=== PATIENT | male | born 1960 | race Caucasian/White ===

== ENCOUNTER 2023-08-20 16:35 | Inpatient (IN) ==
--- NOTE | 2023-08-20 16:52 | Emergency Department Note ---
Impression & Plan Acute confusion ED Provider Note HISTORY OF PRESENT ILLNESS: Patient is a 63-year-old male presenting with confusion. Patient presents in custody of the state troopers. Patient's reportedly called the police because he had pulled a gun on her. Patient denies he states that since his discharge from the [facility] 4 days ago, he has been having difficulties getting around at home and has been crawling on his hands and knees secondary to bilateral leg weakness. He denies any chest pain or shortness of breath. He denies any suicidal or homicidal ideation. He denies any current changes in vision, numbness or tingling or weakness in his extremities. Denies any abdominal pain. Denies any fevers. ROS: as above PHYSICAL EXAM: Constitutional: Patient appears in no acute distress. HENT: Head: Normocephalic and atraumatic. Eyes: EOMI, PERRL Mouth/Throat: Mucous membranes moist. Neck: Trachea midline. Neck supple. Cardiovascular: RRR, No murmurs, rubs or gallops. Intact distal pulses. Pulmonary/Chest: No respiratory distress. Breath sounds clear and equal bilaterally. No wheezes or rales. Abdominal: Abdomen soft, no tenderness, rebound or guarding. Musculoskeletal: No edema, tenderness or deformity noted. Skin: Warm and dry. No rash, erythema, pallor or cyanosis Psychiatric: Appropriate mood and affect for situation. Neurological: Alert and keenly responsive. CN II-XII grossly intact, moving all extremities equally and fully. MDM: - Vitals signs showed hypertension - History obtained via patient and EMS. History as above. - Chronic conditions affecting care: None - Differential diagnoses include, but are not limited to: pneumonia; electrolyte abnormality; CVA; worsening intracranial hemorrhage; UTI - Order placed for continuous cardiac monitoring. At this time, monitor showed rate of 72 bpm with normal sinus rhythm, per my interpretation. - External medical records reviewed. Discharge summary from [facility] dated 08/16/2023 was reviewed. Patient was admitted to their facility after being transferred from [facility] emergency department after presenting days after a fall off of a ladder and dizziness. He was found to have a subarachnoid, subdural and cortical contusions. His repeat CT imaging at their facility was stable. He was given seizure prophylaxis and plan for follow-up in TBI clinic in 2 weeks. He was evaluated by PT and OT and was recommended to be discharged home. He was discharged on 08/16/2023. - Laboratory workup interpreted by myself showed normal WBC; slight hypokalemia (K 3.4); normal lactate; normal troponin; normal CK; normal TSH - UA negative for infection - COVID negative - UDS positive for THC - CXR negative for pneumonia, per my interpretation - CT head wo contrast showed interval enlargement of a few foci of disease and development of new foci of intraparenchymal hemorrhage per radiology. - Discussed case with [facility] Neurosurgeon disposition clerk, Dr. Renteria at 18:26. He reviewed the patient's CT imaging at [facility] from a few days ago and today's CT imaging at [facility] that was pushed through to him. He states that there is no evidence of fresh blood. He reports that the hemorrhages appear stable. He does note that there seems to be some worsening edema around the hemorrhages which may account for the patient's confusion. However, he states there would be no need for surgery at this time. He states that the best treatment for these scenarios is time. He also suggested reloading the patient with a gram of Keppra and obtaining a spot EEG to assess for potential subclinical seizures. - Discussion was had with protective services case worker about patient's case and need for admission - Hospitalist consulted for admission - Patient complaining of pain - given 5 mg PO oxycodone. - Patient admitted to [facility] service for further evaluation and management. ASSESSMENT AND PLAN: Diagnosis: acute confusion Plan: admit Past Med/Surg History Social History Smoking Status: Unknown if ever smoked Preferred Language: Luxembourgish Feels Safe at Home: Hesitant to Answer Allergies Allergies Allergy/AdvReac Type Severity Reaction Status Date / Time No Known Allergies Allergy Unverified 01/17/13 13:33 Home Meds Home Medications Medication Instructions Recorded Confirmed Wound Cream See Rx Instructions .Route .COMPLEX 08/20/23 08/20/23 acetaminophen 325 mg PO UD PRN Pain 08/20/23 08/20/23 docusate sodium 100 mg capsule 100 mg PO BID 08/20/23 08/20/23 Results & Data (ED) Vital Signs Vital Signs - 24 hr 08/20/23 16:47 08/20/23 17:00 08/20/23 17:01 Temperature 36.8 C Temperature Source Axillary Pulse Rate 65 70 Pulse Rate [Apical] Pulse Rhythm Regular Pulse Rhythm [Apical] Pulse Strength [Apical] Respiratory Rate 18 20 Respiratory Effort / Characteristics Non-Labored Spontaneous Respiratory Depth Normal Respiratory Pattern Blood Pressure 157/100 H Blood Pressure [Left Arm] Blood Pressure Mean 119 Blood Pressure Mean [Left Arm] Pulse Oximetry 100 100 100 Oxygen Delivery Method Room Air Room Air Room Air Sepsis New/Unexplained Change in Mental Status Yes Sepsis Action Taken by Nursing No Action Required 08/20/23 17:06 08/20/23 17:21 08/20/23 19:37 Temperature Temperature Source Pulse Rate 73 Pulse Rate [Apical] 74 70 Pulse Rhythm Pulse Rhythm [Apical] Regular Pulse Strength [Apical] Normal Respiratory Rate 19 19 Respiratory Effort / Characteristics Non-Labored Spontaneous Non-Labored Spontaneous Respiratory Depth Normal Normal Respiratory Pattern Regular Blood Pressure Blood Pressure [Left Arm] 157/102 H 151/101 H Blood Pressure Mean Blood Pressure Mean [Left Arm] 120 117 Pulse Oximetry 97 96 Oxygen Delivery Method Room Air Room Air Sepsis New/Unexplained Change in Mental Status Sepsis Action Taken by Nursing Laboratory Data 08/20/23 16:52 08/20/23 16:52 Lab Results 08/20/23 08/20/23 08/20/23 Range/Units 16:52 17:14 Unknown WBC 7.59 (4.8-10.8) K/ul RBC 4.84 (4.70-6.10) M/uL Hgb 14.3 (14.0-18.0) g/dl Hct 40.5 L (42.0-52.0) % MCV 83.7 (80.0-100.0) fL MCH 29.5 (25.0-34.0) pg MCHC 35.3 (32.0-36.0) g/dL RDW Std Deviation 39.2 (36.4-46.3) fL RDW Coeff of Lovely 12.8 (11.5-14.5) % Plt Count 351 (130-400) K/uL MPV 8.6 L (9.4-12.4) fL Immature Gran % (Auto) 0.9 % Neut % (Auto) 63.2 % Lymph % (Auto) 23.1 % [place] % (Auto) 10.9 % Eos % (Auto) 1.4 % Baso % (Auto) 0.5 % Neut # (Auto) 4.79 (1.40-6.50) K/uL Lymph # (Auto) 1.75 (1.20-3.40) K/uL [place] # (Auto) 0.83 H (0.11-0.59) K/uL Eos # (Auto) 0.11 (0.00-0.50) K/uL Baso # (Auto) 0.04 (0.00-0.20) K/uL Immature Gran # (Auto) 0.07 (0.01-0.20) K/uL PT 11.0 (9.0-12.0) Seconds INR 1.0 (0.9-1.1) Sodium 134 L (136-145) mmol/L Potassium 3.4 L (3.5-5.1) mmol/L Chloride 98 (98-107) mmol/L Carbon Dioxide 29 (21-32) mmol/L Anion Gap 7 (3-11) BUN 17 (6-23) mg/dl Creatinine 0.71 (0.6-1.4) mg/dl Est Cr Clr Drug Dosing 107.2 ml/min Est GFR ( Amer) 115.7 ml/min Est GFR (Non-Af Amer) 99.9 ml/min BUN/Creatinine Ratio 23.9 H (10-20) Glucose 97 (70-99(Fasting)) mg/dl Lactate 1.2 (0.4-2.0) mmol/L Calcium 8.9 (8.6-10.3) mg/dl Magnesium 2.0 (1.7-2.4) mg/dl Total Bilirubin 0.5 (0.2-1.0) mg/dl AST 12 L (13-39) U/L ALT 16 (7-52) U/L Alkaline Phosphatase 71 (34-104) U/L Total Creatine Kinase 41 (30-223) U/L Troponin I High Sens 5.7 (0-20) pg/ml Total Protein 6.5 (6.0-8.3) gm/dl Albumin 4.2 (3.4-5.0) gm/dl Globulin 2.3 L (2.5-4.0) gm/dl Albumin/Globulin Ratio 1.8 (0.9-2) TSH 2.671 (0.300-4.500) uIu/ml Urine Color Dark Yellow Urine Appearance Clear (Clear) Urine pH 6.0 (4.5-7.5) Ur Specific [place] 1.027 (1.000-1.030) Urine Protein Negative (Negative) Urine Glucose (UA) Negative (Negative) Urine Ketones Trace H (Negative) Urine Blood Negative (Negative) Urine Nitrite Negative (Negative) Urine Bilirubin Negative (Negative) Urine Urobilinogen Positive H (Negative) Ur Leukocyte Esterase Negative (Negative) Urine Opiates Screen Neg (Neg) Ur Methadone, Qual Neg (Neg) Urine Barbiturates Neg (Neg) Ur Phencyclidine (PCP) Neg (Neg) U Amphetamin/Meth Scrn Neg (Neg) MDMA (Ecstasy) Screen Neg (Neg) U Benzodiazepines Scrn Neg (Neg) Ur Cocaine Metabolite Neg (Neg) U Marijuana (THC) Screen Pos H (Neg) SARS-CoV-2 (PCR) NEGATIVE (Negative) Administered Medications Discontinued Medications Oxycodone HCl (Oxycodone Hcl Ir 5 Mg Tab (Immediate Release)) 5 mg PO NOW STA Stop: 08/20/23 19:38 Last Admin: 08/20/23 19:45 Dose: 5 mg Documented By: [facility] Imaging Data Radiologist's Impression: Head CT 08/20/23 16:41 CT head/brain wo con CLINICAL HISTORY: confusion Technique: Contiguous axial CT images of the head were acquired from the base of the skull to the vertex without intravenous contrast administration. Images were viewed in brain, subdural and bone windows. Automated dose lowering techniques and/or adjustment according to patient size were utilized for this exam. Comparison: Comparison is made to CT head 08/13/2023 Findings: Previously noted foci of cortical contusions demonstrate expected evolutionary change. There are new foci of acute contusion such as in the right frontal lobe, and there is interval enlargement of the left frontotemporal focus of hemorrhage, previously measuring 21 mm, now 26 mm. Trace subarachnoid hemorrhage, less conspicuous on the prior exam. Mucous retention cysts are seen in the left maxillary sinus. The orbits appear normal. Redemonstration of scalp swelling, similar to prior. Impression: 1. Interval enlargement of a few foci of disease and development of new foci of intraparenchymal hemorrhage. 2. Previously noted subarachnoid and subdural hematomas are less conspicuous on today's exam which may reflect evolutionary change. 3. Scalp swelling. No calvarial fracture. ACT 112: Negative or not required by law. Electronically signed by: Boni Yost M.D. 08/20/2023 5:25 PM Chest X-Ray 08/20/23 16:50 XR chest 1V portable CLINICAL HISTORY: weakness TECHNIQUE: Single frontal radiograph of the chest was obtained. Comparison: Comparison is made to chest radiograph 09/10/2011 FINDINGS: No lines and tubes are seen. The cardiomediastinal silhouette is normal. The lungs are clear. No evidence of pleural effusion or pneumothorax. IMPRESSION: No acute chest disease. ACT 112: Negative or not required by law. Electronically signed by: Boni Yost M.D. 08/20/2023 5:15 PM Discharge Plan Visit Data Chief Complaint: Confusion Stated Complaint: CONFUSION ED Provider: Sandy Buck Discharge Problem: Acute confusion Forms Stand Alone Forms: [facility] Prescriptions Prescriptions: No Action docusate sodium 100 mg Capsule 100 mg PO BID acetaminophen 325 mg PO UD PRN (Reason: Pain) Rx Instructions: per it's 3 tablets daily Wound Cream See Rx Instructions .ROUTE .COMPLEX Rx Instructions: Unknown dose Bacitracin? per Referrals Referrals: PCP,NO [Primary Care Provider] -
[2023-08-20 17:11] LABS: Basophils # (auto) 0.04 K/uL (0.00-0.20); Basophils % (auto) 0.5 %; Eosinophils # (auto) 0.11 K/uL (0.00-0.50); Eosinophils % (auto) 1.4 %; Hematocrit (blood only) 40.5 % (42.0-52.0); Hemoglobin 14.3 g/dl (14.0-18.0); Immature Granulocytes # (auto) 0.07 K/uL (0.01-0.20); Immature Granulocytes % (auto) 0.9 %; Lymphocytes # (auto) 1.75 K/uL (1.20-3.40); Lymphocytes % (auto) 23.1 %; Mean Corpuscular Hemoglobin 29.5 pg (25.0-34.0); Mean Corpuscular Hgb Conc 35.3 g/dL (32.0-36.0); Mean Corpuscular Volume 83.7 fL (80.0-100.0); Mean Platelet Volume 8.6 fL (9.4-12.4); Monocytes # (auto) 0.83 K/uL (0.11-0.59); Monocytes % (auto) 10.9 %; Neutrophils # (auto) 4.79 K/uL (1.40-6.50); Neutrophils % (auto) 63.2 %; Platelet Count 351 K/uL (130-400); RDW Coefficient of Variation 12.8 % (11.5-14.5); RDW Standard Deviation 39.2 fL (36.4-46.3); Red Blood Count 4.84 M/uL (4.70-6.10); White Blood Count 7.59 K/ul (4.8-10.8)
--- NOTE | 2023-08-20 17:16 | XRay Report ---
XR chest 1V portable CLINICAL HISTORY: weakness TECHNIQUE: Single frontal radiograph of the chest was obtained. Comparison: Comparison is made to chest radiograph 09/10/2011 FINDINGS: No lines and tubes are seen. The cardiomediastinal silhouette is normal. The lungs are clear. No evid ence of pleural effusion or pneumothorax. IMPRESSION: No acute chest disease. ACT 112: Negative or not required by law. Electronically signed by: Boni Yost M.D. 08/20/2023 5:15 PM
--- NOTE | 2023-08-20 17:27 | CT Scan Report ---
CT head/brain wo con CLINICAL HISTORY: confusion Technique: Contiguous axial CT images of the head were acquired from the base of the skull to the ketty severino without intravenous contrast administration. Images were viewed in brain, subdural and bone [facility] Automated dose lowering techniques and/or adjustment according to patient size were utilized for this exam. Comparison: Comparison is made to CT head 08/13/2023 Findings: Previously noted foci of cortical contusions demonstrate expected evolutionary change. There are new foci of acute contusion such as in the right frontal lobe, and there is interval enlargement of the l eft frontotemporal focus of hemorrhage, previously measuring 21 mm, now 26 mm. Trace subarachnoid he morrhage, less conspicuous on the prior exam. Mucous retention cysts are seen in the left maxillary sinus. The orbits appear normal. Redemonstratio n of scalp swelling, similar to prior. Impression: 1. Interval enlargement of a few foci of disease and development of new foci of intraparenchymal hem orrhage. 2. Previously noted subarachnoid and subdural hematomas are less conspicuous on today's exam which m ay reflect evolutionary change. 3. Scalp swelling. No calvarial fracture. ACT 112: Negative or not required by law. Electronically signed by: Boni Yost M.D. 08/20/2023 5:25 PM
[2023-08-20 17:31] LABS: Albumin Globulin Ratio 1.8 (0.9-2); Albumin Level 4.2 gm/dl (3.4-5.0); BUN Creatinine Ratio 23.9 (10-20); Bilirubin,Total 0.5 mg/dl (0.2-1.0); Calcium 8.9 mg/dl (8.6-10.3); Creatinine Clr Calc Pharmacy 107.2 ml/min; Est GFR (African American) 115.7 ml/min; Est GFR (Non-African American) 99.9 ml/min; Globulin 2.3 gm/dl (2.5-4.0); Potassium 3.4 mmol/L (3.5-5.1); Total Protein 6.5 gm/dl (6.0-8.3)
[2023-08-20 17:33] LABS: Appearance Urine Clear (Clear); Bilirubin Urine Negative (Negative); Blood Urine Negative (Negative); Color Urine Dark Yellow; Glucose Urine UA Negative (Negative); Ketones Urine Trace (Negative); Leukocyte Esterase Urine Negative (Negative); Nitrite Urine Negative (Negative); Protein Urine Negative (Negative); Specific Gravity Urine 1.027 (1.000-1.030); Urobilinogen Urine Positive (Negative)
[2023-08-20 17:36] LABS: Troponin I High Sensitivity 5.7 pg/ml (0-20)
[2023-08-20 17:46] LABS: Thyroid Stimulating Hormone 2.671 uIu/ml (0.300-4.500)
[2023-08-20 18:06] LABS: Amphetamines+Metham, Urine Neg (Neg); Barbiturates, Urine Neg (Neg); Benzodiazepine, Urine Neg (Neg); Cocaine, Urine Neg (Neg); MDMA (Ecstacy), Urine Neg (Neg); Marijuana, Urine Pos (Neg); Methadone, Urine Neg (Neg); Opiate, Urine Neg (Neg); Phencyclidine, Urine Neg (Neg)
[2023-08-20] MEDS: oxyCODONE HCL IR 5 MG TAB (IMMEDIATE RELEASE) PO STA (19:45)
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
[2023-08-20] MEDS ORDERED: POLYETHYLENE (MIRALAX) 17 GM PACK PO PRN (22:02)
[2023-08-20] MEDS ORDERED: LORazepam 1.5 MG in SYRINGE 0.75 ML IV PRN (22:02)
[2023-08-20] MEDS ORDERED: NITROGLYCERIN SL 0.4 MG/TAB TAB SL PRN (22:02)
[2023-08-20] MEDS: DOCUSATE SODIUM 100 MG CAP PO SCH (22:41)
[2023-08-20] MEDS: POTASSIUM CHLORIDE CRTAB 20 MEQ TABCR PO STA (22:41)
[2023-08-20] MEDS: ACETAMINOPHEN 325 MG TAB PO PRN (23:25)
--- OUTSIDE RECORDS SUMMARY | 2023-08-21 01:14 | External Medical Summary | Summary of Care ---
Author Name Unknown Organization [facility] Address [address] [place] [address] Phone [phone] Care Team Providers Care Heel Slugger Name Role Phone Unavailable Primary Care Provider Unavailabl e Reason for Referral * Precert (Within 10 days (routine)) - Pending Review Specialty Diagnoses / Procedures Referred By Contac t Referred To Contact Radiology Diagnoses SDH (subdural hematoma) (HCC) SAH (subarachnoid hemorrhage) (HCC) Intracranial bleed (HCC) Procedures CT HEAD/BRAIN WO CONTRAST Garrick Woods MD [address] [place] [address] Referral ID Status Reason Start Date Expiration Date V isits Requested Visits Authorized [id number] Pending Review 08/29/2023 999 999 Reason for Visit * Reason Comments Trauma Fall * Auth/Cert Specialty Diagnoses / Procedures Referred By Contac t Referred To Contact Diagnoses Trauma Gerardo Arango MD [address] [place] [address] [facility] [address] [place] [address] Referral ID Status Reason Start Date Expiration Date Visits Re quested Visits Authorized [id number] Encounter Details Date Type Department Care Team (Latest Contact Info) Description 08/13/2023 12:59 PM EDT - 08/16/2023 2:51 PM EDT Hospital Encounter [facility], [facility] 6th Floor [address] [place] [address] Yuniel Mohan MD [address] [place] [address] Gerardo Arango MD [address] [place] [address] Jose Jackson DO [address] [place] [address] EKG Report Discharge Disposition: Home with Services Allergies No known active allergiesdocumented as of this encounter (statuses as of 08/17/2023) Medications Medication Sig Dispensed Refills Start Date End Date Status Acetaminophen 325 MG Oral Tablet (Tylenol) Take 3 Tablets by mouth every 6 hours as needed for Mild Pain or Other (headache). 30 Tablet 0 08/16/2023 Active Bacitracin Zinc 500 UNIT/GM External Ointment Apply topically to affected area 2 times a day for 7 days. Apply to abrasions 113.6 g 0 08/16/2023 08/23/2023 Active Docusate Sodium 100 MG Oral Capsule (Colace) Take 1 Capsule by mouth in the morning and 1 Capsule before bedtime. Do all this for 5 days. 10 Capsule 0 08/16/2023 08/21/2023 Active levETIRAcetam 500 MG Oral Tablet (Keppra) Take 1 Tablet by mouth in the morning and 1 Tablet before bedtime. Do all this for 4 days. 8 Tablet 0 08/16/2023 08/20/2023 Active oxyCODONE HCl 5 MG Oral Tablet (Oxy IR) Take 1 Tablet by mouth every 6 hours as needed for moderate pain. 12 Tablet 0 08/16/2023 Active documented as of this encounter (statuses as of 08/17/2023) Active Problems Problem Noted Date Diagnosed Date Fall from ladder 08/13/2023 Intracranial bleed 08/13/2023 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 documented as of this encounter (statuses as of 08/17/2023) Immunizations Name Administration Dates Next Due TDAP (age 11 and older)(Adacel) 08/13/2023 documented as of this encounter Social History Tobacco Use Types Packs/Day Years Used Date Smoking Tobacco: Former Cigarettes 1.5 3 0 06/04/1976 - 06/04/1979 Smokeless Tobacco: Never Tobacco Cessation:Counseling Given: Not Answered Alcohol Use Standard Drinks/Week Comments Not Currently 5 (1 standard drink = 0.6 oz pur e alcohol) Sex and Gender Information Value Date Recorded Sex Assigned at Not on file Gender Identity Not on file Sexual Orientation Not on file Job Start Date Occupation Industry Not on file Not on file Not on file documented as of this encounter Last Filed Vital Signs Vital Sign Reading Time Taken Comments Blood Pressure 141/85 08/16/2023 2:25 PM EDT Pulse 55 08/16/2023 2:25 PM EDT Temperature 36.5 C (97.7 F) 08/16/2023 2:25 PM ED T Respiratory Rate 16 08/16/2023 2:25 PM EDT Oxygen Saturation 96% 08/16/2023 2:25 PM EDT Inhaled Oxygen Concentration - - Weight 78 kg (171 lb 15.3 oz) 08/15/2023 8:00 AM EDT Height 185.4 cm (6' 1") 08/13/2023 2:15 PM EDT Body Mass Index 22.69 08/13/2023 2:15 PM EDT documented in this encounter Functional Status Functional Status Response Date of Assess ment Are you deaf or do you have serious difficulty h earing? No 08/13/2023 Are you blind or do you have serious difficulty seeing, even when wearing glasses? No 08/13/2023 Do you have serious difficul ty walking or climbing stairs? (5 years old or older) No 08/13/2023 Do you have difficulty dress ing or bathing? (5 years old or older) No 08/13/2023 Because of a physical, menta l, or emotional condition, do you have difficulty doing errands alone such as visiting a doctor s office or shopping? (15 years old or older) No 08/13/19 Cognitive Status Response Date of Assessm ent Because of a physical, menta l, or emotional condition, do you have serious difficulty concentrating, remembering, or making decisions? (5 years old or older) No 08/13/2023 documented as of this encounter Discharge Summaries * Bria Dooley PA-C - 08/16/2023 10:55 AM EDT [address] [address] Admission Date: 08/13/2023 Discharge Date: 08/16/2023 DISCHARGE DIAGNOSES: Active Hospital Problems Diagnosis *Principal Diagnosis - Fall from ladder Intracranial bleed (HCC) Resolved Hospital Problems No resolved problems to display. Other Significant Diagnoses: none CONDITION ON DISCHARGE: stable Cognition: normal DISPOSITION ON DISCHARGE: home with home health FOLLOW-UP: Future Appointments This patient does not currently have any appointments scheduled. MEDICATIONS ON DISCHARGE: MEDICATION UPDATES AT DISCHARGE START taking these medications INSTRUCTIONS Acetaminophen 325 MG Tablet Commonly known as: Tylenol Take 3 Tablets by mouth every 6 hours as needed for Pain, Mild or Other (headache). bacitracin zinc 500 UNIT/GM ointment Apply topically to affected area 2 times a day for 7 days. Apply to abrasions Docusate Sodium 100 MG Capsule Commonly known as: Colace Take 1 Capsule by mouth in the morning and 1 Capsule before bedtime. Do all this for 5 days. levETIRAcetam 500 MG Tablet Commonly known as: Keppra Take 1 Tablet by mouth in the morning and 1 Tablet before bedtime. Do all this for 4 days. oxyCODONE 5 MG immediate release tablet Commonly known as: Oxy IR Take 1 Tablet by mouth every 6 hours as needed for Pain, Moderate. ALLERGIES: Patient has no known allergies. INSTRUCTIONS: Activity: No strenuous activity for 4 weeks Diet: normal diet Code Status: Full Code Indwelling devices: none ADMISSION HISTORY & PHYSICAL EXAM (focused): HISTORY AND PHYSICAL EXAMINATION - Trauma Surgery [address] [address] Name: Mikey Neal Location: Date: 08/13/2023 Time: 1:04 PM Date and Time Patient was Seen: 08/13/2023 at 13:10:09 FINAL ADMISSION STATUS: Alert Level 2, time - 1233 Dr. Arango led the Trauma Team in the care of this patient. The following represents documentation of the resuscitation performed by the entire trauma team under the leadership of the physician. There was pre-hospital notification of the case and patient condition. Chief Complaint: Fell off ladder History of Present Illness: 63 year old male with no significant past medical history who presents 2 days after falling off a ladder about 7-10 feet. He was climbing down when he had one foot off the rungs of the ladder resulting in him falling. He landed on his right side trying to break his fall and then striking his head. Witnessed by his who per EMS reported was brief LOC. [place] okay but started to develop worseningdizziness which prompted them to take him to the ED at [facility] today. Did vomit once yesterday while trying to eat. Denies fevers, chills, pain, abd pain, chest pain, extremity pain, numbness, tingling, HOLT. Scanned at [facility] which found SDH, SAH, and cortical contusions. Brought here for further management. Hasn't seen a PCP in decades. Denies significant PMHx, surgical hx. Denies smoking, recreational drugs (did weed many many years back), and ETOH use. MECHANISM OF INJURY: Fall Height of Fall: 7-10ft MODE OF TRANSPORTATION: helicopter LOSS OF CONSCIOUSNESS: yes TETANUS VACCINE: There are no preventive care reminders to display for this patient. Administered in Trauma Comal: no PAST MEDICAL HISTORY: Past Medical History No past medical history on file. PAST SURGICAL HISTORY: Past Surgical History Past Surgical History: Procedure Laterality Date EGD-ENDOSCOPIC ULTRASOUND 10/10/2011 UPPER GI ENDOSCOPY ENDOSCOPIC ULTRASOUND performed by DALY BLANCO at [facility], NO INFLAMMATION CURRENT HOSPITAL MEDICATIONS: Note that discontinued and completed medications (per the MAR) continue to display for 24 hours. Ordered medications to be given in the future also display. Current Facility-Administered Medications Medication Dose Route Frequency Provider Acetaminophen (Tylenol) tab 975 mg 975 mg Oral Q6H Huseyin Shetty PA-C bacitracin zinc ointment Topical BID(AM/PM) Tiffany Sims PA-C Docusate Sodium (Colace) cap 100 mg 100 mg Oral BID(AM/PM) Huseyin Shetty PA-C levETIRAcetam (Keppra) 500 mg in 100 mL ivpb *LOCKED DOSE* 500 mg IV Piggyback BID(AM/PM) Huseyin Shetty PA-C NSS infusion Intravenous Continuous Huseyin Shetty PA-C ondansetron ODT (Zofran) tab 4 mg 4 mg On Tongue Q6H PRN Huseyin Shetty PA-C Or ondansetron (Zofran) inj 4 mg 4 mg IV Push Q6H PRN Huseyin Shetty PA-C oxyCODONE (Oxy IR) tab 10 mg 10 mg Oral Q4H PRN Huseyin Shetty PA-C oxyCODONE (Oxy IR) tab 5 mg 5 mg Oral Q4H PRN Huseyin Shetty PA-C senna (Senokot) 2 Tablet 2 Tablet Oral BID(AM/PM) Huseyin Shetty PA-C No current outpatient medications on file. ALLERGIES: Allergies Patient has no known allergies. SOCIAL HISTORY: Social History Social History Tobacco Use Smoking status: Former Current packs/day: 0.00 Average packs/day: 1.5 packs/day for 3.0 years (4.5 ttl pk-yrs) Types: Cigarettes Start date: 06/04/1976 Quit date: 06/04/1979 Years since quittin.2 Smokeless tobacco: Not on file Substance Use Topics Alcohol use: Yes Alcohol/week: 5.0 standard drinks of alcohol Types: 6 12 oz of beer per week Drug use: No FAMILY HISTORY: No family history on file. REVIEW OF SYSTEMS: Constitutional: (-) fever chills sweats or weight loss Cardiovascular: (-) negative: no chest pain, dyspnea, syncope, or palpitations Pulmonary: (-) negative: no cough, wheezing, or shortness of breath Abdominal/GI: (-) negative: no pain, heartburn, dysphagia, bleeding, change in bowel habits, nauseaor vomiting Male : unremarkable Skin: (-) negative: no rash or new or changing moles Neurology: (+) nausea Psychiatry: (-) negative: no depression or anxiety See HPI for pertinent positives and negatives, all other systems are negative. COLLARED: yes BACKBOARD: no INTUBATED: no SIZE OF TUBE: N/A DISTANCE AT TEETH/GUMS: N/A PHYSICAL EXAM: Most Recent Vital Signs: BP: 134 mmHg/86 mmHg (08/13/23 1335) Pulse: 65 (08/13/23 1335) Temp: 36.22 C (08/13/23 1310) Temp Summary: Temp Min: 36.2 C (97.2 F) Max: 36.2 C (97.2 F) SpO2: 100 % (08/13/23 1335) O2 flow rate: Supplemental O2 Delivery: Room Air, None (08/13/23 1310) Rhythm: NSR Head: normocephalic, 1.3cm superficial/partial thickness laceration left posterior scalp Eyes: pupils 2 mm, bilaterally reactive to light, extraocular muscles intact ENT: tympanic membranes bilaterally clear, oropharynx clear, dried blood left external ear Neck: supple, non-tender, trachea midline Respiratory: clear to auscultation bilaterally Cardiovascular: regular rate and rhythm, palpable peripheral pulses present, no murmurs auscultated Abdomen: soft, non-tender, non-distended, normal bowel sounds Back: no tenderness across thoracic / lumbar spine Pelvis: non-tender, stable to anterior-posterior/lateral compression Rectal: deferred, no external blood Genitourinary: normal male genitalia Musculoskeletal: no palpable long bone deformities, motor / sensation grossly intact Skin: scattered ecchymosis of all extremities in various stages of healing, left elbow superifical 3cm laceration w scab Neurologic: GCS Adult: eyes open 4 = spontaneous, best verbal response 5 = verbally appropriate forage, best motor response 6 = obeys commands appropriate for age, alert and oriented x3 HOSPITAL COURSE (focused): Mikey Neal was admitted on 08/13/23 after a fall from a ladder two days previously. He was initially seen at [facility] were CT scan showed SHD, SAH, and IPH and he was transferred to [facility] where Neurosurgery was consulted and a repeat CT scan was done and was stable. He was given seizure prophylaxis per protocol and a planned follow up in TBI clinic will be scheduled in 2 weeks. He was evaluated by physical and occupational therapies and was able to return home with family on 08/16/23. Operations & Procedures: none this admission Complications: none significant SIGNIFICANT RESULTS: Vital Signs (last recorded): Most Recent Systolic BP: 127 mmHg (08/16/23 1118) Most Recent Diastolic BP: 79 mmHg (08/16/23 1118) Pulse: 56 (08/16/23 1118) Resp: 16 (08/16/23 1118) Most Recent Temperature: 36.67 C (08/16/23 1118) Weight: 78 kg (171 lb 15.3 oz) (08/15/23 0800) SpO2: 95 % (08/16/23 1118) Labs: CHEMISTRY: BUN, Creatinine, GFR Estimated, Sodium, Potassium, Chloride, Carbon Dioxide, Glucose, Calcium (see below for most recent value): Lab Results Component Value Date/Time BUN 14 08/16/2023 06:58 AM CREAT 0.5 (L) 08/16/2023 06:58 AM NA 131 (L) 08/16/2023 06:58 AM POTASSIUM 3.9 08/16/2023 06:58 AM CL 98 08/16/2023 06:58 AM CO2 20 (L) 08/16/2023 06:58 AM CA 8.7 08/16/2023 06:58 AM BLOOD COUNT: WBC, Hgb, Platelets (see below for most recent value): Lab Results Component Value Date/Time WBC 8.84 08/16/2023 06:58 AM HGB 14.5 08/16/2023 06:58 AM PLT 276 08/16/2023 06:58 AM Imaging (focused): CT HEAD/BRAIN WO CONTRAST Final Result EXAM CT HEAD/BRAIN WO CONTRAST - 08/14/2023 12:21 pm HISTORY new confusion. Assess for worsening bleed TECHNIQUE Axial scans were obtained through the brain using standard protocol. Coronal and sagittal reconstructions were performed. COMPARISON 08/13/2023 FINDINGS Again seen are multiple hemorrhagic contusions, predominantly in the inferior frontal and anterior temporal lobes more. There is some surrounding vasogenic edema. Small subdural hematomas along the frontal and temporal convexities, small amount of intraventricular and subarachnoid blood are again seen. There is no appreciable change. No midline shift, hydrocephalus, or effacement of cisterns. No scalp hematoma again seen. No fluid seen in the sinuses and mastoid air cells. IMPRESSION IMPRESSION Stable posttraumatic hemorrhages in the brain. CT HEAD/BRAIN WO CONTRAST Final Result EXAM CT HEAD/BRAIN WO CONTRAST HISTORY repeat TBI COMPARISON Outside study dated 08/13/2023 performed at proximally 10:[address] scan of the head was performed without intravenous contrast. FINDINGS Redemonstrated hemorrhagic contusions involving the right greater than left inferior frontal lobes, left frontal operculum, right lateral frontal lobe and anterior temporal lobes. Scattered subarachnoid hemorrhage is also present. Trace subdural hematomas are also seen along the inferior frontal convexities. Overall findings are similar to the previous study. No midline shift. Generalized volume loss is present with prominence of the ventricles and sulci. Mild paranasal sinus mucosal thickening is present. A mucous retention cyst is seen within the left maxillary sinus. IMPRESSION IMPRESSION Redemonstrated hemorrhagic contusions, subarachnoid hemorrhage, and trace subdural hematomas, similar to the previous study. XR CHEST 1 VIEW Final Result EXAM: EXAM: XR CHEST 1 VIEW DATE TIME: 08/13/2023 - 08/13/2023 1:41 pm HISTORY: 63 y/o M trauma COMPARISON: None FINDINGS: No focal consolidation, pleural effusion, or pneumothorax. Cardiac silhouette is normal in size. No acute osseous abnormality. IMPRESSION IMPRESSION: No acute cardiopulmonary disease. RADIOLOGY EXAM - CT (IMAGES ONLY, NO REPORT) Final Result This is an imaging study not interpreted or resulted by a [employer] or [employer] contracted radiologist. RADIOLOGY EXAM - CT (IMAGES ONLY, NO REPORT) Final Result This is an imaging study not interpreted or resulted by a [employer] or [employer] contracted radiologist. CT HEAD/BRAIN WO CONTRAST (Results Pending) CONSULTS ORDERED: NEUROSURGERY CONSULT IP ADULT OCCUPATIONAL THERAPY CONSULT IP ADULT PHYSICAL THERAPY CONSULT IP ADULT SPEECH THERAPY CONSULT IP (ACUTE CARE REHAB) PSYCHOLOGY CONSULT IP BALANCE CENTER CONSULT IP REFERRING PHYSICIAN: Ref: [id number]] NO STREET ADDRESS AVAILABLE None (office) None (fax) PRIMARY CARE PROVIDER: PCP: No primary care provider on file. No primary physician on file. None (office) None (fax) Note: To contact a physician responsible for this patients hospital care, please call [facility] [phone]. documented in this encounter Discharge Instructions * Discharge Instr - AVS* Bria Dooley PA-C - 08/16/2023 11:20 AM EDT Discharge Date: 08/16/23 For questions related to your brain injuries you may contact [facility] Neurosurgery directly at during normal business hours. For after-hours emergencies call [phone] and have your doctor paged. The information below provides you with the instructions and the list of medications you need to betaking following discharge from the hospital. If you have any questions, please ask before leaving.Please carry this letter with you when you see your doctor in the clinic. If you have questions, you can reach us at the numbers above. Brief summary of your inpatient care: You were seen by neurosurgery for your traumatic brain injuries (multiple areas of head bleeds) Youwere watched closely with neurological checks. You were given medication (Keppra) to prevent seizures. You need to continue taking this medication as prescribed for total of 1 week after injury. You had a repeat CAT scan to ensure that the head bleed remained stable. You will need to follow-up withneurosurgery clinic in 2 weeks. DO NOT take any blood thinners including Aspirin or Plavix medication until told you can restart by neurosurgery during follow-up. You also should not take any of the following over the counter medications that can lead to increased bleeding. (Aspirin, Motrin aka Ibuprofen, Aleve aka Naproxen, and Fish Oil) Call your healthcare provider right away if you develop any of the following as new symptoms and/orif your current symptoms have worsened or are no longer responding to the recommended treatment: Unrelenting Nausea/Vomiting Constant drowsiness or trouble waking up Confusion or memory loss Blurred vision Trouble walking, talking, or concentrating Increased weakness or problems with coordination Constant headache that cant be relieved or gets worse Changes in behavior or personality Your doctors during this hospitalization included: Operations & Procedures: None Complications: none significant Diet: Normal diet Activity: No strenuous activity for 4 weeks Driving: Do not drive until you are cleared by Neurosurgery and no longer require narcotic pain medication Date you may return to work or school: Based on further instruction reviewed by surgeon after follow up visit. See your primary care physician (No primary care provider on file.) in 1-2 week(s). Recommendation to establish care documented in this encounter Progress Notes * Keyon Pedroza MD - 08/16/2023 5:20 AM EDT PROGRESS NOTE - Trauma Surgery [facility]-[address] [address] Name: Mikey Neal Location: [facility] [id number] Date: 08/16/2023 Time: 12:20 PM HOSPITAL DAY#: 3 ROUNDING SURGEON: Dr. Arango ADMISSION DATE: 08/13/2023 OPERATIONS / PROCEDURES: N/A INJURY COMPLEX: Principal Problem: Fall from ladder (POA: Unknown) Active Problems: Intracranial bleed (HCC) (POA: Unknown) POA = Present On Admission INTERIM HISTORY (LAST 24 HOURS): Patient transferred out of ICU yesterday. NAEON. Patient resting comfortably. States that he couldn't sleep last night. Denies any headache, dizziness, vision changes, chest pain, SOB, or weakness. 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 States that he did better today. Asking to go home. PHYSICAL EXAMINATION: Most Recent Vital Signs: BP: 127 mmHg/79 mmHg (08/16/231117) Pulse: 56 (08/16/231117) Temp: 36.67 C (08/16/231117) Temp Summary: Temp Min: 36.3 C (97.3 F) Max: 36.7 C (98.1 F) SpO2: 95 % (08/16/231117) O2 flow rate: Supplemental O2 Delivery: Room Air, None (08/16/231117) SpO2: 95 % (08/16/231117) Rhythm: NSR Vital Signs Last 24 Hours: Systolic BP: Most Recent Systolic BP Av.4 mmHg Min: 127 mmHg Max: 161 mmHg Temperature: Most Recent Temperature Av.5 C Min: 36.28 C Max: 36.72 C Pulse: Pulse Av.1 Min: 44 Max: 80 Respirations: Resp Av.8 Min: 11 Max: 20 SpO2: SpO2 Av % Min: 92 % Max: 100 % Pain Assessment (0-10): 0 Intake/Output Summary (Last 24 hours) at 08/16/2023 1220 Last data filed at 08/16/2023 1118 Gross per 24 hour Intake 600 ml Output 1550 ml Net -950 ml Head: laceration to left posterior scalp with scabbing Eyes: pupils 2 mm, bilaterally reactive to light, extraocular muscles intact ENT: tympanic membranes bilaterally clear, oropharynx clear Neck: full range of motion Respiratory: clear to auscultation bilaterally Cardiovascular: regular rate and rhythm, palpable peripheral pulses present Abdomen: soft, non-distended, non-tender Musculoskeletal: motor / sensation grossly intact Skin: scattered ecchymosison all extremities Neurologic: GCS Adult: eyes open 4 = spontaneous, best verbal response 5 = verbally appropriate forage, best motor response 6 = obeys commands appropriate for age, alert and oriented x3 DEVICES Elizondo: no Tracheostomy: no NGT/OGT: no PEG: no Chest Tube(s): No Central Venous Catheter: No PICC Line(s): No TEDs/SCDs: yes IVC Filter: no Cervical Collar: no Thoracolumbar Fixation: no DIET: regular ACTIVITY LEVEL: as tolerated ALLERGIES Patient has no known allergies. LABORATORIES Labs reviewed as indicated below: Recent Results (from the past 12 hour(s)) CBC Collection Time: 08/16/23 6:58 AM Result Value Ref Range WBC 8.84 4.00 - 10.80 K/uL RBC 4.66 4.50 - 5.25 M/uL HGB 14.5 14.0 - 16.8 g/dL HCT 40.0 40.0 - 48.4 % MCV 85.8 82.0 - 99.5 fL MCH 31.1 27.0 - 34.0 pg MCHC 36.3 32.0 - 36.0 g/dL RDW 12.8 11.5 - 15.5 % PLT 276 140 - 400 K/uL MPV 9.0 6.6 - 11.1 fL nRBCs 0 <=0 /100 WBCs BASIC METABOLIC PANEL Collection Time: 08/16/23 6:58 AM Result Value Ref Range BUN 14 6 - 20 mg/dL Creatinine 0.5 (L) 0.6 - 1.2 mg/dL Estimated Glomerular Filtration Rate >90 >=60 mL/min Sodium 131 (L) 135 - 146 mmol/L Potassium 3.9 3.5 - 5.1 mmol/L Chloride 98 98 - 107 mmol/L CO2 20 (L) 22 - 32 mmol/L Anion Gap 13 7 - 15 mmol/L Glucose 101 70 - 120 mg/dL Calcium 8.7 8.4 - 10.2 mg/dL CALCIUM, IONIZED Collection Time: 08/16/23 6:58 AM Result Value Ref Range Calcium, Ionized 1.18 1.13 - 1.32 mmol/L MAGNESIUM Collection Time: 08/16/23 6:58 AM Result Value Ref Range Magnesium 2.2 1.5 - 2.6 mg/dL PHOSPHORUS Collection Time: 08/16/23 6:58 AM Result Value Ref Range Phosphorus 3.3 2.5 - 4.8 mg/dL CULTURES / SENSITIVITIES No results found for the last [address] HEAD/BRAIN WO CONTRAST Result Date: 08/14/2023 IMPRESSION Stable posttraumatic hemorrhages in the brain. CT HEAD/BRAIN WO CONTRAST Result Date: 08/13/2023 IMPRESSION Redemonstrated hemorrhagic contusions, subarachnoid hemorrhage, and trace subdural hematomas, similar to the previous study. XR CHEST 1 VIEW Result Date: 08/13/2023 IMPRESSION: No acute cardiopulmonary disease. ASSESSMENT/PLAN Patient is a 63 yo male s/p fall from ladder sustaining the injury complex below. Principal Problem: Fall from ladder (POA: Unknown) Active Problems: Intracranial bleed (HCC) (POA: Unknown) POA = Present On Admission Subdural Hematoma Subarachnoid Hemorrhage Intraparenchymal Hemorrhage + Vasogenic edema seen on imaging Stable repeat imaging Neurosurgery consulted. Recommendations as of 08/14 routine neurochecks Keppra 500mg BID x7 days Eunatremia Call neurosurgery with change in patient's neuro exam / status DVT ppx with TEDs/SCDs/SQH Will follow up in 2 weeks with TBI clinic with [facility] Keppra 500 mg BID for 7 days (Ends on 08/19 Sinus Bradycardia Obtain EKG and Echo obtained 08/13. Within normal limits General Diet: Regular diet after speech consult 08/13 Bowel Regimen: Docusate Sodium (Colace) 100 mg BID and Senna 2 tabs BID Physical & Occupational therapy consulted DISPO: medically cleared for discharge today Patient discussed with and seen by Dr. Arango. Keyon Pedroza MD General Surgery PGY-1 08/16/2023 12:30 PM Associated attestation - Gerardo Arango MD - 08/16/2023 1:13 PM EDT I saw and evaluated the patient today. I have reviewed the trainee note and agree. - Still having some balance issues but reports they are improving - Was able to ambulate with a walker but had to stop a few times when he felt dizzy - Discharge home today * Jose Jackson DO - 08/15/2023 9:05 AM EDT CCM - PROGRESS NOTE [address] [address] Name: Mikey Neal Location: [facility] [place] G503/A Date: 08/15/2023 Time: 9:05 AM Date of admission: 08/13/2023 Hospital length of stay: 2 days PATIENT DESCRIPTION: 63 year old male with no significant past medical history who presents 2 days after falling off a ladder about 7-10 feet. He was climbing down when he had one foot off the rungs of the ladder resulting in him falling. He landed on his right side trying to break his fall and then striking his head. Witnessed by his who per EMS reported was brief LOC. [place] okay but started to develop worseningdizziness which prompted them to take him to the ED at [facility] today. Did vomit once yesterday while trying to eat. Denies fevers, chills, pain, abd pain, chest pain, extremity pain, numbness, tingling, HOLT. Scanned at [facility] which found SDH, SAH, and cortical contusions. Brought here for further management. Hasn't seen a PCP in decades. Denies significant PMHx, surgical hx. Denies smoking, recreational drugs (did weed many many years back), and ETOH use. PROBLEMS AND INJURY COMPLEX: Mechanical fall from height (7-10 ft) Subdural Hematoma Subarachnoid hemorrhage Intraparenchymal hemorrhage Superficial Scalp Laceration Mild Hyponatremia SUMMARY OF EVENTS: 08/12: Admitted to [facility] [place]. Repeat CT head stable 08/13: Speech consult. Diet started. SQH started. Echo obtained INTERIM HISTORY OVER LAST 24 HRS: Doing well. Alert and oriented. Describes some dizziness occasionally and still have occasional headaches. OBJECTIVE: Vital Signs (Most Recent): Pulse: 49 (08/15/23699) BP: 132/104 (08/15/23699) Resp: 18 (08/15/23699) Temp: 36.8 C (98.2 F) (08/15/23799) SpO2: 99 % (08/15/23699) Physical Examination: Head: normocephalic, 1.3cm superficial/partial thickness laceration left posterior scalp Eyes: pupils 2 mm, extraocular muscles intact ENT: tympanic membranes bilaterally clear, oropharynx clear Neck: supple, non-tender, trachea midline Respiratory: symmetric chest rise and normal work of breathing Cardiovascular: regular rate and rhythm Abdomen: soft, non-tender, non-distended Musculoskeletal: motor / sensation grossly intact Skin: scattered ecchymosis of all extremities in various stages of healing, left elbow superifical 3cm laceration w scab Neurologic: GCS Adult: eyes open 4 = spontaneous, best verbal response 5 = verbally appropriate forage, best motor response 6 = obeys commands appropriate for age, alert and oriented x3 Laboratory Values: CBC Lab results within last 7 days (see chart for full results) Units 08/15/23 0639 08/14/23 0638 08/13/23 1320 WBC K/uL 7.55 8.73 12.05* HGB g/dL 14.1 14.3 14.4 HCT % 40.0 41.0 40.9 PLT K/uL 283 277 310 BMP Lab results within last 7 days (see chart for full results) Units 08/15/23 0639 08/14/23 0639 08/13/23 1320 Sodium mmol/L 132* 135 132* Potassium mmol/L 3.4* 3.7 3.9 Chloride mmol/L 97* 102 98 CO2 mmol/L 23 23 23 BUN mg/dL 13 16 17 Creatinine mg/dL 0.5* 0.6 0.5* Glucose mg/dL 99 106 126* Ca, Mg, Phos Lab results within last 7 days (see chart for full results) Units 08/15/23 0639 08/14/23 0639 08/13/23 1320 Calcium mg/dL 8.8 8.6 8.9 Magnesium mg/dL 2.1 2.1 -- Phosphorus mg/dL 2.8 2.8 -- Hepatic Function Panel Lab results within last 7 days (see chart for full results) Units 08/13/23 1320 AST U/L 22 Lipase No results in the last 7 days - inpatent use only Troponins No lab exists selected component "HSTNT" Coags Lab results within last 7 days (see chart for full results) Units 08/13/23 1320 INR 1.0 Lactic acid Lab results within last 7 days (see chart for full results) Units 08/13/23 1320 Lactate mmol/L 1.3 Arterial Blood Gas No results in the last 7 days - inpatent use only Radiographic Studies: CT HEAD/BRAIN WO CONTRAST Result Date: 08/14/2023 IMPRESSION Stable posttraumatic hemorrhages in the brain. Cultures: Recent Cultures (2 Weeks) 08/13/2023 5:18 PM QUANT URINE CULTURE GROWTH No significant growth Assessment & Plan Principal Problem: Fall from ladder (POA: Unknown) Active Problems: Intracranial bleed (HCC) (POA: Unknown) POA = Present On Admission SYSTEMS BASED PLAN NEUROLOGIC: Subdural Hematoma Subarachnoid Hemorrhage Intraparenchymal Hemorrhage + Vasogenic edema seen on imaging Neurosurgery consulted. Recommendations as of 08/14 routine neurochecks Keppra 500mg BID x7 days Hold anticoagulation/antiplatelets Eunatremia Judicious use of IV fluids Call neurosurgery with change in patient's neuro exam / status DVT ppx with TEDs/SCDs/SQH Will follow up in 2 weeks with TBI clinic with [facility] Thank you for the opportunity to participate in the care of this patient. We will sign off at this time. Please contact us with any further questions. Keppra 500 mg BID for 7 days (Ends on 08/19) Analgesia and Sedation Delirium/Confusion Assessment: Pain: Tylenol 975 mg q6h, Oxycodone 5/10 mg q4h PRN, HEAD / EARS / EYES / NOSE / THROAT: Superficial Scalp Laceration Local wound care PULMONARY / RESPIRATORY: No acute issues Wean to room air Pulmonary Toilet IS, Flutter therapy, RPDP CARDIOVASCULAR: Sinus Bradycardia Obtain EKG and Echo obtained 08/13. Within normal limits GASTROINTESTINAL / HEPATOBILIARY: Global Diet: Regular diet after speech consult 08/13 Last Bowel Movement: 08/13/23 (per patient report) (08/13/231999) Bowel Regimen: Docusate Sodium (Colace) 100 mg BID and Senna 2 tabs BID . Stress Ulcer Prophylaxis: not indicated / RENAL / METABOLIC / FLUIDS: Hyponatremia - improving Trend BMP Global Monitor electrolytes closely and replete as indicated Strict monitoring of fluid intake and output IVF: None INFECTIOUS DISEASES: No acute issues None ENDOCRINE: No acute issues Blood Glucose Monitoring (BGM) Goal: 140 to 180 mg/dL HEMATOLOGIC: Global DVT/VTE Prophylaxis: Subcutaneous Heparin 5,000 units every 8 hours with sequential compression devices (SCDs) MUSCULOSKELETAL / DERMATOLOGIC / P.T / O.T. / MOBILITY: Global Physical & Occupational therapy consulted Encourage early ambulation, out-of-bed as tolerated Frequent turns/position changes and local skin care LINES / DRAINS / TUBES: Peripheral Line Right;Upper Antecubital 18 Gauge (Active) Number of days: 2 Peripheral Line Left;Upper Antecubital 18 Gauge (Active) Number of days: 2 Plan for LDAs: PIV: continue Code Status: Full Code Disposition: transfer to floor Patient was seen and discussed on rounds with Dr. Jackson Briefly, the patient is 63 yo male who fell 10 feet off of a ladder. Sustained SDH, SAH. Overnight, Interval imaging stable Neuro: Keppra per protocol, neuro checks to space out CV: no acute issues Pulm: no acute issues GI/FEN: anode adjuster eval and diet Renal: no acute issues Heme: no acute issues MSK: no acute issues Endo: no acute issues ID: no acute issues PPX: [facility] Dispo: transfer to med surg I have personally provided 35 minutes of critical care time exclusive of time spent on separately billable procedures. Time includes review of laboratory data, radiology results and monitoring for potential decompensation. Interventions were performed as documented above. Upon my evaluation, this patient had a high probability of imminent or life- threatening deterioration due to intracranial hemorrhage, which required my direct attention, intervention, and personal management. Jose Jackson DO Trauma Surgery and Surgical Critical Care * Jose Jackson DO - 08/14/2023 5:45 AM EDT CCM - PROGRESS NOTE [facility] [place] [address] Name: Mikey Neal Location: [facility] [place] G503/A Date: 08/14/2023 Time: 5:45 AM Date of admission: 08/13/2023 Hospital length of stay: 1 days PATIENT DESCRIPTION: 63 year old male with no significant past medical history who presents 2 days after falling off a ladder about 7-10 feet. He was climbing down when he had one foot off the rungs of the ladder resulting in him falling. He landed on his right side trying to break his fall and then striking his head. Witnessed by his who per EMS reported was brief LOC. [place] okay but started to develop worseningdizziness which prompted them to take him to the ED at [facility] today. Did vomit once yesterday while trying to eat. Denies fevers, chills, pain, abd pain, chest pain, extremity pain, numbness, tingling, HOLT. Scanned at [facility] which found SDH, SAH, and cortical contusions. Brought here for further management. Hasn't seen a PCP in decades. Denies significant PMHx, surgical hx. Denies smoking, recreational drugs (did weed many many years back), and ETOH use. PROBLEMS AND INJURY COMPLEX: Mechanical fall from height (7-10 ft) Subdural Hematoma Subarachnoid hemorrhage Intraparenchymal hemorrhage Superficial Scalp Laceration Mild Hyponatremia SUMMARY OF EVENTS: 08/12: Admitted to [facility] [place]. Repeat CT head stable 08/13: Speech consult. Diet started. SQH started. Echo obtained INTERIM HISTORY OVER LAST 24 HRS: Doing well. Alert and oriented. Pain is well controlled. No nausea or vomiting. OBJECTIVE: Vital Signs (Most Recent): Pulse: 49 (08/14/23 0500) BP: 123/76 (08/14/23 0500) Resp: 17 (08/14/23 0500) Temp: 36.8 C (98.2 F) (08/14/23 0400) SpO2: 100 % (08/14/23 0500) Physical Examination: Head: normocephalic, 1.3cm superficial/partial thickness laceration left posterior scalp Eyes: pupils 2 mm, extraocular muscles intact ENT: tympanic membranes bilaterally clear, oropharynx clear Neck: supple, non-tender, trachea midline Respiratory: symmetric chest rise and normal work of breathing Cardiovascular: regular rate and rhythm Abdomen: soft, non-tender, non-distended Musculoskeletal: motor / sensation grossly intact Skin: scattered ecchymosis of all extremities in various stages of healing, left elbow superifical 3cm laceration w scab Neurologic: GCS Adult: eyes open 4 = spontaneous, best verbal response 5 = verbally appropriate forage, best motor response 6 = obeys commands appropriate for age, alert and oriented x3 Laboratory Values: CBC Lab results within last 7 days (see chart for full results) Units 08/13/23 1320 WBC K/uL 12.05* HGB g/dL 14.4 HCT % 40.9 PLT K/uL 310 BMP Lab results within last 7 days (see chart for full results) Units 08/13/23 1320 Sodium mmol/L 132* Potassium mmol/L 3.9 Chloride mmol/L 98 CO2 mmol/L 23 BUN mg/dL 17 Creatinine mg/dL 0.5* Glucose mg/dL 126* Ca, Mg, Phos Lab results within last 7 days (see chart for full results) Units 08/13/23 1320 Calcium mg/dL 8.9 Hepatic Function Panel Lab results within last 7 days (see chart for full results) Units 08/13/23 1320 AST U/L 22 Lipase No results in the last 7 days - inpatent use only Troponins No lab exists selected component "HSTNT" Coags Lab results within last 7 days (see chart for full results) Units 08/13/23 1320 INR 1.0 Lactic acid Lab results within last 7 days (see chart for full results) Units 08/13/23 1320 Lactate mmol/L 1.3 Arterial Blood Gas No results in the last 7 days - inpatent use only Radiographic Studies: CT HEAD/BRAIN WO CONTRAST Result Date: 08/13/2023 IMPRESSION Redemonstrated hemorrhagic contusions, subarachnoid hemorrhage, and trace subdural hematomas, similar to the previous study. XR CHEST 1 VIEW Result Date: 08/13/2023 IMPRESSION: No acute cardiopulmonary disease. Cultures: Recent Cultures (2 Weeks) No lab values to display. Assessment & Plan Principal Problem: Fall from ladder (POA: Unknown) Active Problems: Intracranial bleed (HCC) (POA: Unknown) POA = Present On Admission SYSTEMS BASED PLAN NEUROLOGIC: Subdural Hematoma Subarachnoid Hemorrhage Intraparenchymal Hemorrhage Neurosurgery consulted Q2 neurochecks No further cranial imaging unless clinical neurologic decline SBP<160 Eunatremia/euvolemia/euglycemia Keppra per protocol Hold anticoagulation/antiplatelets Ok for chemical DVT ppx today Ok for diet Keppra 500 mg BID for 7 days Analgesia and Sedation Delirium/Confusion Assessment: Pain: Tylenol 975 mg q6h, Oxycodone 5/10 mg q4h PRN, HEAD / EARS / EYES / NOSE / THROAT: Superficial Scalp Laceration Local wound care PULMONARY / RESPIRATORY: No acute issues Wean to room air Pulmonary Toilet IS, Flutter therapy, RPDP CARDIOVASCULAR: Sinus Bradycardia Obtain EKG and Echo today GASTROINTESTINAL / HEPATOBILIARY: Global Diet: Regular diet after speech consult 08/13 Last Bowel Movement: 08/13/23 (per patient report) (08/13/231999) Bowel Regimen: Docusate Sodium (Colace) 100 mg BID and Senna 2 tabs BID . Stress Ulcer Prophylaxis: not indicated / RENAL / METABOLIC / FLUIDS: Hyponatremia Trend BMP Global Monitor electrolytes closely and replete as indicated Strict monitoring of fluid intake and output IVF: None INFECTIOUS DISEASES: No acute issues None ENDOCRINE: No acute issues Blood Glucose Monitoring (BGM) Goal: 140 to 180 mg/dL HEMATOLOGIC: Global DVT/VTE Prophylaxis: Subcutaneous Heparin 5,000 units every 8 hours with sequential compression devices (SCDs) MUSCULOSKELETAL / DERMATOLOGIC / P.T / O.T. / MOBILITY: Global Physical & Occupational therapy consulted Encourage early ambulation, out-of-bed as tolerated Frequent turns/position changes and local skin care LINES / DRAINS / TUBES: Peripheral Line Right;Upper Antecubital 18 Gauge (Active) Number of days: 1 Peripheral Line Left;Upper Antecubital 18 Gauge (Active) Number of days: 1 Plan for LDAs: PIV: continue Code Status: Full Code Disposition: keep in ICU Patient was seen and discussed on rounds with Dr. Jackson Briefly, the patient is 63 yo male who fell 10 feet off of a ladder. Sustained SDH, SAH. Overnight, Interval imaging stable Neuro: Keppra per protocol, neuro checks CV: follow up TTE Pulm: no acute issues GI/FEN: anode adjuster eval and diet Renal: dc ivf when tolerating diet Heme: no acute issues MSK: no acute issues Endo: no acute issues ID: no acute issues PPX: sqh Dispo: TICU I have personally provided 35 minutes of critical care time exclusive of time spent on separately billable procedures. Time includes review of laboratory data, radiology results and monitoring for potential decompensation. Interventions were performed as documented above. Upon my evaluation, this patient had a high probability of imminent or life- threatening deterioration due to intracranial hemorrhage, which required my direct attention, intervention, and personal management. Jose Jackson DO Trauma Surgery and Surgical Critical Care documented in this encounter H&P Notes * Gato Shaun Concepcion, - 08/14/2023 2:49 PM EDT TRAUMA TERTIARY SURVEY [facility] [place] [address] Name: Mikey Neal Location: [facility] [place] G503/A Date: 08/14/2023 Time: 2:49 PM PHYSICAL EXAM: Head: Posterior scalp laceration, non-bleeding. Mild pain on palpation. Eyes: pupils 2 mm, bilaterally reactive to light, extraocular muscles intact ENT: oropharynx clear Neck: supple, non-tender, trachea midline Respiratory: clear to auscultation bilaterally Cardiovascular: regular rate and rhythm, palpable peripheral pulses present Abdomen: soft, non-tender, non-distended Back: no tenderness across thoracic / lumbar spine Pelvis: non-tender, stable to anterior-posterior/lateral compression Genitourinary: normal male genitalia Musculoskeletal: no palpable long bone deformities, motor / sensation grossly intact Skin: grossly intact Neurologic: GCS Adult: eyes open 4 = spontaneous, best verbal response 5 = verbally appropriate forage, best motor response 6 = obeys commands appropriate for age, alert and oriented x3 UA: negative SUBSTANCE ABUSE: ETOH: negative Substance Screen: positive, Amphetamines, Cannabinoids, Morphine/Codeine CT SCAN: Head - acute findings (SAH, SDH, IPH). Repeat CT scan stable. C-SPINE CLEARANCE: Yes - by exam and imaging RADIOGRAPHS: CXR - no acute injuries MEDICATION RECONCILIATION: done NEW DIAGNOSTIC TESTS ORDERED: none CONSULTS: Neurosurgery, Pharmacy, P.T., O.T., and Speech, Psychology (Trauma) INCIDENTAL FINDINGS: Mucous Retention Cyst I have reviewed the patients controlled substance dispensing history in the Prescription Drug Monitoring Program in compliance with the [facility] regulations before prescribing a controlled substance: no record found in the Prescription Drug Monitoring Program AWARxE database * Trent Chin MD - 08/13/2023 1:03 PM EDT HISTORY AND PHYSICAL EXAMINATION - Trauma Surgery [address] [address] Name: Mikey Neal Location: Date: 08/13/2023 Time: 1:04 PM Date and Time Patient was Seen: 08/13/2023 at 13:10:09 FINAL ADMISSION STATUS: Alert Level 2, time - 1233 Dr. Arango led the Trauma Team in the care of this patient. The following represents documentation of the resuscitation performed by the entire trauma team under the leadership of the physician. There was pre-hospital notification of the case and patient condition. Chief Complaint: Fell off ladder History of Present Illness: 63 year old male with no significant past medical history who presents 2 days after falling off a ladder about 7-10 feet. He was climbing down when he had one foot off the rungs of the ladder resulting in him falling. He landed on his right side trying to break his fall and then striking his head. Witnessed by his who per EMS reported was brief LOC. [place] okay but started to develop worseningdizziness which prompted them to take him to the ED at [facility] today. Did vomit once yesterday while trying to eat. Denies fevers, chills, pain, abd pain, chest pain, extremity pain, numbness, tingling, HOLT. Scanned at [facility] which found SDH, SAH, and cortical contusions. Brought here for further management. Hasn't seen a PCP in decades. Denies significant PMHx, surgical hx. Denies smoking, recreational drugs (did weed many many years back), and ETOH use. MECHANISM OF INJURY: Fall Height of Fall: 7-10ft MODE OF TRANSPORTATION: helicopter LOSS OF CONSCIOUSNESS: yes TETANUS VACCINE: There are no preventive care reminders to display for this patient. Administered in Trauma Comal: no PAST MEDICAL HISTORY: No past medical history on file. PAST SURGICAL HISTORY: Past Surgical History: Procedure Laterality Date EGD-ENDOSCOPIC ULTRASOUND 10/10/2011 UPPER GI ENDOSCOPY ENDOSCOPIC ULTRASOUND performed by DALY BLANCO at [facility], NO INFLAMMATION CURRENT HOSPITAL MEDICATIONS: Note that discontinued and completed medications (per the MAR) continue to display for 24 hours. Ordered medications to be given in the future also display. Current Facility-Administered Medications Medication Dose Route Frequency Provider Acetaminophen (Tylenol) tab 975 mg 975 mg Oral Q6H Huseyin Shetty PA-C bacitracin zinc ointment Topical BID(AM/PM) Tiffany Sims PA-C Docusate Sodium (Colace) cap 100 mg 100 mg Oral BID(AM/PM) Huseyin Shetty PA-C levETIRAcetam (Keppra) 500 mg in 100 mL ivpb *LOCKED DOSE* 500 mg IV Piggyback BID(AM/PM) Huseyin Shetty PA-C NSS infusion Intravenous Continuous Huseyin Shetty PA-C ondansetron ODT (Zofran) tab 4 mg 4 mg On Tongue Q6H PRN Huseyin Shetty PA-C Or ondansetron (Zofran) inj 4 mg 4 mg IV Push Q6H PRN Huseyin Shetty PA-C oxyCODONE (Oxy IR) tab 10 mg 10 mg Oral Q4H PRN Huseyin Shetty PA-C oxyCODONE (Oxy IR) tab 5 mg 5 mg Oral Q4H PRN Huseyin Shetty PA-C senna (Senokot) 2 Tablet 2 Tablet Oral BID(AM/PM) Huseyin Shetty PA-C No current outpatient medications on file. ALLERGIES: Patient has no known allergies. SOCIAL HISTORY: Social History Tobacco Use Smoking status: Former Current packs/day: 0.00 Average packs/day: 1.5 packs/day for 3.0 years (4.5 ttl pk-yrs) Types: Cigarettes Start date: 06/04/1976 Quit date: 06/04/1979 Years since quittin.2 Smokeless tobacco: Not on file Substance Use Topics Alcohol use: Yes Alcohol/week: 5.0 standard drinks of alcohol Types: 6 12 oz of beer per week Drug use: No FAMILY HISTORY: No family history on file. REVIEW OF SYSTEMS: Constitutional: (-) fever chills sweats or weight loss Cardiovascular: (-) negative: no chest pain, dyspnea, syncope, or palpitations Pulmonary: (-) negative: no cough, wheezing, or shortness of breath Abdominal/GI: (-) negative: no pain, heartburn, dysphagia, bleeding, change in bowel habits, nauseaor vomiting Male : unremarkable Skin: (-) negative: no rash or new or changing moles Neurology: (+) nausea Psychiatry: (-) negative: no depression or anxiety See HPI for pertinent positives and negatives, all other systems are negative. COLLARED: yes BACKBOARD: no INTUBATED: no SIZE OF TUBE: N/A DISTANCE AT TEETH/GUMS: N/A PHYSICAL EXAM: Most Recent Vital Signs: BP: 134 mmHg/86 mmHg (08/13/23 1335) Pulse: 65 (08/13/23 1335) Temp: 36.22 C (08/13/23 1310) Temp Summary: Temp Min: 36.2 C (97.2 F) Max: 36.2 C (97.2 F) SpO2: 100 % (08/13/23 1335) O2 flow rate: Supplemental O2 Delivery: Room Air, None (08/13/23 1310) Rhythm: NSR Head: normocephalic, 1.3cm superficial/partial thickness laceration left posterior scalp Eyes: pupils 2 mm, bilaterally reactive to light, extraocular muscles intact ENT: tympanic membranes bilaterally clear, oropharynx clear, dried blood left external ear Neck: supple, non-tender, trachea midline Respiratory: clear to auscultation bilaterally Cardiovascular: regular rate and rhythm, palpable peripheral pulses present, no murmurs auscultated Abdomen: soft, non-tender, non-distended, normal bowel sounds Back: no tenderness across thoracic / lumbar spine Pelvis: non-tender, stable to anterior-posterior/lateral compression Rectal: deferred, no external blood Genitourinary: normal male genitalia Musculoskeletal: no palpable long bone deformities, motor / sensation grossly intact Skin: scattered ecchymosis of all extremities in various stages of healing, left elbow superifical 3cm laceration w scab Neurologic: GCS Adult: eyes open 4 = spontaneous, best verbal response 5 = verbally appropriate forage, best motor response 6 = obeys commands appropriate for age, alert and oriented x3 LABS: Labs reviewed as indicated below: Abnormal Labs Reviewed CBC - Abnormal; Notable for the following components: Result Value WBC 12.05 (*) All other components within normal limits DIFFERENTIAL, AUTOMATED - Abnormal; Notable for the following components: WBC 12.05 (*) Neutrophils % 82.1 (*) Lymphocytes % 11.0 (*) Absolute Neutrophils 9.90 (*) All other components within normal limits IMAGING: No imaging results in the last 3 days CTH 08/13/23 1100am: numerous post traumatic cortical contusions with areas of associated SDH withinthe bilateral cerebral hemispheres with a frontal temporal predominate distribution. Small amount of associated subdural hemorrhage also noted which is most pronounced in the right middle cranial fossa and adjacent to the front lobes. No midline shift. eFAST: negative CONSULTS: 1. NSGY, Time called/notified: 1310, spoke/messaged with suleman love PROCEDURES COMPLETED: none ASSESSMENT: Principal Problem: Fall from ladder (POA: Unknown) Active Problems: Intracranial bleed (HCC) (POA: Unknown) POA = Present On Admission PLAN: SYSTEM BASED PLAN: CRITICAL CARE SYSTEM REVIEW & ASSESSMENT/PLAN: NEURO: SDH, SAH, IPH - keppra 1750mg given at OSH - will cont keppra 500 bid 7 days - repeat CTH at 5pm - pending further NSGY recs Superficial scalp lac - bacitracin to wound BID RESP: No acute respiratory issues CARDIAC / VASCULAR: No acute cardiac issues GI / HEPATOBILIARY: Diet: NPO Except meds RENAL / METABOLIC / FLUIDS: Mild Hyponatremia, asymptomatic - monitor I/Os IVF: NSS @ 75 Daily BMP INFECTIOUS DISEASES: No acute ID issues Leukocytosis, WBC 12.05 on admission - trend CBC - obtain UA ENDOCRINE: No acute endocrinology issues HEMATOLOGIC: No acute heme issues MUSCULOSKELETAL / DERM: No acute issues P.T./O.T. / MOBILITY / WOUND CARE: PT/OT consulted: yes DVT/ STRESS ULCER PROPHYLAXIS: TEDs/SCDs SQH to start tomorrow Dispo: TICU Tertiary: not completed Code Status: full code Patient's decisional capacity: has capacity to make decisions Communication with Patient/Family: discussed patient Goals of Care: improve mental status to baseline and decrease pain and discomfort Patient seen and discussed w Dr Nba Chin MD Associated attestation - Gerardo Arango MD - 08/13/2023 2:50 PM EDT I saw and evaluated the patient today. I have reviewed the trainee note and agree. I have discussed the patient's management with the medical trainee and agree with the note. Please refer to the documented findings and plan of care. The patient's service consisted of an evaluation.I have seen and evaluated the patient. ASSESSMENT: The patient is a 63 yo M who fell two days ago from approximately 10 feet on a ladder and landed onhis right side and struck his head. Per EMS his was present and states that there was a brief loss of consciousness but did not seek medical attention at that time. The patient developed worsening dizziness which prompted him to go to [facility] where he had slater CT scans which showed multi-compartment hemorrhage and he was transferred to [facility] for further management. The patient arrived to the trauma bay with a GCS of 15 and no further complaints and on exam he had a laceration to the left elbow and a scalp laceration, both had formed scabs at this point. Principal Problem: Fall from ladder (POA: Unknown) Active Problems: Intracranial bleed (HCC) (POA: Unknown) POA = Present On Admission PLAN: - Admit to TICU - Neurosurgery consulted - Maxwell per protocol, he received 1750 mg at OSH - Repeat CT 6 hours after initial scan, ~ 5PM - Keep NPO - Hold DVT ppx - PT/OT consult Was critical care rendered? Yes. I have personally provided 50 minutes of critical care time exclusive of time spent on separately billable procedures. Time includes review of laboratory data, radiology results, discussion with consultants, and monitoring for potential decompensation. Interventions were performed as documented above. Upon my evaluation, this patient had a high probability of imminent or life- threatening deterioration due to intracranial hemorrhage, which required my direct attention, intervention, and personal management. Gerardo Arango MD documented in this encounter Procedure Notes * Jak Gan MD - 08/14/2023 3:18 AM EDTAssociated Order(s): EKG REASON FOR STUDY: talya CONCLUSIONS: Marked sinus bradycardia Abnormal ECG No previous ECGs available Ventricular Rate: 43 Atrial Rate: 43 CA Interval: 184 QRS Duration: 106 QT/QTc: 502/424 ms P-R-T Heath: 55 : 20 : 41 degrees documented in this encounter Consult Notes * Chrystal Good, CCC-PEDIATRIC ONCOLOGIST - 08/14/2023 3:54 PM EDT COGNITIVE COMMUNICATION ASSESSMENT - Speech-Language Pathology [address] [address] Name: Mikey Neal Location: [facility] [place] [facility] G503/A Date: 08/14/2023 Time: 3:54 PM Patient Status: Inpatient Insurance: Payor: [employer] ([employer]) / Plan: [employer] BS / Product Type: *No Producttype* / Patient Age: [age] year old Referring Physician: Dr. Arango Admission Date: 08/13/2023 History: Per Epic review 08/14/23, "63 year old male with no significant past medical history who presents 2 days after falling off a ladder about 7-10 feet. He was climbing down when he had one footoff the rungs of the ladder resulting in him falling. He landed on his right side trying to break his fall and then striking his head. Witnessed by his who per EMS reported was brief LOC. [place] okay but started to develop worsening dizziness which prompted them to take him to the ED at [facility] today. Did vomit once yesterday while trying to eat. Denies fevers, chills, pain, abd pain, chestpain, extremity pain, numbness, tingling, HOLT. Scanned at [facility] which found SDH, SAH, and cortical contusions. Brought here for further management. Hasn't seen a PCP in decades. Denies significant PMHx, surgical hx. Denies smoking, recreational drugs (did weed many many years back), and ETOH use." No past medical history on file. Past Surgical History: Procedure Laterality Date EGD, W/ENDOSCOPIC US 10/10/2011 UPPER GI ENDOSCOPY ENDOSCOPIC ULTRASOUND performed by DALY BLANCO at [facility], NO INFLAMMATION IMAGING: CT HEAD/BRAIN 08/13/23: "IMPRESSION Redemonstrated hemorrhagic contusions, subarachnoid hemorrhage, and trace subdural hematomas, similar to the previous study." Educational History: 12th grade Prior Functional Level: Reported by Patient Money Management is done by: Patient Homemaking: independent Shopping: Yes Occupation: Retired, survey rodman Barriers to Learning: Medical Status Hearing Acuity: Deferred, consider audiology exam on inpatient or outpatient basis as needed Best Learning Method: Auditory Patient/Family Goal(s): None stated at this time Pain: No Complaints of Pain RLA Level: VIII Assessment / Diagnosis: Pt presents w/mild cognitive-communication impairment characterized by mild deficits in expressive and receptive language, as well as executive functioning. Pt demonstrated min deficits in confrontation naming w/verbal paraphasias noted. Elicited responsive naming WFL. Stutter-like disfluency noted x1 as well. Mild deficits noted in complex command following. Further receptive deficits as well as mild deficits in organization evident on ordinal reversal tasks, w/decreased self-monitoring observed. Pt demonstrated decreased immediate and delayed recall of novel stimuli, and mild disorientation toplace. Impaired calculation problem-solving for simple finance management tasks. Cognitive-Communication Rehab Potential: Good RECOMMENDATIONS / TREATMENT PLAN: Giwclg-Rgrxwetc-Lpnxausvs-Communication Therapy: Indicated Communication Goals: 1) Pt will name objects and photos w/90% accuracy when provided min verbal cueing. 2) Pt will improve self-monitoring at the word and phrase level as evidenced by attempts to self-correct in 3/5 opportunities when provided mod cueing. 3) Pt will follow complex commands w/in functional tasks in 4/5 opportunities when provided min cueing. 4) Pt will improve recall of relevant novel information (up to 3 units) following 1 min delay when provided min cueing. 5) Pt will orient to all concepts w/100% accuracy when provided min cueing. ANTICIPATED FREQUENCY (ON EVAL): 1-3 times per week PATIENT/FAMILY EDUCATION: Topic(s): Purpose of Cognitive-Communication Assessment Method of Education: Verbal discussion and explanation provided to pt: verbalized understanding andor agreement of this information Additional Recommendations: If pt should d/c from acute setting, recommend continued skilled PEDIATRIC ONCOLOGIST services in appropriate setting. Evaluations Results: Speech-Language Skills AUDITORY COMPREHENSION: Yes/No Questions Within normal limits Body Part Identification Within normal limits Right/Left Discrimination: Within normal limits Commands Simple Within normal limits Complex Impaired Comprehension Words Within normal limits Sentences Within normal limits Paragraphs Did not test Conversation Within normal limits VERBAL EXPRESSION: Naming Responsive Within normal limits Confrontation Impaired Repetition Within normal limits and Did not test Automatic Speech Within normal limits Spontaneous Utterances Words Impaired Sentences Impaired Conversation Did not test Paraphasias/Jargon present Gestures/Augmentative Did not test Perseveration not present READING COMPREHENSION: Oral: Words Within normal limits Sentences Within normal limits Paragraphs Did not test Comprehension Words Within normal limits Sentences Impaired Paragraphs Did not test WRITTEN EXPRESSION: Biographical Information Within normal limits Copying Did not test Spontaneous: Words Within normal limits Sentences Within normal limits Narrative Did not test SPEECH MECHANISM: Oral Motor Within normal limits Speech Intelligibility Within normal limits Dysarthria not present Apraxia Oral not present Verbal not present LEVEL OF ALERTNESS: alert/focused COGNITIVE-COMMUNICATION SKILLS: ATTENTION/CONCENTRATION: Sustained (1:1 environment) Within normal limits Selective with distractions Did not test Alternating between tasks Within normal limits Divided between tasks Did not test MEMORY: Immediate Memory Impaired Short Term Memory: Daily Events/Activities Did not test Novel Information Impaired Delayed memory Impaired Electronics Research Engineer Memory Did not test PROBLEM SOLVING/REASONING: Verbal Problem Solving Did not test Functional Problem Solving: Simple Impaired Complex Did not test Functional Math: Math Calculations Impaired Time Management Within normal limits Money Management Impaired Abstract Reasoning Did not test Deficit Reasoning Did not test Safety Awareness Did not test VISUAL PERCEPTION: Spatial Organization Within normal limits Distribution of Attention Within normal limits Written Organization Within normal limits ORIENTATION: Person Within normal limits Place Impaired Time Within normal limits Situation Within normal limits EXECUTIVE FUNCTIONS: Initiation Within normal limits Organization Impaired Planning/Decision Making Did not test Self Monitoring Impaired Self Correction Impaired BEHAVIORAL OBSERVATIONS NOTED: WNL * Tiffany Mitchell OTR/Adore - 08/14/2023 9:57 AM EDTAssociated Order(s): ADULT OCCUPATIONAL THERAPY CONSULT IP GENERAL EVALUATION - Occupational Therapy [address] [address] Name: Mikey Neal Location: [facility] [place] G503/A Date: 08/14/2023 Time: 956 Mikey Neal is a 63 year old male. Patient Status: Inpatient Insurance: Payor: [employer] [place] ([employer]) Plan: [employer] BS Product Type: *No Product type* Patient Seen: at bedside, nursing cleared patient for therapy Patient Identified By: Name, ID Band and Date Diagnosis: s/p fall from ladder. SDH, SAH, IPH (08/14/23956) Status of treatment: Evaluation completed (08/14/23956) Weight Bearing Status: Weight bearing as tolerated (08/14/23956) Precautions: Alarms;Falls;Safety (08/14/23956) Total Treatment Time: 15 (08/14/23956) Past Medical History: No past medical history on file. Past Surgical History: Past Surgical History: Procedure Laterality Date EGD, W/ENDOSCOPIC US 10/10/2011 UPPER GI ENDOSCOPY ENDOSCOPIC ULTRASOUND performed by DALY BLANCO at [facility], NO INFLAMMATION Social History/Disposition Lives with: Spouse (08/14/23956) Assistance available: Yes (08/14/23956) Dwelling type: Multi-story home (08/14/23956) Entry steps: Other - Describe (7) (08/14/23956) Inside steps: None (08/14/23956) Bedroom location: 1st floor (08/14/23956) Bath location: 1st floor full bath (08/14/23956) Prior Level of Function Reported by: Patient (08/14/23956) Ambulation: Ambulatory without device (08/14/23956) Grooming: Independent (08/14/23956) Bathing: Independent (08/14/23956) Dressing: Independent (08/14/23956) Feeding: Independent (08/14/23956) Toileting: Independent (08/14/23956) Meal Prep: Independent (08/14/23956) Homemaking: Independent (08/14/23956) Shopping: Independent (08/14/23956) Medication Management: Independent (08/14/23956) Money Management: Independent (08/14/23956) Occupation/Leisure Skills: Retired (08/14/23956) Driving: Yes (08/14/23956) Durable Medical Equipment at home: Crutches (08/14/23956) Pain: No complaints of pain Observations Consciousness: Alert (08/14/23956) Orientation: Oriented times 4 (08/14/23956) Cognitive Limitations: (word finding) (08/14/23956) Psychosocial: Patient can communicate basic needs;Patient can converse in a social setting (08/14/23956) Sitting posture: Forward head;Rounded shoulders (08/14/23956) Standing posture: Forward head;Rounded shoulders (08/14/23956) Safety awareness: The Patient verbalizes insight of current deficits.;The Patient demonstrates carryover of insight during functional tasks.;The Patient can communicate basic needs.;Needs cueing supervision. (08/14/23956) Other Findings Endurance: Fair (08/14/23956) Light touch sensation: Intact (08/14/23956) Proprioception: Intact (08/14/23956) Coordination: Intact (08/14/23956) Tone: Normal tone (08/14/23956) Edema: No edema noted (08/14/23956) Current Functional Status: Bilateral Upper Extremity Range of Motion: WFL (08/14/23956) Strength Assessment: (4+/5 throughout) (08/14/23956) Self Care Able to provide self care: Yes (08/14/23956) Feeding: Supervision (Please comment) (08/14/23956) Grooming: Supervision (Please comment) (simulated combing hair) (08/14/23956) Dressing Upper Body: Supervision (Please comment) (gown) (08/14/23956) Lower Body: Supervision (Please comment) (bilateral socks) (08/14/23956) Functional Ambulation Assistive Device: No device (08/14/23956) Distance in feet:: 0 (stand pivot) (08/14/23956) Level of Assistance: Contact Guard (08/14/23956) Bed Mobility Supine-Sit: Supervision (Please comment) (08/14/23956) OT Transfers Sit-Stand: Contact Guard (08/14/23956) Stand-Sit: Contact Guard (08/14/23956) Bed-Chair: Contact Guard (08/14/23956) Balance Sit (Static): Fair (08/14/23956) Sit (Dynamic): (fair-) (08/14/23956) Stand (Static): (poor-) (08/14/23956) Stand (Dynamic): (poor-) (08/14/23956) Alarm Status Patient positioned in: Chair (08/14/23956) With: Pressure pad alarm intact and functioning and call stewart in reach (08/14/23956) Following session patient seated OOB in chair with chair alarm activated and cord plugged into callbell system. Patient and Family Goals: to return home Patient Education Education Topic: Role of OT;Plan of care goals (08/14/23956) Review of Precautions: Fall;Safety (08/14/23956) Education Provided to: Patient (08/14/23956) Response to Education: Receptive and agreeable to education (08/14/23956) Barriers to learning: Medical status (08/14/23956) Preferred learning method: Combination (08/14/23956) Treatment Provided: Evaluation Moderate Complexity 15 minutes - 26069: Patient was cooperative and alert during treatment session. Moderate complexity evaluation performed and 3-5 activity limitations were identified, including ADL deficit, functional mobility deficit, bed mobility deficit, cognitive deficit, decreased strength, decreased endurance, and impaired balance. Minimal or moderate modification of the functional task was necessary to complete the evaluation. Deficits Requiring O.T. Treatment: Deficits requiring O.T. treatment needs: ADL/self-care;Balance;Endurance;Functional cognition;Functional mobility;Upper extremity strength;Safety (08/14/23956) Goals: Increase Strength of: increase 1/2 grade, Demonstrates sitting Balance at: modified independent, Demonstrates standing Balance at: modified independent, Demonstrates self care at: Grooming at Modified Independent , Bathing upper body at Modified Independent , Bathing lower body at Modified In dependent , Upper body dressing at Modified Independent , Lower body dressing at Modified Independent and Toileting at Modified Independent , Demonstrates Activity Tolerance at 40/45 minutes, Demonstrates Bed Mobility with: Supine to Sit: Modified Independent and Sit to Supine: Modified Independent, Demonstrates Transfers with: Sit to Stand: Modified Independent (100% with device/additional time) Stand to Sit: Modified Independent (100% with device/additional time) Bed to Chair/Wheelchair: Modified Independent (100% with device/additional time) Toilet: Modified Independent (100% with device/additional time) , Demonstrates Functional Ambulation: Assistive Device: least restrictive device and Level of Assistance: Modified Independent and Increase safety with transfers, ambulation and self care Goal Time Frame: 10 visits Assessment: Patient is a 63 year old male admitted s/p fall from ladder and presents with minor deficits in all areas of care and mobility due to decreased strength, balance, activity tolerance, cognition, safety and overall medical condition. Oriented but confused at times and having word finding difficulties, changing out words (stating he has 2 houses when indicating he has crutches as well asstating he had one store instead of stair). Verbalized he had increased dizziness when laying stillin bed and it increased once in sitting position. Consistently following all commands without difficulty and was able to sit up and complete UE and LE self care tasks with supervision after setup. Decreased balance during dynamic sitting activities with a right lateral loss of balance when donning socks. Stood and pivoted to bedside chair with contact guard and declined further ambulation due to the dizziness. Would benefit from continued OT treatment to maximize level of functional independence. Please consider post- acute care services which may include home health, retirement, outpatient therapy or inpatient rehabilitation. The level of care will be determined in collaboration with patient, family/caregiver and care team members. . May benefit from use of rolling walker Treatment Plan: Functional Cognition, Energy Conservation, Safety, Bed mobility training, Functional Ambulation, Transfer training, Upper extremity strengthening, Balance activities: , ADL training ,and Endurance Anticipated Frequency (on eval): 3 to 5 times per week (08/14/23956) Equipment Needs Equipment needs: Rolling walker (08/14/23956) AM-PAC Help From Another Person Eating Meals: A little (08/14/23956) Help From Another Person Taking Care of Personal Grooming: A little (08/14/23956) Help From Another Person To Put On/Take Off Upper Body Clothing: A little (08/14/23956) Help From Another Person To Put On/Take Off Lower Body Clothing: A little (08/14/23956) Help From Another Person Toileting: A little (08/14/23956) Help From Another Person Bathing: A little (08/14/23956) OT AM-PAC Score: 18 (08/14/23956) OT AM-PAC t-Scale Score: 38.66 (08/14/23956) HLM (Highest Level of Mobility) Goal: Level 8 walk 250 feet or more (08/14/23 1200) A portion of this AM-PAC assessment not scored based on functional assessment ; rather clinical decision making utilized based on current findings and/or prior level of function. Please refer to future AM-PAC calculations of functional ability as they become available. Tiffany Mitchell MS OTR/L Occupational Therapy [facility] 08/14/2023 2:06 PM * Boy Bruce, PEDIATRIC ONCOLOGIST - 08/14/2023 9:48 AM EDTAssociated Order(s): ADULT SPEECH THERAPY CONSULT IP (ACUTE CARE REHAB) CLINICAL BEDSIDE SWALLOW EVALUATION - Speech-Language Pathology [address] [address] Name: Mikey Neal Location: [facility] [place] G503/A Date: 08/14/2023 Time: 9:48 AM Patient Status: Inpatient Insurance: Payor: [employer] [place] - [place] ([employer]) / Plan: [facility] BS / Product Type: *No Producttype* / GENERAL INFORMATION: Admission Date: 08/13/2023 Referring Physician: Dr. Arango Pertinent Medical History: Per Epic: Mikey Neal is a 63 year old male who presents to the ED for evaluation of Trauma and Fall. The patient was seen at 08/13/23 1300. Patient is a 63-year-old male presenting to the ER as a level 2 Trauma Alert from [facility] after falling off a ladder approximately 7-10 feet, 2 days ago as he was climbing down and his foot came off one of the rungs of theTeachbase. Patient landed on his right side and hit his head on the ground. Patient did have positive loss of consciousness witnessed by his . Patient noted to have dizziness and presented to [facility] today where he was found to have SDH, SAH, and cortical contusions. Patient transferred to [facility] [place] [facility] for Trauma Team and Neurosurgery evaluation. Denies fever, chills, chest pain, abdominal pain, numbness and tingling. Current Diet/Dysphagia History: NPO. Prior to hospitalization was on a regular diet with thin liquids. Cognitive-Communication: Did not test. Alert and oriented x4. Able to provide history Barriers to Learning: None Hearing Acuity: Within functional limits Best Learning Method: Auditory Pain: No complaints of pain ORAL MECHANISM EXAM: Facial Symmetry Within functional limits Labial Function Within functional limits Lingual Function Within functional limits Velar Function Within functional limits Dentition: Natural PROTECTIVE MECHANISMS: Volitional Swallow Within Functional Limits Volitional Throat Clearing Within Functional Limits Volitional Cough Within Functional Limits Vocal Quality Within Functional Limits Tracheostomy Tube: Not Present Ventilator Status: Not Applicable SWALLOWING FUNCTION: The following consistencies were evaluated: ice chips, thins via cup and straw. Puree, Soft solids,regular solids ORAL PREPARATION PHASE: Able to take appropriate bite from solids, strip bolus of puree from utensil. Form adequate seal with lips around rim of cup and straw. ORAL PHASE: Timely and functional mastication and oral manipulation skills. PHARYNGEAL PHASE: Timely and functional no overt s/s of aspiration RECOMMENDATIONS/PLAN: Videofluoroscopy: Not indicated Diet Level: Regular Liquid Level: Thin Presentation of Medication: As tolerated Positioning: Seated with 90 hip flexion Level of Supervision: intermittent Use of Straws: allowed Compensatory Techniques to be Utilized During PO Intake: Small Bites/Sips, Slow Rate of Intake, andseated upright Compensatory Strategies Utilized: Small bites and slow rate Additional findings: n/a ANTICIPATED FREQUENCY (ON EVAL): Not warranted at this time DIAGNOSIS/IMPRESSIONS: Diagnosis/Impressions: Patient with overall functional oropharyngeal swallow. Appropriate mastication and manipulation of consistencies. Appears to achieve adequate airway closure as no overt s/s of aspiration were noted. No complaints of pharyngeal or esophageal stasis during or following the bedside evaluation. At this time patient appears appropriate for a regular diet with thin liquids with recommendations to be seated upright, eat slow, small bites. No further dysphagia therapy recommendedat this time. Rehab Potential: Good TREATMENT PLAN: Swallowing Treatment: Not Indicated Treatment Goals: n/a Additional Recommendations: n/a The above information was discussed with the patient/family. Yes The patient/family was in Agreement Boy Bruce M.S. [facility]-PEDIATRIC ONCOLOGIST * Estela Miller, PT - 08/14/2023 9:46 AM EDTAssociated Order(s): ADULT PHYSICAL THERAPY CONSULT IP GENERAL EVALUATION - Physical Therapy [address] [address] Name: Mikey Neal Location: [facility] [place] G503/A Date: 08/14/2023 Time: 945 Mikey Neal is a/an 63 year old male. Patient Status: Inpatient Insurance: Payor: [employer]) Plan: [employer] Product Type: *No Product type* Patient Seen: at bedside, nursing cleared patient for therapy Patient Identified By: Name, ID Band and Date Diagnosis: s/p fall from ladder (08/14/23945) Status of treatment: Evaluation completed (08/14/23945) Orders: PT evaluation and treatment;OOB (08/14/23945) Weight Bearing Status: Weight bearing as tolerated (08/14/23945) Precautions: Alarms;Falls;Safety (08/14/23945) Total Treatment Time--free text: 9 (08/14/23945) Past Medical History: No past medical history on file. Past Surgical History: Past Surgical History: Procedure Laterality Date EGD, W/ENDOSCOPIC US 10/10/2011 UPPER GI ENDOSCOPY ENDOSCOPIC ULTRASOUND performed by DALY BLANCO at [facility], NO INFLAMMATION Subjective: Patient resting in bed, agrees to PT evaluation Social History/Disposition Lives with: Spouse (08/14/23956) Assistance available: Yes (08/14/23956) Dwelling type: Multi-story home (08/14/23956) Entry steps: Other - Describe (7) (08/14/23956) Inside steps: None (08/14/23956) Bedroom location: 1st floor (08/14/23956) Bath location: 1st floor full bath (08/14/23956) Prior Level of Function Reported by: Patient (08/14/23945) Ambulation: Ambulatory without device (08/14/23945) Devices at home: Crutches (08/14/23945) Observations Consciousness: Alert (08/14/23945) Orientation: Oriented times 4 (08/14/23945) Psychosocial: Patient can communicate basic needs (08/14/23945) Other Findings: Yes (08/14/23945) Findings: Light touch sensation (08/14/23945) Light Touch Sensation Results: Intact;LLE;RLE (08/14/23945) Sitting Posture: Forward head;Rounded shoulders (08/14/23945) Standing Posture: Forward head;Rounded shoulders;Right lateral lean (08/14/23945) Pain: No complaints of pain Range of Motion Range of Motion: WFL (08/14/23945) Strength Assessment Strength Assessment: Deficits noted (08/14/23945) WNL, except: LLE;RLE (08/14/23945) LLE: 4+/5 (08/14/23945) RLE: 4+/5 (08/14/23945) P.T. Bed Mobility Supine-Sit: Supervision (08/14/23945) Transfers Sit-Stand: Contact Guard (08/14/23945) Stand-Sit: Contact Guard (08/14/23945) W/C-Bed/Mat: Contact Guard (stand pivot to chair; no device) (08/14/23945) Balance Sit (Static): Fair (08/14/23945) Sit (Dynamic): Fair (-) (08/14/23945) Stand (Static): Fair (-) (08/14/23945) Stand (Dynamic): Fair (-) (08/14/23945) Patient and or Family Goal(s): to get well and to return home Patient Education Review of Precautions: Safety;Fall (role of PT) (08/14/23945) Safety Awareness: Patient verbalizes insight of current deficits (08/14/23945) Preferred learning method: Combination (08/14/23945) Barriers to learning: Medical Status (08/14/23945) Method of Education: Verbalized to patient (08/14/23945) Topic of Education: Safety with mobility, Goals/plan of care, and Fall prevention Method of Education: Verbal discussion and explanation provided to patient: verbalized understanding and or agreement of this information Treatment Provided: Evaluation Moderate Complexity 9 minutes - 84323: Patient was cooperative and pleasant during treatment session. Moderate complexity evaluation performed and 1-2 personal factors or comorbidities were identified that will impact plan of care, including ICU status. Patient presents with limitations in strength, bed mobility, transfers, gait, elevations, balance, endurance, and safety, which will impact plan of care. These limitations will be addressed by the goals set for this patient. Alarm Status Patient positioned in: Chair (08/14/23945) With: Pressure pad alarm intact and functioning and call stewart in reach (08/14/23945) Following session patient seated OOB in chair with chair alarm activated and cord plugged into callbell system. Treatment Status: Treatment at bedside (08/14/23945) Goals: Demonstrate Bed Mobility with: Sit to supine: modified independent Supine to sit:modified independent Demonstrate transfers with: Sit to stand: modified independent Stand to sit: modified independent Bed to chair: modified independent with least restrictive device Chair to bed: modified independent with least restrictive device Demonstrate ambulation: distance: 250 feet with assistive device: least restrictive device and level of assistance: modified independent Demonstrate Stair climbing (when appropriate): number of stairs: 7 with level of assistance: modified independent Increase Strength: to 5/5 BLE Increase Balance: fair+ sitting / fair+ standing Increase safety: with all functional mobility Time Frame: 10 visits Assessment: Patient is 63 y/o male with dx s/p fall from ladder. Prior to admission, patient lives with spouse and was independent with mobility with no device. Patient currently requires supervisionfor supine to sit. Contact guard for sit<>stand and pivot to chair with no device. Patient reaches for chair and defers ambulation due to dizziness. Ended session with patient resting comfortably in chair. Patient has word-finding issues during session, team made aware. Patient's mobility is limited by decreased LE strength, decreased balance, overall medical status, and decreased activity tolerance. Patient would benefit from continued PT to maximize functional independence. Please consider post-acute care services which may include home health, retirement, outpatient therapy or inpatient rehabilitation. The level of care will be determined in collaboration with patient, family/caregiver and care team members. Deficits requiring P.T. treatment needs: Safety;Mobility;Balance;Weakness;Endurance;Lower extremitystrength (08/14/23945) Equipment Needs: Equipment needs: (tbd) (08/14/23945) Treatment Plan: Bed mobility training, Transfer training, Gait training, Elevation training, Strengthening exercises: BLE, Balance activities, and Educate on safety with functional mobility Anticipated Frequency (on eval): 3 to 5 times per week (08/14/23945) AM PAC Score with Stairs: 17 A portion of this AM-PAC assessment not scored based on functional assessment; rather clinical decision making utilized based on current findings and/or prior level of function. Please refer to future AM-PAC calculations of functional ability as they become available. documented in this encounter Nursing Notes * Zahida Arnold RN - 08/15/2023 4:31 PM EDT Dual Licensed Skin Assessment completed by Zahida Wiseman RN and Yelena Wiseman RN. The patient is/has a N/A Skin Breakdown (includes non blanchable erythema): Yes. Wound Type: Skin tear, location posterior scalp Wound Ostomy Nurse Notified: No - wound ostomy not needed at this time Nursing interventions: antibiotic ointment as scheduled, pillows * Uvaldo Santamaria RN - 08/13/2023 3:11 PM EDT Dual Licensed Skin Assessment completed by Uvaldo Avitia RN and Melody Henry RN. The patient is/has a N/A Skin Breakdown (includes non blanchable erythema): Yes. Wound Type: Other, location Scattered ecchymosis and abrasions on RUE, Laceration L elbow, Laceration posteriorscalp Wound Ostomy Nurse Notified: No - wound ostomy not needed at this time Nursing interventions: turn and repo Q2 * Catia Riggins RN - 08/13/2023 1:21 PM EDT Pt presents to [facility] via EMS as a level 2 trauma transfer from [facility]. Per EMS, pt was working up on a ladder this past Sunday, when he fell 7-10 feet onto the back of his head. Pt's didwitness the fall and said that pt did have a positive LOC. Pt had increasing dizziness over the past two days. When at [facility], it was found that pt has some bleeding in the brain. Pt initially arrived in a cervical collar, but it was just removed by Tiffany Sims PA-C. Pt currently A&Ox4. documented in this encounter ED Notes * Yuniel Mohan MD - 08/13/2023 1:21 PM EDT HISTORY OF PRESENT ILLNESS Mikey Neal is a 63 year old male who presents to the ED for evaluation of Trauma and Fall. The patient was seen at 08/13/23 1300. Patient is a 63-year-old male presenting to the ER as a level 2 Trauma Alert from [facility] after falling off a ladder approximately 7-10 feet, 2 days ago as he was climbing down and his foot came off one of the rungs of the ladder. Patient landed on his right side and hit his head on the ground. Patient did have positive loss of consciousness witnessed by his . Patient noted to have dizziness and presented to [facility] today where he was found to have SDH, SAH, and cortical contusions. Patient transferred to [facility] for Trauma Team and Neurosurgery evaluation. Denies fever, chills, chest pain, abdominal pain, numbness and tingling. Review of Systems Constitutional: Negative for chills and fever. HENT: Negative for nosebleeds and sneezing. Eyes: Negative for visual disturbance. Respiratory: Negative for stridor. Gastrointestinal: Negative for abdominal distention. Genitourinary: Negative for hematuria. Musculoskeletal: Negative for neck stiffness. Skin: Negative for rash. Neurological: Negative for seizures. Psychiatric/Behavioral: Negative for agitation and confusion. The patient's allergies, past history, and medications were reviewed. PHYSICAL EXAM Initial Vitals (see all): BP 156/94 | Pulse 63 | Resp 14 | Temp 97.2 | O2 99 %, Room Air, None | Weight 75.5 kg | Height 185.4 cm | BMI 21.96 kg/m2 Initial Pain Assessment (see all): 4 (moderate pain)/10, Unable to verbalize, location: left head ([facility] Adult Scale 0-10) Physical Exam Vitals and nursing note reviewed. Constitutional: General: He is in acute distress. Appearance: Normal appearance. He is not ill-appearing. HENT: Head: Normocephalic. Comments: Dried blood on scalp and bilateral ears Right Ear: External ear normal. Left Ear: External ear normal. Ears: Comments: No del valle sign Nose: Nose normal. Comments: No septal hematoma Mouth/Throat: Mouth: Mucous membranes are moist. Pharynx: Oropharynx is clear. No oropharyngeal exudate or posterior oropharyngeal erythema. Eyes: General: No scleral icterus. Extraocular Movements: Extraocular movements intact. Conjunctiva/sclera: Conjunctivae normal. Pupils: Pupils are equal, round, and reactive to light. Comments: No raccoon eyes Neck: Comments: C-Collar in place Cardiovascular: Rate and Rhythm: Normal rate and regular rhythm. Pulses: Normal pulses. Heart sounds: Normal heart sounds. Pulmonary: Effort: Pulmonary effort is normal. No respiratory distress. Breath sounds: Normal breath sounds. Abdominal: General: Abdomen is flat. Bowel sounds are normal. There is no distension. Palpations: Abdomen is soft. Tenderness: There is no abdominal tenderness. There is no guarding or rebound. Musculoskeletal: General: Normal range of motion. Cervical back: Normal range of motion and neck supple. Right lower leg: No edema. Left lower leg: No edema. Comments: No midline T or L-spine tenderness to palpation. Pelvis is stable. Skin: General: Skin is warm and dry. Capillary Refill: Capillary refill takes less than 2 seconds. Neurological: General: No focal deficit present. Mental Status: He is alert. Mental status is at baseline. Psychiatric: Mood and Affect: Mood normal. Behavior: Behavior normal. Thought Content: Thought content normal. Judgment: Judgment normal. PROCEDURES AND TREATMENTS ED Orders | ED Results MEDICAL DECISION MAKING Nursing notes and vital signs were reviewed. ED consults were placed. Differential Diagnoses Based on my history, physical exam, and evaluation, the differential includes, but is not limited, to the following diagnoses: Closed head injury, intracranial bleed, C-spine injury, intrathoracic injury, intra-abdominal injury, pelvic injury, neurovascular injury, fracture, dislocation, acute blood loss anemia. This is a 63 year-old M presenting to the ED via as a Level 2 Trauma alert after fall off ladder. Pt was brought to the resuscitation room by EMS. The history was concerning for multi-system trauma. Airway intact and breathing adequate. Initial circulation assessment was unremarkable. Physical examination performed as noted above. Pt was removed from the spineboard with in-line stabilization technique and patient's back examined. Rectal exam performed by Trauma. US performed and did not show any evidence of intraabdominal free fluid. Additional treatments provided by Trauma service (see separate note). Patient had CT scans from outside hospital. Admitted to the trauma service for further work up and management. Amount and/or Complexity of Data Reviewed Labs: ordered. Risk Decision regarding hospitalization. Clinical Impressions Trauma SDH (subdural hematoma) (HCC) SAH (subarachnoid hemorrhage) (HCC) Closed head injury, initial encounter Disposition Admitted. I discussed the management of this patient with the admitting provider and I made a decision to admit the patient. Admission Order Ordered Status . 08/13/23 1324 Admit for Inpatient Services (incl ZPO) ONCE Completed Yuniel Mohan was the attending physician who supervised the care of this patient. Kayy Lugo DO ATTENDING ATTESTATION I have seen and examined this patient on the 08/13/2023 visit. I have discussed the patient's management with the provider listed above and agree with the note, findings, and plan of care. documented in this encounter Miscellaneous Notes * Ancillary Progress Note - Katalina Brice MSW - 08/16/2023 2:30 PM EDT CARE MANAGEMENT - TRAUMA DISCHARGE NOTE [facility] [address] Name: Mikey PATTERSONN: [id number] Location: [facility] H656/[id number] Date: 08/16/2023 Time: 2:30 PM The following coordination of care and discharge plan has been coordinated with the care team, patient, family and/or caregiver according to the patients needs and preferences. Discharge Discharge Second Notice Important Message from Medicare delivered: Not Applicable (08/16/231427) Was Caregiver/Family/Facility contacted regarding discharge: Yes (08/16/231427) Discharge Transportation: Family/Friends drive (08/16/231427) Date of scheduled discharge transportation: 08/16/23 (08/16/231427) Patient declined post-hospital transition of care recommendation: Snf Facility (08/16/231427) Final Discharge Plan (Complete only at time of Discharge): Home - Self Care (08/16/231429) Narrative: Per service, patient is medically ready for discharge. SW spoke to patients spouse to report that patient wants to return home, she is agreeable to transport him home this afternoon. Patient and spouse agreeable to HH, with no preference. However, patient does not have PCP. Patient unlikely to have HH agency accept without active PCP. SW called and suggested OP PT/OT. Spouse reports that [facility] will usually accept him under a PCP after a hospital discharge, she plans to call to secure PCP once discharged and then set up HH. All parties aware and agreeable to plan. * Ancillary Progress Note - Katalina Brice MSW - 08/16/2023 10:48 AM EDT HOME HEALTH/HOSPICE REFERRAL FORM CARE MANAGEMENT [address] [place] [address] Referred By: YAZAN Starr Admission Date: 08/13/2023 Discharge Date: 08/16/23 Discharge Time: midday Start Date: TBD Agency Referred To: PATIENT INFORMATION: Name: Mikey Neal [address]: [address] [place] [id number] : 1960 (home) SSN: [id number] County: [place] Emergency Contacts: Extended Emergency Contact Information Primary Emergency Contact: Estela Neal [address]: [address] [place] [address] [place] [id number] [facility] Relation: Spouse Secondary Emergency Contact: Robyn Neal Mobile Relation: Adult Child MEDICAL INFORMATION: Principal Diagnosis: Fall from ladder Other Diagnosis: See attached History and Physical Surgery and Dates: Past Surgical History: Procedure Laterality Date EGD, W/ENDOSCOPIC US 10/10/2011 UPPER GI ENDOSCOPY ENDOSCOPIC ULTRASOUND performed by DALY BLANCO at [facility], NO INFLAMMATION Diet: Adults: As tolerated Allergies: Patient has no known allergies. Isolation Type: None Activity Restrictions: Activity as tolerated Isolation For: None HOME CARE ORDERS: (Discipline and Frequency): Overall health assessment and vital signs Medication management and teaching Disease management and teaching Home safety evaluation Assess for services PT/OT evaluation as indicated Labwork as indicated Medications Dose, Frequency, & Route: Refer to Physician's Discharge Instructions Equipment and Supplies: N/A Ordering Physician and Contact Information: Gerardo Arango MD Comments: lives with spouse PCP: PCP: None D/C Physician: Gerardo Arango MD Insurance: See attached facesheet. * Ancillary Progress Note - Christen Madrid COTA/Adore - 08/16/2023 10:05 AM EDT PROGRESS NOTE - Occupational Therapy [address] [address] Name: Mikey Neal Location: [facility] H656/A Date: 08/16/2023 Time: 10:58 AM Mikey Neal is a 63 year old male. Patient Status: Inpatient Insurance: Payor: BLUE SHIELD - [place] ([employer]) Plan: SELECT BLUE [place] BS Product Type: *No Product type* Patient Identified By: Name, ID Band and Date Diagnosis: s/p fall from ladder. SDH, SAH, IPH (08/16/231004) Status of treatment: Treatment completed (08/16/231004) Orders: OT evaluation and treatment;OT OOB (08/16/231004) Weight Bearing Status: Weight bearing as tolerated (08/16/231004) Precautions: Alarms;Falls;Safety (08/16/231004) Total Treatment Time: 23 (08/16/231004) Pain: No complaints of pain Observations Consciousness: Alert (08/16/231004) Orientation: Oriented times 4 (08/16/231004) Cognitive Limitations: (word finding) (08/14/23956) Psychosocial: Patient can communicate basic needs;Patient can converse in a social setting (08/16/231004) Sitting posture: Forward head;Rounded shoulders (08/16/231004) Standing posture: Forward head;Rounded shoulders (08/16/231004) Safety awareness: The Patient verbalizes insight of current deficits.;The Patient demonstrates carryover of insight during functional tasks.;The Patient can communicate basic needs.;Needs cueing supervision. (08/16/231004) Other Findings Endurance: Fair (08/14/23956) Light touch sensation: Intact (08/14/23956) Proprioception: Intact (08/14/23956) Coordination: Intact (08/14/23956) Tone: Normal tone (08/14/23956) Edema: No edema noted (08/14/23956) Current Functional Status: Activities of Daily Living: Self Care Able to provide self care: Yes (08/16/231004) Dressing Upper Body: Supervision (Please comment) (for gown) (08/16/231004) Lower Body: Supervision (Please comment) (for pants mild unsteadness in standing) (08/16/231004) Functional Ambulation Assistive Device: Rolling walker (08/16/231004) Distance in feet:: 150 (x2) (08/16/231004) Level of Assistance: Contact Guard (to Min A for an occasional LOB) (08/16/231004) Bed Mobility Supine-Sit: Supervision (Please comment) (08/16/231004) OT Transfers Sit-Stand: Supervision (Please comment) (08/16/231004) Stand-Sit: Supervision (Please comment) (08/16/231004) Toilet: Supervision (Please comment) (08/16/231004) Balance Sit (Static): Fair (08/16/231004) Sit (Dynamic): Fair (08/16/231004) Stand (Static): Fair (-) (08/16/231004) Stand (Dynamic): Fair (- to Poor +) (08/16/231004) Patient Education Education Topic: Role of OT;Plan of care goals (08/16/231004) Review of Precautions: Fall;Safety (08/16/231004) Method of Education: Verbalized to patient (08/16/231004) Education Provided to: Patient (08/16/231004) Response to Education: Receptive and agreeable to education;Needs further education (08/16/231004) Barriers to learning: Medical status (08/16/231004) Preferred learning method: Combination (08/16/231004) Alarm Status Patient positioned in: Bed (08/16/231004) With: Bed alarm intact and functioning and call stewart in reach (08/16/231004) Treatment Provided: Self [facility] Management Trainin minutes Therapeutic Activity: 13 minutes Deficits requiring O.T. treatment needs: ADL/self- care;Balance;Endurance;Functional cognition;Functional mobility;Upper extremity strength;Safety (08/16/231004) Assessment: Patient in bed upon arrival. Patient performed bed mobility supervision. Patient performed sit<>stand from bed, chair and toilet supervision, cues for hand placement. Patient performed functional mobility in room and hallway using rolling walker contact guard to occasional Min A with LOB due to unsteadiness, cues for walker use, safety awareness and posture. Patient educated on how to use walker properly/safely to assist with balance especially with dizziness. Patient completed ADL's at the above levels, mild unsteadiness in stance when pulling up pants. Tolerated session fair, impacted by decreased endurance, fatigue, balance deficits, dizziness and overall weakness. Please consider post-acute care services which may include home health, retirement, outpatient therapy or inpatient rehabilitation. The level of care will be determined in collaboration with patient,family/caregiver and care team members. Plan: Continue with plan of care. Anticipated Frequency (on eval): 3 to 5 times per week (08/14/23956) Equipment Equipment used in Therapy: Rolling walker (08/16/231004) Equipment Needs Equipment needs: Rolling walker (08/14/23956) AM-PAC Help From Another Person Eating Meals: None (08/16/231004) Help From Another Person Taking Care of Personal Grooming: None (08/16/231004) Help From Another Person To Put On/Take Off Upper Body Clothing: A little (08/16/231004) Help From Another Person To Put On/Take Off Lower Body Clothing: A little (08/16/231004) Help From Another Person Toileting: A little (08/16/231004) Help From Another Person Bathing: A little (08/16/231004) OT AM-PAC Score: 20 (08/16/231004) OT AM-PAC t-Scale Score: 42.03 (08/16/231004) HLM (Highest Level of Mobility) Goal: Level 5 standing (1 or more minutes) (08/15/23 1626) A portion of this AM-PAC assessment not scored based on functional assessment , rather clinical decision making utilized based on current findings and/or prior level of function. Please refer to future AM-PAC calculations of functional ability as they become available. * Care Plan - Nick Huizar RN - 08/16/2023 4:26 AM EDT Clinical Goal(s): patient will have pain relief (08/16/23 0400) Possible barriers to meeting goal(s)/advancing plan of care: Increased or uncontrolled pain Stability of the patient: Moderately unstable - medium risk of patient condition declining or worsening Summary regarding today's goal(s): Met: Recommendations: Medicate PRN * Care Plan - Zahida Arnold RN - 08/15/2023 6:19 PM EDT Problem: Actual & Potential for Falls Goal: Patient will remain free of falls. Outcome: Progressing Problem: Pain & Impaired Comfort Goal: Patient's pain & discomfort is manageable. Outcome: Progressing Problem: Safety & Risk for Injury Goal: Patient will remain free from injury. Outcome: Progressing Problem: Risk for Impaired Physical Mobility Goal: Patient will maintain optimal mobility level. Outcome: Progressing Problem: Potential for Impaired Physical Mobility Goal: Patient will maintain optimal mobility level. Outcome: Progressing Clinical Goal(s): Patient will remain free from falls this shift (08/15/23 1626) Possible barriers to meeting goal(s)/advancing plan of care: weakness, pain, recent hx falls Stability of the patient: Moderately stable - low risk of patient condition declining or worsening Summary regarding today's goal(s): Met: patient remained free from falls this shift Recommendations: continue fall precautions, manage pain, assist patient as needed * Ancillary Progress Note - Aleena Timmons RN - 08/15/2023 2:36 PM EDT Discussed in rounds with team. Patient stable for d/c but has not cleared PT and is still dizzy andget nystagmus with mvmt. Balance center referral placed, SW updated on POC. Awaiting updated therapy notes since pt only got OOB yesterday. Aleena Timmons RN, BSN, TCRN, CCRN-K Trauma Extractor Tender [employer] [facility] 08/15/2023 2:37 PM * Ancillary Progress Note - Maci Friend PTA - 08/15/2023 11:07 AM EDT PROGRESS NOTE - Physical Therapy [facility] [address] Name: Mikey Neal Location: [facility] G503/[id number] Date: 08/15/2023 Time: 11:07 AM Mikey Neal is a/an 63 year old male. Patient Status: Inpatient Insurance: Payor: BLUE SHIELD - [place] ([employer]) Plan: [employer] [place] Product Type: *No Product type* Patient Identified By: Name, ID Band and Date Diagnosis: s/p fall from ladder (08/15/231106) Status of treatment: Treatment completed (08/15/231106) Orders: PT evaluation and treatment;OOB (08/15/231106) Weight Bearing Status: Weight bearing as tolerated (08/15/231106) Precautions: Alarms;Falls;Safety (08/15/231106) Total Treatment Time--free text: 17 (08/15/231106) Treatment Provided: Gait Training 17 minutes: gait training with rolling walker Pain: No complaints of pain P.T. Bed Mobility Supine-Sit: Supervision (08/15/231106) Transfers Sit-Stand: Contact Guard (08/15/231106) Stand-Sit: Contact Guard (08/15/231106) Ambulation: Distance ambulated (feet): 90 Assistive Device: Rolling walker Assist: Contact Guard to minimal assist Noted gait deviations: imbalanced, impulsive (08/15/231106) Balance Sit (Static): Fair (08/15/231106) Sit (Dynamic): Fair (08/15/231106) Stand (Static): (fair -) (08/15/231106) Stand (Dynamic): (fair - to poor +) (08/15/231106) Topic of Education: Safety with mobility, Goals/plan of care, Use of assistive device, and Fall prevention Method of Education: Verbal discussion and explanation provided to pt: Alarm Status Patient positioned in: Chair (08/15/231106) With: Pressure pad alarm intact and functioning and call stewart in reach (08/15/231106) Following session patient seated OOB in chair with chair alarm activated and cord plugged into callbell system. Patient Education Review of Precautions: Safety;Fall (08/15/231106) Safety Awareness: Patient verbalizes insight of current deficits (08/15/231106) Assessment: Pt completed bed mobility with supervision. He required contact guard assist for sit tostand/stand to sit. He ambulated 90' using a rolling walker requiring contact guard to minimal assist (due to imbalances). Pt was impulsive throughout session, bu responsive to verbal cues. Stair were not tested due to decreased safety. Pt reported dizziness throughout session. Noted nystagmus whenhe went from supine to sit. Pt encouraged to move slowly, to help with dizziness and safety. Pleaseconsider post-acute care services which may include home health, retirement, outpatient therapy or inpatient rehabilitation. The level of care will be determined in collaboration with patient, family/caregiver and care team members. Deficits requiring P.T. treatment needs: Safety;Mobility;Balance;Weakness;Endurance;Lower extremitystrength (08/15/23 1107) Equipment needs: (tbd) (08/14/23 0946) Plan: Continue with current treatment plan established on evaluation. AM PAC Score with Stairs: 17 A portion of this AM-PAC assessment not scored based on functional assessment; rather clinical decision making utilized based on current findings and/or prior level of function. Please refer to future AM-PAC calculations of functional ability as they become available. * Ancillary Progress Note - Cierra Ferrer MSW - 08/15/2023 10:26 AM EDT CARE MANAGEMENT - TRAUMA TRANSITION NOTE [address] [address] Name: Mikey Neal Location: [facility] [place] G503/A Date: 08/15/2023 Time: 10:26 AM Risk Stratification Risk Stratification Psycho Social / Medical Concerns Identified: Adjustment to illness/injury (08/14/23 1000) OBRA or OPTIONS needed for placement: No (08/14/23 1000) Readmission Risk Score: 9.1 (08/15/23 0801) AM-PAC Score With Stairs : 24 (08/14/231999) Caregiver Information Patient Contacts Name Relation Home Work Mobile Estela Neal Spouse [phone] Robyn Neal Adult Child [phone] Transition of Care Checklist Narrative: Pt is not medically ready for dc. Possible dc tomorrow. SW will continue to follow, address pt's evolving needs, and provide psychosocial support. Anticipated Transportation at Discharge: family Comments: Patient/Family Expectations: home Transition Planning Transition Planning Transition Plan/Considerations: Needs uncertain at this time - Continue monitoring for needs (08/14/23 1000) Transition plan discussed with - Enter name and phone #: pt (08/14/23 1000) Additional Considerations: Care Management will continue to monitor and assist with discharge planning needs * Progress Notes - Non-Billable - Nadira Malik OSA - 08/14/2023 4:33 PM EDT Peer Support Daily Service Peer Documentation Type of Contact: Pfoh-la-Gsjo at Inpatient Recovery Intervention: Engaging S:Mikey was engaging and shared openly what he remembers at the time of his fall. He admitted to only drinking 2-3 beers each day, and doesn't drink until after 12:00 He does however smoke pot each evening to relax. He thinks there may have been something in the pot, as he noticed he had a differently after smoking. a O: Affect: Broad (normal) Level of Awareness: Alert Behavior: sitting in bed, cooperative Mood: Other: pleasant Speech: Normal Rate A: Peer Assessment of Progress A Strengths Based Assessment was not completed for today's visit. P: I will continue to provide peer recovery support while pt is admitted. * Ancillary Progress Note - Zane Malik Chaplain - 08/14/2023 3:19 PM EDT PROGRESS NOTE - Spiritual Care Identification and Contact Information Update [facility] [place] [address] Name: Mikey Neal Location: [facility] [place] G503/A Date: 08/14/2023 Time: 3:19 PM Protestant: No Synagogue Pref [66] Synagogue Affiliations: REASON FOR CONTACT: Alert follow-up Trauma CONTACT LENGTH: 20 minutes PATIENT STATUS: identified Patient Name: Mikey Neal [address]: [address] [place] [id number] Date of : 1960 Source of Information:Hospital Records, Previous Registered Midwife Confirmed By: Name - Mikey Neal Relationship to Patient - self EMERGENCY CONTACT INFORMATION: EMERGENCY CONTACT 1: Name: Estela Neal Relationship: spouse Phone Numbers - Home: Time of Contact: 1145 ADDITIONAL EMERGENCY CONTACT: Name: Robyn Neal Relationship: Adult Child Phone Numbers - Time of Contact: No contact ANNOTATION: Completed a trauma follow-up visit. Listened as patient and his shared some of their story. Patient was eating lunch and asked that systems engineering manager return later. Checked in on patient laterin the shift. Patient shared that he is most anxious about his injuries in that he never has felt quite this bad. Patient works at [employer]. Provided spiritual support, encouragement, and reassurance. Extended blessings to him. Spiritual Care will continue to be available as needed or as requested. REFERRED TO NEUROPSYCHOLOGIST: Duty; Date - 08/14/2023; Time - 1630 * Care Plan - Uvaldo Santamaria RN - 08/14/2023 3:13 PM EDT Clinical Goal(s): Patient will have adequate pain control throughout this shift (08/14/23 0700) Possible barriers to meeting goal(s)/advancing plan of care: TBI Stability of the patient: Moderately stable - low risk of patient condition declining or worsening Summary regarding today's goal(s): Met: Patient did not verbalize having any pain throughout this shift. Recommendations: continue ATC tylenol, administer prns as needed. * Ancillary Progress Note - Aleena Timmons RN - 08/14/2023 1:39 PM EDT Injured Trauma Survivor Screen (ITSS) BEFORE THIS INJURY Have you ever taken medication for, or been given a mental health diagnosis? PTSD:N/A DEP: No- 0 Has there ever been a time in your life you have been bothered by feeling down or hopeless or lost all interest in the things you usually enjoyed for more than 2 weeks? PTSD: N/A DEP: No- 0 WHEN YOU WERE INJURED OR RIGHT AFTERWARD 3. Did you think you were going to ? PTSD: No- 0 DEP: No- 0 4. Do you think this was done to you intentionally? PTSD: No- 0, DEP: N/A SINCE YOUR INJURY 5. Have you felt emotionally detached from your loved ones? PTSD: N/A, DEP No- 0 6. Do you find yourself crying and unsure why? PTSD: N/A, DEP No- 0 7. Have you felt more restless, tense or jumpy than usual? PTSD: No- 0, DEP: N/A 8. Have you found yourself unable to stop worrying? PTSD: No- 0, DEP: N/A 9. Do you find yourself thinking that the world is unsafe and that people are not to be trusted? PTSD No- 0 DEP: N/A TOTAL SCORE: PTSD: 0, DEP 0 Score > or = 2 in PTSD category is positive for PTSD risk (place psychology consult for Dr Coronado indicating + ITSS) Score > or = 2 in DEP category is positive for Depression Risk (check with Dr Coronado to see if aconsult is needed) Aleena Timmons RN, BSN, TCRN, CCRN-K Trauma Extractor Tender [employer] [facility] 08/14/2023 1:40 PM * Ancillary Progress Note - Aleena Timmons RN - 08/14/2023 1:28 PM EDT SBIRT NOTE Was screening able to be completed? Yes If unable to be completed, why? n/a S (screening) CAGE-[employer]ID Substance Abuse Screening Tool (Any "yes" answer indicates a positive screen) C Have you ever felt the need to Cut down on your drinking or drug use? No A Have people Annoyed you by criticizing your drinking or drug use? No G Have you ever felt Guilty about drinking or drug use? No E Have you ever felt you needed a drink or used drugs first thing in the morning to steady your nerves or to get rid of a hangover (Eye-Trolley Coach Driver)? No BI (brief intervention) to be done on all patients: I have reviewed both ETOH/ Urine Tox screen with patient and discussed the results as well. After reviewing the results patient admits they they do or do not feel their drinking &/or druguse interferes with their life/goals for the future. Do Not Patient does or does not want to be referred to treatment at this time. Does not RT (referral for treatment) to be done if BI and/or screening +, or any concerns/issues arose whilespeaking with patient (pamphlet for area services given to all pts no matter what): Referrals to CRS (both inpatient and outpatient) as able Consults placed for trauma psychology to see patient Aleena Timmons RN, BSN, TCRN, CCRN-K Trauma Extractor Tender [employer] [facility] 08/14/2023 1:39 PM * Ancillary Progress Note - Aleena Timmons RN - 08/14/2023 1:13 PM EDT NURSING PROGRESS NOTE - Rehabilitation Review - Trauma Surgery [facility] [place] [address] Name: Mikey Neal Location: [facility] [place] G503/A Date: 08/14/2023 Time: 1:13 PM ADULT REHABILITATION REVIEW Chart reviewed according to [employer] [place] [employer] guidelines. Case discussed in trauma rounds. Mechanism of Injury: s/p fall from ladder. Injuries consistant with mechanism. Neurosurgery consulted. Occupation: retired. Injury prevention: discussed with patient at bedside. Rehabilitation needs assessed. Rehabilitation Medicine: N/A Trauma Psychology: yes -- consult to be placed Alcohol/Chemical Dependency: yes -- SBIRT done Social Work: yes -- Alexander Ferrer MSW following as needed Physical Therapy: yes -- consult placed Speech Pathology: yes -- consult placed Occupational Therapy: yes -- consult placed Registered Midwife Services: yes -- following as needed Patient lives at home with . Will continue to follow for needs. Aleena Timmons RN, BSN, TCRN, CCRN-K Trauma Extractor Tender [employer] [facility] 08/14/2023 1:18 PM * Ancillary Progress Note - Deana Degroot RDN - 08/14/2023 12:05 PM EDT CLINICAL NUTRITION ADULT RISK ASSESSMENT [address] [address] Name: Mikey Neal Location: [facility] [place] G503/A Date: 08/14/2023 Time: 2:35 PM How patient was identified (select 2): date and Name Mikey Neal is a 63 year old male being assessed for clinical nutrition risk related to trauma Primary diagnosis: Patient is a 63 year old male admitted s/p fall from a ladder with SDH, SAH. Other pertinent information: Patient reports good PO intake and appetite prior to admission. He eats a regular with no food allergies. He states a UBW of 180 pounds, though unsure when last weighed this. Weight discrepancy in the chart, was 80.1 kg and then 15 minutes later was 75.5 kg. Will follow. Patient did say he has always been thin. Denies N/V, constipation/diarrhea. Anthropometrics Measurements Admission weight (for dietitians): 80.1 kg (or 75.5 kg) Height: 185.4 cm (6' 1") (08/13/23 141) Weight: 75.5 kg (166 lb 7.2 oz) (08/13/23 141) BMI: 21.96 (08/13/23 141) Usual Body Weight or EDW for Dialysis Patients: 180 pounds/81.8 kg Diet: Regular Previously followed diet: regular Food Allergies/Intolerances: none Pertinent medications/vitamins/minerals/supplements: colace, senokot RISK FACTORS: Adult Energy Intake: No significant decrease Interpretation of Weight Change: No recent weight/weight history available Skin: Intact NUTRITION RISK CATEGORY: Nutrition Risk Category: Low/Moderate (0-1 factors) Clinical Nutrition Recommendations: Diet: Continue current nutrition plan NUTRITION INTERVENTION/PLAN: Continue current care plan Will follow and adjust nutritional plan as medical condition requires. Please contact for change(s)in patient condition requiring earlier intervention. Deana Degroot RDN, IAIN CORADO Clinical Dietitian Phone [phone] [employer] * Ancillary Progress Note - Cierra Ferrer MSW - 08/14/2023 10:13 AM EDT CARE MANAGEMENT - TRAUMA INITIAL SCREENING [address] [address] Name: Mikey Neal Location: [facility] [place] G503/A Date: 08/14/2023 Time: 10:13 AM Discussed with Trauma and with the interdisciplinary care team. This Financial Services Technician performed a chartreview and met with pt at bedside to complete admission screen and assessed needs for transition planning. The career law clerk role and services were explained and emotional support was provided. Chief Complaint: Trauma and Fall Prior Living Arrangements What was your living situation prior to admission/observation?: With Spouse (08/13/231414) Living Quarters: House (08/14/23999) Number of steps to enter living quarters:: 7 (08/14/23999) How many stories is the dwelling?: One Story (08/14/23999) Prior Level of Functioning Describe the patient's ability prior to admission/observation to perform ADLs: Performs independently (08/13/231414) Describe the patient's mobility status prior to admission: Patient ambulates independently (08/13/231414) Patient uses assistive device: No (08/13/231414) Caregiver Information Patient Contacts Name Relation Home Work Mobile Estela Neal Spouse [phone] Robyn Neal Adult Child [phone] Risk Stratification Risk Stratification Psycho Social / Medical Concerns Identified: Adjustment to illness/injury (08/14/23999) OBRA or OPTIONS needed for placement: No (08/14/23999) Readmission Risk Score: 8.14 (08/14/23 0801) AM-PAC Score With Stairs : 7 (08/13/231999) Prior to Admission Services Services Prior to Admission CERTIFIED MEDICAL TRANSCRIPTIONIST Transportation (Services received within the last 30 days): Patient drives self (08/14/23999) Outpatient Financial Services Technician: No care engineering team supervisor to display Comments: Pt lives with his in a single story home with 7 steps to enter the home. Pt is making the basement into an apartment. CERTIFIED MEDICAL TRANSCRIPTIONIST, pt was independent of ADL's and used no DME. He drives and will have a ride home at [place]. His said he would use [facility] due to it being closer and hehas prescription coverage. He has no recent SNF, rehab, MH or D&A stays or HH involvement.Pt sta soco he makes a 6 pack last 2 days. According to pt's , he has slowed down his drinking and was drinking way ore than that. Pt denies any drug use other than smoking marijuana off and on. He states the last he smoked was a week ago and he has no medical card. SW will continue to follow, address pt's evolving needs, and provide psychosocial support. Patient/Family Expectations: home For further screening information, please refer to the Care Management flow document. * Care Plan - Asuncion Euceda RN - 08/14/2023 6:03 AM EDT Clinical Goal(s): turn, repos (08/13/231999) Possible barriers to meeting goal(s)/advancing plan of care: pain, limited range of motion, fatigue, weakness Stability of the patient: Moderately stable - low risk of patient condition declining or worsening Summary regarding today's goal(s): Met: patient was encouraged to turn and reposition to maintain skin integrity Recommendations: continue current treatment plan * Ancillary Progress Note - Yovany Hendrix RRT - 08/13/2023 2:46 PM EDT PATIENT DRIVEN PROTOCOL - Respiratory Care Services [address] [address] Name: Mikey Neal Location: [facility] [place] G503/A Date: 08/13/2023 Time: 2:46 PM Patient Driven Protocol Summary: Initial evaluation performed. This Treatment Plan and medications will be reviewed by the Primary Care Team for any contraindications. Respiratory Care Treatment Plan Pulmonary Volume Expansion Therapy: Incentive Spirometry PRN to enhance mobilization of secretions and prevent or treat alveolar consolidation and atelectasis. . Secretion Management Treatment: Flutter TherapyPRN to enhance mobilization of secretions and prevent or treat alveolar consolidation and atelectasis. . The patient will be re-evaluated: No re-evaluation needed. Indications for treatment met. The Triage Level is: (Assessment Score = 0 - 5) Level 5. Triage Level Definitions: Level 1 Severe Respiratory/Airway Compromise Level 2 Moderate Respiratory/Airway Compromise or high risk for pulmonary complications Level 3 Mild Respiratory/Airway Compromise or moderate risk for pulmonary complications Level 4 Episodic Respiratory/Airway Compromise or low risk for pulmonary complications Level 5 No Respiratory/Airway Compromise Triage 1 Triage 2 Triage 3 Triage 4 Triage 5 greater than 20 16 - 20 11 - 15 6 - 10 0 - 5 Medical Record Assessment Clinical Findings Pulmonary Status: 0 - No Smoking or quit greater than 10 years ago Surgical Status: 0 - No Surgical History Chest X-Ray: 0 - Clear Assessment Score: 0 Patient Assessment Clinical Findings Respiratory Pattern: 0 - RR 12 - 20; Patient only gets breathless with strenuous exercise. Breath Sounds: 0 - Clear to auscultation Cough Effectiveness: 0 - Strong non-productive Sputum Production: 0 - No sputum production Level of Activity: 1 - Ambulatory with assist O2 needed to keep SpO2 greater than or equal to 92%: 0 - Room Air Assessment Score: 1 Total Assessment Score: 1 Breath Sounds: Inspiratory and expiratory clear bilaterally.. Cough and Sputum: An effective cough produced no sputum... CXR: EXAM: EXAM: XR CHEST 1 VIEW DATE TIME: 08/13/2023 - 08/13/2023 1:41 pm HISTORY: 63 y/o M trauma COMPARISON: None FINDINGS: No focal consolidation, pleural effusion, or pneumothorax. Cardiac silhouette is normal in size. No acute osseous abnormality. IMPRESSION IMPRESSION: No acute cardiopulmonary disease.. Vital Signs: Resp: 15 (08/13/23 1400) Pulse: 50 (08/13/23 1400) Temp: 36.7 C (98.1 F) (08/13/23 1415) BP: 150/90 (08/13/23 1400) SpO2: 100 % (08/13/23 1400) PFT: Inspiratory capacity: 4L. Primary Service: Critical Care Black. Admitting Diagnosis: Trauma [T14.90XA] Pulmonary Diagnosis: None . Prescriptions/Home Medications/Durable Medical Equipment: None per patient.. * Medical Necessity - Julieth Grier RN - 08/13/2023 2:16 PM EDT AdmissionCare Guideline: Trauma, Inpatient Based on the indications selected for the patient, the bed status of Inpatient was determined to beMET The following indications were selected as present at the time of evaluation of the patient: - Nonoperative care of significant injury Additional Information: [facility] from [facility] CC: fall from ladder -+LOC Neurosurgery consult:SAH, SDH, IPH AdmissionCare documentation entered by: Julieth Grier [facility] [employer], 27th edition, Copyright 2022 [facility] [employer] All Rights Reserved. [id number] Solely for purpose of utilization review and payment; not a diagnostic tool * Ancillary Progress Note - Kenneth Alexis Chaplain - 08/13/2023 2:16 PM EDT PROGRESS NOTE-Spiritual Care Trauma Alert [address] [address] Name: Mikey Neal Location: Date: 08/13/2023 Time: 2:17 PM Protestant: No Synagogue Pref [66] Synagogue Affiliations: REASON FOR CONTACT: Trauma Alert Response TYPE OF ALERT: Adult Level 2 TIME OF ALERT: 1151 CONTACT LENGTH: 15 min MECHANISM OF INJURY/DESCRIPTION OF INCIDENT: Fall TRAUMA STATUS: identified - on arrival Patient Name: Mikey Neal [address]: [address] [place] [id number] Date of : 1960 Source of Information:EMS and Hospital Records Confirmed By: Name - Mikey Neal Relationship to Patient - Self EMERGENCY CONTACT INFORMATION: EMERGENCY CONTACT 1: Name: Estela Neal Relationship: Spouse Phone Numbers - Home: Cell: XX Work: XX Time of Contact: 1335 ADDITIONAL EMERGENCY CONTACT: Name: Mikey Neal, Relationship: Father Phone Numbers - Home: Cell: XX Work: XX Time of Contact: XX ANNOTATION: Responded to Trauma Alert. Patient arrived in Trauma [place] 1 without any family members. Registered Midwife contacted PT's and informed her that PT was brought into the ED. PT's said she will try to see if she could come to see him, but was not certain if she would make it because she does not drive. provided support for both PT and his . REFERRED TO : Duty , Date - 08/13/23, Time - 143 documented in this encounter Plan of Treatment Scheduled Orders Name Type Priority Associated Diagnoses Orde r Schedule CT HEAD/BRAIN WO CONTRAST Medical Imaging Routine SDH (subdural hematoma) (HCC) SAH (subarachnoid hemorrhage) (HCC) Intracranial bleed (HCC) Expected: 08/29/2023, Expires: 09/14/2024 Health Maintenance Due Date Last Done Comments Lipid Panel 1960 Depression Screening 1972 Hepatitis C Screening 02/26/1978 Cologuard 02/26/2005 Colonoscopy 02/26/2005 Colorectal Cancer Screening 02/26/2005 Fecal Occult Blood Test 02/26/2005 Sigmoidoscopy 02/26/2005 Zoster Vaccines (1 of 2) 02/26/2010 COVID-19 Vaccine (2 - 2022-2 4 season) 2023 10/18/2020 Influenza Vaccine (FLU shot) (#1) 2023 DTaP,Tdap,and Td Vaccines (2 - Td or Tdap) 08/12/2033 08/13/2023 HIV Screening Completed 08/13/2023 GARDASIL-HPV IMMUNIZATION SERIES Aged Out No longer eligible based on patient's age to complete this topic Hepatitis B Aged Out No longer eligi ble based on patient's age to complete this topic MENINGOCOCCAL (MENACTRA/MENVEO) Aged Out No longer eligible based on patient's age to complete this topic Pneumococcal Vaccine: Pediat rics (0 to 5 Years) and At-Risk Patients (6 to 64 Years) Aged Out No longer eligi ble based on patient's age to complete this topic documented as of this encounter Medical Devices Not on filedocumented as of this encounter Procedures Procedure Name Priority Date/Time Associated Diagnosis Comments BASIC METABOLIC PANEL Routine 08/16/2023 6:58 AM EDT PHOSPHORUS Routine 08/16/2023 6:58 AM EDT CALCIUM, IONIZED Routine 08/16/2023 6:58 AM EDT CBC Routine 08/16/2023 6:58 AM EDT MAGNESIUM Routine 08/16/2023 6:58 AM EDT BASIC METABOLIC PANEL Routine 08/15/2023 6:39 AM EDT PHOSPHORUS Routine 08/15/2023 6:39 AM EDT CALCIUM, IONIZED Routine 08/15/2023 6:39 AM EDT CBC Routine 08/15/2023 6:39 AM EDT MAGNESIUM Routine 08/15/2023 6:39 AM EDT ECHO, COMPLETE (2D), TRANS-THORACIC STAT 08/14/2023 1:[address] HEAD/BRAIN WO CONTRAST STAT 08/14/2023 12:21 PM EDT BASIC METABOLIC PANEL Routine 08/14/2023 6:39 AM EDT PHOSPHORUS Routine 08/14/2023 6:39 AM EDT CALCIUM, IONIZED Routine 08/14/2023 6:39 AM EDT MAGNESIUM Routine 08/14/2023 6:39 AM EDT CBC Routine 08/14/2023 6:38 AM EDT CA ECG ROUTINE ECG W/LEAST 12 LDS I&R ONLY STAT 08/14/2023 3:[address] HEAD/BRAIN WO CONTRAST STAT 08/13/2023 5:39 PM EDT TOXICOLOGY, URINESCREEN W/ CONFIRMATION STAT 08/13/2023 5:18 PM EDT THC METABOLITE, URINE CONFIRMATION STAT 08/13/2023 5:18 PM EDT CULTURE, URINE, QUANTITATIVE STAT 08/13/2023 5:18 PM EDT OPIOIDS, URINE CONFIRMATION STAT 08/13/2023 5:18 PM EDT AMPHETAMINES, URINE CONFIRMATION STAT 08/13/2023 5:18 PM EDT URINALYSIS, REFLEX TO MICROSCOPIC STAT 08/13/2023 5:18 PM EDT XR CHEST 1 VIEW Routine 08/13/2023 1:41 PM EDT SARS-COV-2 (COVID-19), NAAT STAT 08/13/2023 1:38 PM EDT RADIOLOGY EXAM - CT (IMAGES ONLY, NO REPORT) Routine 08/13/2023 1:24 PM EDT RADIOLOGY EXAM - CT (IMAGES ONLY, NO REPORT) Routine 08/13/2023 1:24 PM EDT DIFFERENTIAL, AUTOMATED STAT 08/13/2023 1:20 PM EDT HIV ANTIGEN & ANTIBODY SCREEN W/ CONFIRMATION Routine 08/13/2023 1:20 PM EDT BASIC METABOLIC PANEL STAT 08/13/2023 1:20 PM EDT ABO/RH STAT 08/13/2023 1:20 PM EDT TYPE AND SCREEN STAT 08/13/2023 1:20 PM EDT CBC STAT 08/13/2023 1:20 PM EDT PT INR STAT 08/13/2023 1:20 PM EDT AST STAT 08/13/2023 1:20 PM EDT LACTATE STAT 08/13/2023 1:20 PM EDT ETHANOL, MEDICAL STAT 08/13/2023 1:20 PM EDT APTT STAT 08/13/2023 1:20 PM EDT CBC STAT 08/13/2023 1:20 PM EDT documented in this encounter Results * PHOSPHORUS (08/16/2023 6:58 AM EDT) Phosphorus 3.3 2.5 - 4.8 mg/dL 08/16/2023 8:00 AM EDT LAB[facility]ATORY [facility] Blood Venous blood specimen / Unknown Venipuncture / Unknown 08/16/2023 6:58 AM EDT 08/16/2023 7:15 AM EDT Huseyin Shetty PA-C LAB BLOOD ORD ERABLES Performing Organization Address City/[facility]/ZIP Co de Phone Number LABORATORY [facility] [facility] [address] [place] [address] * MAGNESIUM (08/16/2023 6:58 AM EDT) Magnesium 2.2 1.5 - 2.6 mg/dL 08/16/2023 8:00 AM EDT LAB[facility]ATORY [facility] Blood Venous blood specimen / Unknown Venipuncture / Unknown 08/16/2023 6:58 AM EDT 08/16/2023 7:15 AM EDT Huseyin Shetty PA-C LAB BLOOD ORD ERABLES LABORATORY [facility] [place] [facility] [address] [place] [address] * CALCIUM, IONIZED (08/16/2023 6:58 AM EDT) Pathologist [facility] Calcium, Ionized 1.18 1.13 - 1.32 mmol/L 08/16/2023 7:47 AM EDT LAB[facility]ATORY [facility] Comment:This test was develo ped and its performance characteristics dtermined by [employer]. It has not been cleared or approved by the US Food and Drug Administration Blood Venous blood specimen / Unknown Venipuncture / Unknown 08/16/2023 6:58 AM EDT 08/16/2023 7:15 AM EDT Huseyin Shetty PA-C LAB BLOOD ORD ERABLES LABORATORY [facility] [address] [place] [address] * (ABNORMAL) BASIC METABOLIC PANEL (08/16/2023 6:58 AM EDT) Pathologist [facility] BUN 14 6 - 20 mg/dL 08/16/2023 8:00 AM EDT LAB[facility]ATORY [facility] Creatinine 0.5(L) 0.6 - 1.2 mg/dL 08/16/2023 8:00 AM EDT LABORATORY [facility] Estimated Glomerular Filtration Rate >90 >=60 mL/min 08/16/2023 8:00 AM EDT LAB[facility]ATORY [facility] Comment:eGFR is calculated b ased on the CKD-EPI 2020 equation Sodium 131(L) 135 - 146 mmol/L 08/16/2023 8:00 AM EDT LAB[facility]ATORY [facility] Potassium 3.9 3.5 - 5.1 mmol/L 08/16/2023 8:00 AM EDT LAB[facility]ATORY [facility] Chloride 98 98 - 107 mmol/L 08/16/2023 8:00 AM EDT LAB[facility]ATORY [facility] CO2 20(L) 22 - 32 mmol/L 08/16/2023 8:00 AM EDT LAB[facility]ATORY [facility] Anion Gap 13 7 - 15 mmol/L 08/16/2023 8:00 AM EDT LAB[facility]ORY [facility] Glucose 101 70 - 120 mg/dL 08/16/2023 8:00 AM EDT LAB[facility]ATORY [facility] Calcium 8.7 8.4 - 10.2 mg/dL 08/16/2023 8:00 AM EDT LAB[facility]ATORY [facility] Blood Venous blood specimen / Unknown Venipuncture / Unknown 08/16/2023 6:58 AM EDT 08/16/2023 7:15 AM EDT Huseyin Shetty PA-C LAB BLOOD ORD ERABLES LAB[facility]ATORY [facility] [address] [place] [address] * CBC (08/16/2023 6:58 AM EDT) WBC 8.84 4.00 - 10.80 K/uL 08/16/2023 7:28 AM EDT LAB[facility]ATORY [facility] RBC 4.66 4.50 - 5.25 M/uL 08/16/2023 7:28 AM EDT LAB[facility]ATORY [facility] HGB 14.5 14.0 - 16.8 g/dL 08/16/2023 7:28 AM EDT LAB[facility]ATORY [facility] HCT 40.0 40.0 - 48.4 % 08/16/2023 7:28 AM EDT LAB[facility]ATORY [facility] MCV 85.8 82.0 - 99.5 fL 08/16/2023 7:28 AM EDT LAB[facility]ATORY [facility] MCH 31.1 27.0 - 34.0 pg 08/16/2023 7:28 AM EDT LAB[facility]ATORY [facility] MCHC 36.3 32.0 - 36.0 g/dL 08/16/2023 7:28 AM EDT LAB[facility]ATORY [facility] RDW 12.8 11.5 - 15.5 % 08/16/2023 7:28 AM EDT LAB[facility]ATORY [facility] PLT 276 140 - 400 K/uL 08/16/2023 7:28 AM EDT LAB[facility]ORY [facility] MPV 9.0 6.6 - 11.1 fL 08/16/2023 7:28 AM EDT LAB[facility]ATORY [facility] nRBCs 0 <=0 /100 WBCs 08/16/2023 7:28 AM EDT LAB[facility]ATORY [facility] Blood Venous blood specimen / Unknown Venipuncture / Unknown 08/16/2023 6:58 AM EDT 08/16/2023 7:15 AM EDT Huseyin Shetty PA-C LAB BLOOD ORD ERABLES Performing Organization Address [facility]/ZIP Co de Phone Number LABORATORY [place] [address] [place] [address] * PHOSPHORUS (08/15/2023 6:39 AM EDT) Phosphorus 2.8 2.5 - 4.8 mg/dL 08/15/2023 7:43 AM EDT LABORATORY [facility] [place] Blood Venous blood specimen / Unknown Venipuncture / Unknown 08/15/2023 6:39 AM EDT 08/15/2023 7:17 AM EDT Huseyin Shetty PA-C LAB BLOOD ORD ERAWILLIE Performing Organization Address [facility] Co de Phone Number LABORATORY [place] [address] [place] [address] * MAGNESIUM (08/15/2023 6:39 AM EDT) Magnesium 2.1 1.5 - 2.6 mg/dL 08/15/2023 7:43 AM EDT LABORATORY [facility] [place] Blood Venous blood specimen / Unknown Venipuncture / Unknown 08/15/2023 6:39 AM EDT 08/15/2023 7:17 AM EDT Huseyin Shetty PA-C LAB BLOOD ORD ERAWILLIE Performing Organization Address [facility] Co de Phone Number LABORATORY [address] [address] * CALCIUM, IONIZED (08/15/2023 6:39 AM EDT) Calcium, Ionized 1.21 1.13 - 1.32 mmol/L 08/15/2023 7:17 AM EDT LABORATORY [facility] [place] Comment:This test was develo ped and its performance characteristics dtermined by [employer]. It has not been cleared or approved by the US Food and Drug Administration Blood Venous blood specimen / Unknown Venipuncture / Unknown 08/15/2023 6:39 AM EDT 08/15/2023 7:07 AM EDT Huseyin Shetty PA-C LAB BLOOD ORD ERAWILLIE LAB[facility]ATORY [facility] [address] [place] [address] * (ABNORMAL) BASIC METABOLIC PANEL (08/15/2023 6:39 AM EDT) BUN 13 6 - 20 mg/dL 08/15/2023 7:43 AM EDT LAB[facility]ATORY [facility] Creatinine 0.5(L) 0.6 - 1.2 mg/dL 08/15/2023 7:43 AM EDT LAB[facility]ATORY [facility] Estimated Glomerular Filtration Rate >90 >=60 mL/min 08/15/2023 7:43 AM EDT LAB[facility]ATORY [facility] Comment:eGFR is calculated b ased on the CKD-EPI 2020 equation Sodium 132(L) 135 - 146 mmol/L 08/15/2023 7:43 AM EDT LAB[facility]ATORY [facility] Potassium 3.4(L) 3.5 - 5.1 mmol/L 08/15/2023 7:43 AM EDT LAB[facility]ATORY [facility] Chloride 97(L) 98 - 107 mmol/L 08/15/2023 7:43 AM EDT LAB[facility]ATORY [facility] CO2 23 22 - 32 mmol/L 08/15/2023 7:43 AM EDT LAB[facility]ATORY [facility] Anion Gap 12 7 - 15 mmol/L 08/15/2023 7:43 AM EDT LAB[facility]ATORY [facility] Glucose 99 70 - 120 mg/dL 08/15/2023 7:43 AM EDT LAB[facility]ATORY [facility] Calcium 8.8 8.4 - 10.2 mg/dL 08/15/2023 7:43 AM EDT LAB[facility]ATORY [facility] Blood Venous blood specimen / Unknown Venipuncture / Unknown 08/15/2023 6:39 AM EDT 08/15/2023 7:17 AM EDT Huseyin Shetty PA-C LAB BLOOD ORD ERAWILLIE LAB[facility]ATORY [facility] [address] [place] [address] * CBC (08/15/2023 6:39 AM EDT) WBC 7.55 4.00 - 10.80 K/uL 08/15/2023 7:27 AM EDT LAB[facility]ATORY [facility] RBC 4.60 4.50 - 5.25 M/uL 08/15/2023 7:27 AM EDT LAB[facility]ATORY [facility] HGB 14.1 14.0 - 16.8 g/dL 08/15/2023 7:27 AM EDT LAB[facility]ORY [facility] HCT 40.0 40.0 - 48.4 % 08/15/2023 7:27 AM EDT LAB[facility]ATORY [facility] MCV 87.0 82.0 - 99.5 fL 08/15/2023 7:27 AM EDT LAB[facility]ATORY [facility] MCH 30.7 27.0 - 34.0 pg 08/15/2023 7:27 AM EDT LAB[facility]ATORY [facility] MCHC 35.3 32.0 - 36.0 g/dL 08/15/2023 7:27 AM EDT LAB[facility]ATORY [facility] RDW 12.8 11.5 - 15.5 % 08/15/2023 7:27 AM EDT LAB[facility]ATORY [facility] PLT 283 140 - 400 K/uL 08/15/2023 7:27 AM EDT LAB[facility]ATORY [facility] MPV 9.3 6.6 - 11.1 fL 08/15/2023 7:27 AM EDT LAB[facility]ATORY [facility] nRBCs 0 <=0 /100 WBCs 08/15/2023 7:27 AM EDT LAB[facility]ATORY [facility] Blood Venous blood specimen / Unknown Venipuncture / Unknown 08/15/2023 6:39 AM EDT 08/15/2023 7:17 AM EDT Huseyin Shetty PA-C LAB BLOOD ORD ERABLES LABORATORY [facility] [place] [address] [place] [address] * ECHO, COMPLETE (2D), TRANS-THORACIC (08/14/2023 1:32 PM EDT) LEFT VENTRICULAR EJECTION FRACTION 55 % [facility] 08/14/2023 12:5 9 PM EDT Willie Paredes DO ECHOCARDIOLOGY [facility] * CT HEAD/BRAIN WO CONTRAST (08/14/2023 12:21 PM EDT) Anatomical Region Laterality Modality Head Computed Tomogra phy 08/14/2023 1:21 PM EDT Impressions 08/14/2023 1:19 PM EDT IMPRESSION Stable posttraumatic hemorrhages in the brain. Narrative 08/14/2023 1:[address] HEAD/BRAIN WO CONTRAST - 08/14/2023 12:21 pm HISTORY new confusion. Assess for worsening bleed TECHNIQUE Axial scans were obtained through the brain using standard protocol. Coronal and sagittal reconstructions were performed. COMPARISON 08/13/2023 FINDINGS Again seen are multiple hemorrhagic contusions, predominantly in the inferior frontal and anterior temporal lobes more. There is some surrounding vasogenic edema. Small subdural hematomas along the frontal and temporal convexities, small amount of intraventricular and subarachnoid blood are again seen. There is no appreciable change. No midline shift, hydrocephalus, or effacement of cisterns. No scalp hematoma again seen. No fluid seen in the sinuses and mastoid air cells. Procedure Note Yohana Oseguera MD - 08/14/[address] HEAD/BRAIN WO CONTRAST - 08/14/2023 12:21 pm HISTORY new confusion. Assess for worsening bleed TECHNIQUE Axial scans were obtained through the brain using standard protocol.Coronal and sagittal reconstructions were performed. COMPARISON 08/13/2023 FINDINGS Again seen are multiple hemorrhagic contusions, predominantly in theinferior frontal and anterior temporal lobes more. There is somesurrounding vasogenic edema. Small subdural hematomas along the frontaland temporal convexities, small amount of intraventricular andsubarachnoid blood are again seen. There is no appreciable change. No midline shift, hydrocephalus, oreffacement of cisterns. No scalp hematoma again seen. No fluid seen inthe sinuses and mastoid air cells. IMPRESSION IMPRESSION Stable posttraumatic hemorrhages in the brain. Shaun Hoskins DO RAD CT * PHOSPHORUS (08/14/2023 6:39 AM EDT) Phosphorus 2.8 2.5 - 4.8 mg/dL 08/14/2023 7:32 AM EDT LABORATORY [facility] [place] Blood Venous blood specimen / Unknown Venipuncture / Unknown 08/14/2023 6:39 AM EDT 08/14/2023 6:58 AM EDT Huseyin Shetty PA-C LAB BLOOD ORD ERAWILLIE Performing Organization Address City/[facility] Co de Phone Number LABORATORY [facility] [place] [facility] [address] [place] [address] * MAGNESIUM (08/14/2023 6:39 AM EDT) Magnesium 2.1 1.5 - 2.6 mg/dL 08/14/2023 7:32 AM EDT LABORATORY [facility] [place] [facility] Blood Venous blood specimen / Unknown Venipuncture / Unknown 08/14/2023 6:39 AM EDT 08/14/2023 6:58 AM EDT Huseyin Shetty PA-C LAB BLOOD ORD ERAWILLIE Performing Organization Address [facility] de Phone Number LABORATORY [place] [address] [place] [address] * CALCIUM, IONIZED (08/14/2023 6:39 AM EDT) Pathologist [facility] Calcium, Ionized 1.19 1.13 - 1.32 mmol/L 08/14/2023 7:18 AM EDT LABORATORY [facility] [place] Comment:This test was develo ped and its performance characteristics dtermined by [employer]. It has not been cleared or approved by the US Food and Drug Administration Blood Venous blood specimen / Unknown Venipuncture / Unknown 08/14/2023 6:39 AM EDT 08/14/2023 6:58 AM EDT Huseyin Shetty PA-C LAB BLOOD ORD ERAWILLIE Performing Organization Address City/[facility]/ZIP Co de Phone Number LABORATORY [place] [address] [place] [address] * BASIC METABOLIC PANEL (08/14/2023 6:39 AM EDT) BUN 16 6 - 20 mg/dL 08/14/2023 7:32 AM EDT LAB[facility]ATORY [facility] Creatinine 0.6 0.6 - 1.2 mg/dL 08/14/2023 7:32 AM EDT LAB[facility]ATORY [facility] Estimated Glomerular Filtration Rate >90 >=60 mL/min 08/14/2023 7:32 AM EDT LAB[facility]ATORY [facility] Comment:eGFR is calculated b ased on the CKD-EPI 2020 equation Sodium 135 135 - 146 mmol/L 08/14/2023 7:32 AM EDT LAB[facility]ATORY [facility] Potassium 3.7 3.5 - 5.1 mmol/L 08/14/2023 7:32 AM EDT LAB[facility]ATORY [facility] Chloride 102 98 - 107 mmol/L 08/14/2023 7:32 AM EDT LAB[facility] CO2 23 22 - 32 mmol/L 08/14/2023 7:32 AM EDT LAB[facility]ATORY [facility] Anion Gap 10 7 - 15 mmol/L 08/14/2023 7:32 AM EDT LAB[facility]ATORY [facility] Glucose 106 70 - 120 mg/dL 08/14/2023 7:32 AM EDT LAB[facility]ATORY [facility] Calcium 8.6 8.4 - 10.2 mg/dL 08/14/2023 7:32 AM EDT LABORATORY C Blood Venous blood specimen / Unknown Venipuncture / Unknown 08/14/2023 6:39 AM EDT 08/14/2023 6:58 AM EDT Huseyin Shetty PA-C LAB BLOOD ORD ERABLES LABORATORY [facility] [address] [place] [address] * CBC (08/14/2023 6:38 AM EDT) WBC 8.73 4.00 - 10.80 K/uL 08/14/2023 7:14 AM EDT LAB[facility]ATORY [facility] RBC 4.63 4.50 - 5.25 M/uL 08/14/2023 7:14 AM EDT LAB[facility]ATORY [facility] HGB 14.3 14.0 - 16.8 g/dL 08/14/2023 7:14 AM EDT LABORATORY [facility] HCT 41.0 40.0 - 48.4 % 08/14/2023 7:14 AM EDT LABORATORY [facility] [place] MCV 88.6 82.0 - 99.5 fL 08/14/2023 7:14 AM EDT LABORATORY [facility] [place] MCH 30.9 27.0 - 34.0 pg 08/14/2023 7:14 AM EDT LABORATORY [facility] [place] MCHC 34.9 32.0 - 36.0 g/dL 08/14/2023 7:14 AM EDT LABORATORY [facility] [place] RDW 13.2 11.5 - 15.5 % 08/14/2023 7:14 AM EDT LABORATORY [facility] [place] PLT 277 140 - 400 K/uL 08/14/2023 7:14 AM EDT LABORATORY [facility] [place] [facility] MPV 9.1 6.6 - 11.1 fL 08/14/2023 7:14 AM EDT LABORATORY [facility] [facility] nRBCs 0 <=0 /100 WBCs 08/14/2023 7:14 AM EDT LABORATORY [facility] [place] Blood Venous blood specimen / Unknown Venipuncture / Unknown 08/14/2023 6:38 AM EDT 08/14/2023 6:58 AM EDT Huseyin Shetty PA-C LAB BLOOD ORD ERABLES Performing Organization Address City/State/[facility] Co de Phone Number LABORATORY [facility] [address] [place] [address] * EKG (08/14/2023 3:18 AM EDT) 08/14/2023 3:18 AM EDT Narrative Procedure Note Jak Gan MD - 08/14/2023 3:18 AM EDT REASON FOR STUDY: bradi CONCLUSIONS: Marked sinus bradycardia Abnormal ECG No previous ECGs available Ventricular Rate: 43 Atrial Rate: 43 CA Interval: 184 QRS Duration: 106 QT/QTc: 502/424 ms P-R-T Heath: 55 : 20 : 41 degrees Iza Redd PA-C EKG [facility] * CT HEAD/BRAIN WO CONTRAST (08/13/2023 5:39 PM EDT) Anatomical Region Laterality Modality Head Computed Tomogra phy 08/13/2023 6:21 PM EDT Impressions 08/13/2023 6:18 PM EDT IMPRESSION Redemonstrated hemorrhagic contusions, subarachnoid hemorrhage, and trace subdural hematomas, similar to the previous study. Narrative 08/13/2023 6:[address] HEAD/BRAIN WO CONTRAST HISTORY repeat TBI COMPARISON Outside study dated 08/13/2023 performed at proximally 10:[address] scan of the head was performed without intravenous contrast. FINDINGS Redemonstrated hemorrhagic contusions involving the right greater than left inferior frontal lobes, left frontal operculum, right lateral frontal lobe and anterior temporal lobes. Scattered subarachnoid hemorrhage is also present. Trace subdural hematomas are also seen along the inferior frontal convexities. Overall findings are similar to the previous study. No midline shift. Generalized volume loss is present with prominence of the ventricles and sulci. Mild paranasal sinus mucosal thickening is present. A mucous retention cyst is seen within the left maxillary sinus. Procedure Note Yuniel Montana MD - 08/13/[address] HEAD/BRAIN WO CONTRAST HISTORY repeat TBI COMPARISON Outside study dated 08/13/2023 performed at proximally 10:[address] scan of the head was performed without intravenous contrast. FINDINGS Redemonstrated hemorrhagic contusions involving the right greater thanleft inferior frontal lobes, left frontal operculum, right lateral frontallobe and anterior temporal lobes. Scattered subarachnoid hemorrhage isalso present. Trace subdural hematomas are also seen along the inferiorfrontal convexities. Overall findings are similar to the previousstudy. No midline shift. Generalized volume loss is present with prominence ofthe ventricles and sulci. Mild paranasal sinus mucosal thickening is present. A mucous retentioncyst is seen within the left maxillary sinus. IMPRESSION IMPRESSION Redemonstrated hemorrhagic contusions, subarachnoid hemorrhage, and tracesubdural hematomas, similar to the previous study. Huseyin Shetty PA-C RAD CT * (ABNORMAL) OPIOIDS, URINE CONFIRMATION (08/13/2023 5:18 PM EDT) Methodology LC-MS/MS 08/16/2023 10:04 AM EDT LABORATORY [facility] [place] [facility] Codeine Confirmation, U Negative Negative 08/16/2023 10:04 AM EDT LABORATORY [facility] Morphine Confirmation, U 1,323(H) Negative ng/mL 08/16/2023 10:04 AM EDT LABORATORY [facility] [facility] Hydrocodone Confirmation, U Negative Negative 08/16/2023 10:04 AM EDT LABORATORY [facility] [facility] Hydromorphone Confirmation, U Negative Negative 08/16/2023 10:04 AM EDT LABORATORY [facility] [place] Dihydrocodeine Confirmation, U Negative Negative 08/16/2023 10:04 AM EDT LABORATORY [facility] [place] Oxycodone Confirmation, U Negative Negative 08/16/2023 10:04 AM EDT LABORATORY [facility] [place] Oxymorphone Confirmation, U Negative Negative 08/16/2023 10:04 AM EDT LABORATORY [facility] [facility] Urine Non-blood Collection / Unknown 08/13/2023 5:18 PM EDT 08/13/2023 5:27 PM EDT Narrative LABORATORY [facility] [place] - 08/16/2023 10:04 AM EDT Cutoff Concentrations: Drug Level Codeine 40 ng/mL Morphine 40 ng/mL Hydrocodone 40 ng/mL Hydromorphone 40 ng/mL Dihydrocodeine 40 ng/mL Oxycodone 50 ng/mL Oxymorphone 50 ng/mL This test was developed and its performance characteristics determined by [employer]. It has not been cleared or approved by the [place] Food and Drug Administration. Yuniel Mohan MD LAB URINE ORDERAB LES LABORATORY [facility] [facility] [address] [place] [address] * (ABNORMAL) THC METABOLITE, URINE CONFIRMATION (08/13/2023 5:18 PM EDT) Methodology LC-MS/MS 08/16/2023 10:12 AM EDT LABORATORY [facility] [place] THC-COOH Confirmation, U >400(H) Negative ng/mL 08/16/2023 10:12 AM EDT LABORATORY [facility] [facility] Urine Non-blood Collection / Unknown 08/13/2023 5:18 PM EDT 08/13/2023 5:27 PM EDT Narrative LABORATORY [facility] [place] - 08/16/2023 10:12 AM EDT Cutoff Concentration: Drug Level THC-COOH 10 ng/mL This test was developed and its performance characteristics determined by [employer]. It has not been cleared or approved by the US Food and Drug Administration. Yuniel Mohan MD LAB URINE ORDERAB LES LABORATORY [facility] [address] [place] [address] * (ABNORMAL) AMPHETAMINES, URINE CONFIRMATION (08/13/2023 5:18 PM EDT) Pathologist [facility] Methodology LC-MS/MS 08/15/2023 11:24 AM EDT LABORATORY [facility] [place] Amphetamine Confirmation, U >5,000(H) Negative ng/mL 08/15/2023 11:24 AM EDT LABORATORY [facility] Methamphetamine Confirmation, U >5,000(H) Negative ng/mL 08/15/2023 11:24 AM EDT LABORATORY [facility] [facility] Phentermine Confirmation, U Negative Negative 08/15/2023 11:24 AM EDT LABORATORY [facility] Pseudoephedrine Confirmation, U Negative Negative 08/15/2023 11:24 AM EDT LABORATORY [facility] MDMA Confirmation, U Negative Negative 08/15/2023 11:24 AM EDT LABORATORY [facility] Urine Non-blood Collection / Unknown 08/13/2023 5:18 PM EDT 08/13/2023 5:27 PM EDT Narrative LABORATORY [facility] - 08/15/2023 11:24 AM EDT Cutoff Concentrations: Drug Level Amphetamine 50 ng/mL Methamphetamine 50 ng/mL Phentermine 50 ng/mL Pseudoephedrine 50 ng/mL MDMA/Ecstasy 50 ng/mL This test was developed and its performance characteristics determined by [employer]. It has not been cleared or approved by the [place] Food and Drug Administration. Yuniel Mohan MD LAB URINE ORDERAB LES Performing Organization Address City/[facility]/ZIP Co de Phone Number LABORATORY [facility] [address] [place] [address] * (ABNORMAL) TOXICOLOGY, URINESCREEN W/ CONFIRMATION (08/13/2023 5:18 PM EDT) [facility] Amphetamines Screen, U Positive(A) Negative 08/13/2023 5:56 PM EDT LABORATORY [facility] Benzodiazepines Screen, U Negative Negative 08/13/2023 5:56 PM EDT LABORATORY C Cannabinoids Screen, U Positive(A) Negative 08/13/2023 5:56 PM EDT LABORATORY C Cocaine Metabolite Screen, U Negative Negative 08/13/2023 5:56 PM EDT LABORATORY C Fentanyl Screen, U Negative Negative 2023 5:56 PM EDT LABORATORY C Hydrocodone Screen, U Negative Negative 08/13/2023 5:56 PM EDT LABORATORY C Methadone Metabolite Screen, U Negative Negative 08/13/2023 5:56 PM EDT LABORATORY C Morphine/Codeine Screen, U Positive(A) Negative 08/13/2023 5:56 PM EDT LABORATORY C Oxycodone Screen, U Negative Negative 08/13/2023 5:56 PM EDT LABORATORY [facility] Urine Non-blood Collection / Unknown 08/13/2023 5:18 PM EDT 08/13/2023 5:27 PM EDT Narrative LABORATORY C - 08/13/2023 5:56 PM EDT Cutoff Concentrations: Drug Level Amphetamines 500 ng/mL Benzodiazepines 100 ng/mL Cannabinoids 50 ng/mL Cocaine Metabolite 150 ng/mL Fentanyl 1 ng/mL Hydrocodone / Hydromorphone 300 ng/mL Methadone Metabolite 100 ng/mL Morphine / Codeine 300 ng/mL Oxycodone / Oxymorphone 100 ng/mL Screening results are presumptive and can only be used for medical purposes. Positive screening results are reflexed to confirmatory testing. Yuniel Mohan MD LAB URINE ORDERAB LES Performing Organization Address City/[facility]/ZIP Co de Phone Number LABORATORY [facility] [address] [place] [address] * CULTURE, URINE, QUANTITATIVE (08/13/2023 5:18 PM EDT) Culture Growth No significant growth 08/14/2023 1:30 PM EDT LABORATORY [facility] Urine Urine specimen obtained by clean catch procedure / Unknown Non-blood Collection / Unknown 08/13/2023 5:18 PM EDT 08/13/2023 5:29 PM EDT Yuniel Mohan MD LAB MICRO - GENER AL ORDERABLES LABORATORY [facility] [place] [address] [facility] [place] [id number] * (ABNORMAL) URINALYSIS, REFLEX TO MICROSCOPIC (08/13/2023 5:18 PM EDT) Color, Urine Light Yellow Colorless, Light Yellow, Yellow, Dark Yellow 08/13/2023 5:41 PM EDT LABORATORY C Clarity, Urine Clear Clear 08/13/2023 5:41 PM EDT LABORATORY C Glucose, Urine Negative Negative mg/dL 08/13/2023 5:41 PM EDT LABORATORY C Bilirubin, Urine Negative Negative 08/13/2023 5:41 PM EDT LABORATORY C Ketone, Urine 15(A) Negative mg/dL 08/13/2023 5:41 PM EDT LABORATORY C Specific [place], Urine >1.050(H) 1.003 - 1.030 08/13/2023 5:41 PM EDT LABORATORY C Blood, Urine Negative Negative 08/13/2023 5:41 PM EDT LABORATORY C pH, Urine 6.5 5.0 - 7.5 Units 08/13/2023 5:41 PM EDT LABORATORY C Protein, Urine 30(A) Negative mg/dL 08/13/2023 5:41 PM EDT LABORATORY C Urobilinogen, Urine 2.0(A) Normal mg/dL 08/13/2023 5:41 PM EDT LABORATORY C Nitrite, Urine Negative Negative 08/13/2023 5:41 PM EDT LABORATORY C Esterase, Urine Negative Negative 08/13/2023 5:41 PM EDT LABORATORY [facility] RBC, Urine 0-2 0 - 2 /HPF 08/13/2023 5:41 PM EDT LABORATORY [facility] WBC, Urine 0-2 0 - 2 /HPF 08/13/2023 5:41 PM EDT LABORATORY [facility] Bacteria, Urine 0-25 0 - 25 /HPF 08/13/2023 5:41 PM EDT LABORATORY [facility] Urine Non-blood Collection / Unknown 08/13/2023 5:18 PM EDT 08/13/2023 5:27 PM EDT Yuniel Mohan MD LAB URINE ORDERAB [facility] [address] [place] [address] * XR CHEST 1 VIEW (08/13/2023 1:41 PM EDT) Anatomical Region Laterality Modality Chest Computed Radiogr aphy 08/13/2023 2:26 PM EDT Impressions 08/13/2023 2:23 PM EDT IMPRESSION: No acute cardiopulmonary disease. Narrative 08/13/2023 2:23 PM EDT EXAM: EXAM: XR CHEST 1 VIEW DATE TIME: 08/13/2023 - 08/13/2023 1:41 pm HISTORY: 63 y/o M trauma COMPARISON: None FINDINGS: No focal consolidation, pleural effusion, or pneumothorax. Cardiac silhouette is normal in size. No acute osseous abnormality. Procedure Note Milagro De Santiago MD - 08/13/2023 EXAM: EXAM: XR CHEST 1 VIEW DATE TIME: 08/13/2023 - 08/13/2023 1:41 pm HISTORY: 63 y/o M trauma COMPARISON: None FINDINGS: No focal consolidation, pleural effusion, or pneumothorax. Cardiac silhouette is normal in size. No acute osseous abnormality. IMPRESSION IMPRESSION: No acute cardiopulmonary disease. Gerardo Arango MD RADIOLOGY ([facility]) * SARS-COV-2 (COVID-19), NAAT (08/13/2023 1:38 PM EDT) SARS-CoV-2 (COVID-19) Result Negative Negative 08/13/2023 2:58 PM EDT LABORATORY [facility] Comment: 2019 Novel Coronavirus not detected. This express test was developed and its performance characteristics determined by [employer]. It has not been cleared or approved by the U.S. Food and Drug Administration (FDA). FDA does not require this test to go thru premarket FDA review. This test is used for clinical purposes. It should not be regarded as investigational or for research. This laboratory is certified under the Clinical Laboratory Improvement Amendments (CLIA) as qualified to perform high complexity clinical laboratory testing. This test is a nucleic acid amplification test (NAAT), a reverse transcriptase polymerase chain reaction (RT-PCR) test, or a Centers for Disease Control- acceptable equivalent. The test is performed in a high complexity Clinical Laboratory Improvement Amendments-(CLIA) certified laboratory. The test is acceptable for SARS-CoV-2 diagnosis, surveillance, and travel within the [place] and to most countries. Please check with local testing authorities about requirements before travel. The validation of bronchial specimens, tracheal aspirates, and sputum for this assay was developed and performance characteristics determined by [employer]. The validation of alternate specimen types has not been cleared or approved by the U.S. Food and Drug Administration (FDA). It has been determined that such clearance is not necessary. Upper Respiratory Mid-turbinate nasal swab / Unknown Non-blood Collection / Unknown 08/13/2023 1:38 PM EDT 08/13/2023 1:52 PM EDT Huseyin Shetty PA-C LAB MICRO - G ENERAL ORDERABLES Performing Organization Address City/State/[facility] Co de Phone Number LABORATORY [facility] [address] [place] [address] * RADIOLOGY EXAM - CT (IMAGES ONLY, NO REPORT) (08/13/2023 1:24 PM EDT) Narrative Scheduling, Silent - 08/13/2023 1:24 PM EDT This is an imaging study not interpreted or resulted by a [facility] or [facility] contracted radiologist. Gerardo Arango MD RAD CT * RADIOLOGY EXAM - CT (IMAGES ONLY, NO REPORT) (08/13/2023 1:24 PM EDT) Narrative Scheduling, Silent - 08/13/2023 1:24 PM EDT This is an imaging study not interpreted or resulted by a [facility] or [facility] contracted radiologist. Gerardo Arango MD RAD CT * ABO/RH (08/13/2023 1:20 PM EDT) ABO A 08/13/2023 2:35 PM EDT LAB[facility]ATORY [facility] [place] BLOOD BANK Rh Positive 08/13/2023 2:35 PM EDT LABORATORY [facility] [place] BLOOD BANK Blood Venous blood specimen / Unknown Venipuncture / Unknown 08/13/2023 1:20 PM EDT 08/13/2023 1:26 PM EDT Yuniel Mohan MD LAB BLOOD BANK TE ST ORDERABLES LABORATORY [facility] BLOOD BANK [address] [place] [address] * (ABNORMAL) DIFFERENTIAL, AUTOMATED (08/13/2023 1:20 PM EDT) WBC 12.05(H) 4.00 - 10.80 K/uL 08/13/2023 1:40 PM EDT LABORATORY [facility] Neutrophils % 82.1(H) 40.0 - 75.0 % 08/13/2023 1:40 PM EDT LABORATORY [facility] Lymphocytes % 11.0(L) 18.0 - 42.0 % 08/13/2023 1:40 PM EDT LABORATORY [facility] Monocytes % 6.5 1.0 - 11.0 % 08/13/2023 1:40 PM EDT LABORATORY [facility] Eosinophils % 0.0 0.0 - 6.0 % 08/13/2023 1:40 PM EDT LAB[facility]ATORY [facility] Basophils % 0.1 0.0 - 2.0 % 08/13/2023 1:40 PM EDT LAB[facility]ATORY [facility] Immature Granulocytes % 0.3 0.0 - 2.0 % 08/13/2023 1:40 PM EDT LABORATORY [facility] Absolute Neutrophils 9.90(H) 1.80 - 7.70 K/uL 08/13/2023 1:40 PM EDT LABORATORY [facility] Absolute Lymphocytes 1.32 1.00 - 4.80 K/ul 08/13/2023 1:40 PM EDT LABORATORY [facility] Absolute Monocytes 0.78 0.00 - 1.10 K/uL 08/13/2023 1:40 PM EDT LAB[facility]ATORY [facility] Absolute Eosinophils 0.00 0.00 - 0.70 K/uL 08/13/2023 1:40 PM EDT LAB[facility]ATORY [facility] Absolute Basophils 0.01 0.00 - 0.20 K/uL 08/13/2023 1:40 PM EDT LAB[facility]ATORY [facility] Absolute Immature Granulocytes 0.04 0.00 - 0.20 K/uL 08/13/2023 1:40 PM EDT LAB[facility]ATORY [facility] Blood Venous blood specimen / Unknown Venipuncture / Unknown 08/13/2023 1:20 PM EDT 08/13/2023 1:27 PM EDT Yuniel Mohan MD LAB BLOOD ORDERAB LES Performing Organization Address City/State/[facility] Co de Phone Number LAB[facility]ATORY [facility] [address] [place] [address] * (ABNORMAL) CBC (08/13/2023 1:20 PM EDT) WBC 12.05(H) 4.00 - 10.80 K/uL 08/13/2023 1:40 PM EDT LAB[facility]ORY [facility] RBC 4.68 4.50 - 5.25 M/uL 08/13/2023 1:40 PM EDT LAB[facility]ORY [facility] HGB 14.4 14.0 - 16.8 g/dL 08/13/2023 1:40 PM EDT LAB[facility]ORY [facility] HCT 40.9 40.0 - 48.4 % 08/13/2023 1:40 PM EDT LAB[facility]ORY [facility] MCV 87.4 82.0 - 99.5 fL 08/13/2023 1:40 PM EDT LAB[facility]ORY [facility] MCH 30.8 27.0 - 34.0 pg 08/13/2023 1:40 PM EDT LAB[facility]ORY [facility] MCHC 35.2 32.0 - 36.0 g/dL 08/13/2023 1:40 PM EDT LAB[facility]ORY [facility] RDW 13.2 11.5 - 15.5 % 08/13/2023 1:40 PM EDT LABORATORY [facility] PLT 310 140 - 400 K/uL 08/13/2023 1:40 PM EDT LABORATORY [facility] MPV 8.7 6.6 - 11.1 fL 08/13/2023 1:40 PM EDT LABORATORY [facility] nRBCs 0 <=0 /100 WBCs 08/13/2023 1:40 PM EDT LABORATORY [facility] [facility] Blood Venous blood specimen / Unknown Venipuncture / Unknown 08/13/2023 1:20 PM EDT 08/13/2023 1:27 PM EDT Yuniel Mohan MD LAB BLOOD ORDERAB LES Performing Organization Address [facility] Co de Phone Number LABORATORY [facility] [address] [place] [address] * HIV ANTIGEN & ANTIBODY SCREEN W/ CONFIRMATION (08/13/2023 1:20 PM EDT) Pathologist [facility] HIV Antigen & Antibody Negative Negative 08/13/2023 2:13 PM EDT LABORATORY [facility] Comment:Negative HIV-1/2 ant igen and antibody screening tset results usually indicate the absence of HIV-1 and HIV-2 infection. However, such negative results do not rule-out acute HIV infection. If acute HIV-1 infection is highly suspected, it is recommended that a specimen be submitted for detection of HIV-1 RNA. Blood Venous blood specimen / Unknown Venipuncture / Unknown 08/13/2023 1:20 PM EDT 08/13/2023 1:27 PM EDT Yuniel Mohan MD LAB BLOOD ORDERAB LES Performing Organization Address City/[facility] Co de Phone Number LABORATORY [facility] [address] [place] [address] * TYPE AND SCREEN (08/13/2023 1:20 PM EDT) ABO A 08/13/2023 2:13 PM EDT LABORATORY [facility] BLOOD BANK Rh Positive 08/13/2023 2:13 PM EDT LABORATORY [facility] BLOOD BANK Red Blood Cell Antibody Screen Negative 08/13/2023 2:13 PM EDT LABORATORY [facility] BLOOD BANK Specimen Expiration Date 08/16/2023 23:59 08/13/2023 2:13 PM EDT LABORATORY [facility] BLOOD BANK Blood Venous blood specimen / Unknown Venipuncture / Unknown 08/13/2023 1:20 PM EDT 08/13/2023 1:26 PM EDT Yuniel Mohan MD LAB BLOOD BANK TE ST ORDERABLES LABORATORY [facility] BLOOD BANK [address] [place] [address] * LACTATE (08/13/2023 1:20 PM EDT) [facility] Lactate 1.3 0.4 - 2.0 mmol/L 08/13/2023 1:48 PM EDT LABORATORY [facility] Blood Venous blood specimen / Unknown Venipuncture / Unknown 08/13/2023 1:20 PM EDT 08/13/2023 1:27 PM EDT Yuniel Mohan MD LAB BLOOD ORDERAB LES Performing Organization Address City/[facility] Co de Phone Number LABORATORY [facility] [address] [place] [address] * ETHANOL, MEDICAL (08/13/2023 1:20 PM EDT) [facility] ETHANOL, MEDICAL Negative Negative 08/13/2023 1:49 PM EDT LABORATORY [facility] Blood Venous blood specimen / Unknown Venipuncture / Unknown 08/13/2023 1:20 PM EDT 08/13/2023 1:26 PM EDT Yuniel Mohan MD LAB BLOOD ORDERAB LES Performing Organization Address City/[facility] Co de Phone Number LABORATORY [facility] [address] [place] [address] * (ABNORMAL) BASIC METABOLIC PANEL (08/13/2023 1:20 PM EDT) [facility] BUN 17 6 - 20 mg/dL 08/13/2023 1:49 PM EDT LABORATORY C Creatinine 0.5(L) 0.6 - 1.2 mg/dL 08/13/2023 1:49 PM EDT LABORATORY [facility] Estimated Glomerular Filtration Rate >90 >=60 mL/min 08/13/2023 1:49 PM EDT LABORATORY [facility] [facility] Comment:eGFR is calculated b ased on the CKD-EPI 2020 equation Sodium 132(L) 135 - 146 mmol/L 08/13/2023 1:49 PM EDT LABORATORY [facility] Potassium 3.9 3.5 - 5.1 mmol/L 08/13/2023 1:49 PM EDT LAB[facility]ATORY [facility] Chloride 98 98 - 107 mmol/L 08/13/2023 1:49 PM EDT LAB[facility]ATORY [facility] CO2 23 22 - 32 mmol/L 08/13/2023 1:49 PM EDT LABORATORY C Anion Gap 11 7 - 15 mmol/L 08/13/2023 1:49 PM EDT LABORATORY C Glucose 126(H) 70 - 120 mg/dL 08/13/2023 1:49 PM EDT LABORATORY C Calcium 8.9 8.4 - 10.2 mg/dL 08/13/2023 1:49 PM EDT LABORATORY C Blood Venous blood specimen / Unknown Venipuncture / Unknown 08/13/2023 1:20 PM EDT 08/13/2023 1:26 PM EDT Yuniel Mohan MD LAB BLOOD ORDERAB LES Performing Organization Address City/State/[facility] Co de Phone Number LABORATORY [facility] [address] [place] [address] * AST (08/13/2023 1:20 PM EDT) AST 22 10 - 50 U/L 08/13/2023 1:49 PM EDT LABORATORY [facility] Comment:Result may be falsel y elevated due to hemolysis. Blood Venous blood specimen / Unknown Venipuncture / Unknown 08/13/2023 1:20 PM EDT 08/13/2023 1:26 PM EDT Yuniel Mohan MD LAB BLOOD ORDERAB LES LABORATORY [facility] [address] [place] [address] * APTT (08/13/2023 1:20 PM EDT) aPTT 29 21 - 38 seconds 08/13/2023 1:56 PM EDT LABORATORY [facility] Blood Venous blood specimen / Unknown Venipuncture / Unknown 08/13/2023 1:20 PM EDT 08/13/2023 1:27 PM EDT Narrative LABORATORY [facility] - 08/13/2023 1:56 PM EDT Anticoagulation may affect testing. Refer to [employer] Test Catalog for a list of effects. Yuniel Mohan MD LAB BLOOD ORDERAB LES Performing Organization Address City/[facility] Co de Phone Number LABORATORY [facility] [address] [place] [address] * PT INR (08/13/2023 1:20 PM EDT) Prothrombin Time 13.0 11.6 - 15.2 seconds 08/13/2023 1:55 PM EDT LABORATORY [facility] INR 1.0 0.8 - 1.2 08/13/2023 1:55 PM EDT LABORATORY [facility] Blood Venous blood specimen / Unknown Venipuncture / Unknown 08/13/2023 1:20 PM EDT 08/13/2023 1:27 PM EDT Narrative LAB[facility]ATORY [facility] - 08/13/2023 1:55 PM EDT Warfarin Therapy INR: 2.0-3.0 conventional anticoagulation INR: 2.5-3.5 high intensity anticoagulation Yuniel Mohan MD LAB BLOOD ORDERAB LES LABORATORY [facility] [address] [place] [address] documented in this encounter Visit Diagnoses Diagnosis Fall from ladder- Primary Accidental fall from ladder Trauma Injury, other and unspecified, unspecified site SDH (subdural hematoma) (HCC) Subdural hemorrhage SAH (subarachnoid hemorrhage) (HCC) Subarachnoid hemorrhage Closed head injury, initial encounter Bradycardia Other specified cardiac dysrhythmias Intracranial bleed (HCC) Unspecified intracranial hemorrhage Intracranial bleed (HCC) Unspecified intracranial hemorrhage documented in this encounter Administered Medications Inactive Administered Medications - up to 3 most recent administrations Medication Order MAR Action Action Date Dose Rate Site Acetaminophen (Tylenol) tab 975 mg 975 mg, Oral, Q6H, First dose on Sun08/13/23 at 1400, Until Discontinued, Maximum 4 g acetaminophen/day. Avoid in patients with severe hepatic impairment or severe active liver disease. Use for 5 days. Given 08/16/2023 12:34 PM EDT 975 mg Given 08/16/2023 5:20 AM EDT 975 mg Given 08/15/2023 11:50 PM EDT 975 mg bacitracin zinc ointment Topical, BID (.AM/PM), First dose on Sun08/13/23 at 1400, Until Discontinued, Apply to: scalp and elbow lacerations Given 08/16/2023 8:35 AM EDT Given 08/15/2023 10:09 PM EDT Given 08/15/2023 8:47 AM EDT Docusate Sodium (Colace) cap 100 mg 100 mg, Oral, BID (.AM/PM), First dose on Sun08/13/23 at 2100, Until Discontinued, For oral administration ONLY, if route of administration is other than oral and alternative product must be ordered. Given 08/16/2023 8:34 AM EDT 100 mg Given 08/15/2023 10:08 PM EDT 100 mg Given 08/15/2023 8:47 AM EDT 100 mg hEParin inj 5,000 Units 5,000 Units, Subcutaneous, Q8H, First dose on Sun08/14/23 at 1400, Until Discontinued Given 08/16/2023 5:20 AM EDT 5,000 Units Abdomen Left Upper Given 08/15/2023 10:08 PM EDT 5,000 Units Abdomen Right Lower Given 08/15/2023 12:54 PM EDT 5,000 Units Abdomen Right Upper hydrALAZINE (Apresoline) inj 10 mg 10 mg, Intravenous, Q4H PRN Hypertension, Other, For SBP > 160mmHg refractory to labetalol or in setting of HR < 60 (2nd line), Starting on Sun08/13/23 at 1512, Until Sun08/16/23 at 1851 levETIRAcetam (Keppra) 500 mg in 100 mL ivpb *LOCKED DOSE* 500 mg, IV Piggyback, BID (.AM/PM), 13 doses, First dose (after last modification) on Sun08/13/23 at 2100, Last dose on Sun08/19/23 at 2100, at 600 mL/hr Administer over 10 Minutes New Bag 08/14/2023 8:15 AM EDT 500 mg 600 mL/hr New Bag 08/13/2023 9:45 PM EDT 500 mg 600 mL/hr levETIRAcetam (Keppra) tab 500 mg 500 mg, Oral, BID (.AM/PM), First dose on Sun08/14/23 at 2100, Until Discontinued Given 08/16/2023 8:34 AM EDT 500 mg Given 08/15/2023 10:08 PM EDT 500 mg Given 08/15/2023 8:47 AM EDT 500 mg NSS infusion Intravenous, at 75 mL/hr, CONTINUOUS, Starting on Sun08/13/23 at 1400, Until Sun08/14/23 at 1047 Restarted 08/14/2023 8:25 AM EDT 75 mL/hr New Bag 08/14/2023 2:51 AM EDT 75 mL/hr Rate Verify 08/14/2023 12:03 AM EDT 75 mL/hr ondansetron (Zofran) inj 4 mg 4 mg, IV Push, Q6H PRN Other, May use for nausea or vomiting if patient unable to take oral ondansetron, Starting on Sun08/13/23 at 1322, Until Sun08/16/23 at 1851 ondansetron ODT (Zofran) tab 4 mg 4 mg, On Tongue, Q6H PRN Nausea, Vomiting, Starting on Sun08/13/23 at 1322, Until Sun08/16/23 at 1851 Given 08/16/2023 12:37 PM EDT 4 mg Given 08/13/2023 5:15 PM EDT 4 mg oxyCODONE (Oxy IR) tab 10 mg 10 mg, Oral, Q4H PRN Pain, Severe, Starting on Sun08/13/23 at 1322, Until Sun08/16/23 at 1851, Hold for somnolence or respiratory rate less than 10 Given 08/16/2023 3:40 AM EDT 10 mg Given 08/15/2023 2:03 PM EDT 10 mg Given 08/15/2023 8:47 AM EDT 10 mg oxyCODONE (Oxy IR) tab 5 mg 5 mg, Oral, Q4H PRN Pain, Moderate, Starting on Sun08/13/23 at 1322, Until Sun08/16/23 at 1851, Hold for somnolence or respiratory rate less than 10 Given 08/15/2023 10:15 PM EDT 5 mg potassium and sodium phosphate (Phos-Nak) oral powder 1 Packet 1 Packet, Oral, ONCE, On Sun08/14/23 at 0845, For 1 dose, Mix 1 packet in 2.5 ounces (75 mL) of water, stir well and administer promptly. 1 packet contains Phosphorus 250 mg (~8 mMoles) + potassium 280 mg (~7.125 mEq) + sodium 160mg (~7.125 mEq) Given 08/14/2023 8:44 AM EDT 1 Packet potassium chloride ER tab 20 mEq 20 mEq, Oral, ONCE, On Sun08/14/23 at 0845, For 1 dose, This med should NOT be Crushed or Chewed Given 08/14/2023 8:44 AM EDT 20 mEq potassium chloride ER tab 40 mEq 40 mEq, Oral, ONCE, On Sun08/15/23 at 0830, For 1 dose, This med should NOT be Crushed or Chewed Given 08/15/2023 8:48 AM EDT 40 mEq senna (Senokot) 2 Tablet 2 Tablet, Oral, BID (.AM/PM), First dose on Sun08/13/23 at 2100, Until Discontinued, hold if patient have loose stool or frequent bowel movements Given 08/16/2023 8:34 AM EDT 2 Tablets Given 08/15/2023 10:08 PM EDT 2 Tablets Given 08/15/2023 8:47 AM EDT 2 Tablets documented in this encounter Active and Recently Administered Medications Times are shown in EDT. Scheduled Medication Order 08/14/2023 08/15/2023 08/16/2023 Acetaminophen (Tylenol) tab 975 mg 975 mg, Oral, Q6H, First dose on Sun08/13/23 at 1400, Until Discontinued, Maximum 4 g acetaminophen/day. Avoid in patients with severe hepatic impairment or severe active liver disease. Use for 5 days. 0003 (Given - Provider: Asuncion Euceda, RN)0555 (Given - Provider: Asuncion Euceda, RN)1107 (Given - Provider: Uvaldo Santamaria, RN)1711 (Given - Provider: Uvaldo Santamaria, RN)2357 (Given - Provider: Fang Guevara, RICKY) 0509 (Given - Provider: Fang Guevara, RN)1254 (Given - Provider: Galdino Smith, RICKY)1702 (Given - Provider: Zahida Arnold RN)2350 (Given - Provider: Nick Huizar, RICKY) 0520 (Given - Provider: Millicent Antonio LPN)1234 (Given - Provider: Yelena Castillo RN) bacitracin zinc ointment Topical, BID (.AM/PM), First dose on Sun08/13/23 at 1400, Until Discontinued, Apply to: scalp and elbow lacerations 0812 (Given - Provider: Uvaldo Santamaria RN)2126 (Given - Provider: Fang Guevara, RICKY) 0847 (Given - Provider: Day Zamarripa, RN)220 (Given - Provider: Nick Huizra, RN) 0835 (Given - Provider: Sandy Schuler, RN) Docusate Sodium (Colace) cap 100 mg 100 mg, Oral, BID (.AM/PM), First dose on Sun08/13/23 at 2100, Until Discontinued, For oral administration ONLY, if route of administration is other than oral and alternative product must be ordered. 0812 (Given - Provider: Uvaldo Santamaria, RICKY)2126 (Given - Provider: Fang Guevara, RICKY) 0847 (Given - Provider: Day Zamarripa, RN)2208 (Given - Provider: Nick Huizar, RN) 0834 (Given - Provider: Sandy Schuler, RICKY) hEParin inj 5,000 Units 5,000 Units, Subcutaneous, Q8H, First dose on Sun08/14/23 at 1400, Until Discontinued 1352 (Given - Provider: Uvaldo Santamaria RN)2126 (Given - Provider: Fang Guevara, RN) 0510 (Given - Provider: Fang Guevara RN)1254 (Given - Provider: Galdino Smith, RICKY)2208 (Given - Provider: Nick Huizar, RN) 0520 (Given - Provider: Millicent Antonio LPN)1400 (Due) levETIRAcetam (Keppra) 500 mg in 100 mL ivpb *LOCKED DOSE* (CANCELED) 500 mg, IV Piggyback, BID (.AM/PM), 13 doses, First dose (after last modification) on Sun08/13/23 at 2100, Last dose on Sun08/19/23 at 2100, at 600 mL/hr Administer over 10 Minutes 0815 (New Bag - Provider: Uvaldo Santamaria RN)0825 (Stopped - Provider: Uvaldo Santamaria, RN)1044 (Stopped - Provider: Uvaldo Santamaria, RN) levETIRAcetam (Keppra) tab 500 mg 500 mg, Oral, BID (.AM/PM), First dose on Sun08/14/23 at 2100, Until Discontinued 2125 (Given - Provider: Fang Guevara, RICKY) 0847 (Given - Provider: Day Zamarripa, RICKY)220 (Given - Provider: Nick Huizar, RICKY) 0834 (Given - Provider: Sandy Schuler, RICYK) potassium and sodium phosphate (Phos-Nak) oral powder 1 Packet (COMPLETED) 1 Packet, Oral, ONCE, On Sun08/14/23 at 0845, For 1 dose, Mix 1 packet in 2.5 ounces (75 mL) of water, stir well and administer promptly. 1 packet contains Phosphorus 250 mg (~8 mMoles) + potassium 280 mg (~7.125 mEq) + sodium 160mg (~7.125 mEq) 0844 (Given - Provider: Uvaldo Santamaria RN) potassium chloride ER tab 20 mEq (COMPLETED) 20 mEq, Oral, ONCE, On Sun08/14/23 at 0845, For 1 dose, This med should NOT be Crushed or Chewed 0844 (Given - Provider: Uvaldo Santamaria RN) potassium chloride ER tab 40 mEq (COMPLETED) 40 mEq, Oral, ONCE, On Sun08/15/23 at 0830, For 1 dose, This med should NOT be Crushed or Chewed 0848 (Given - Provider: Day Zamarripa, RN) senna (Senokot) 2 Tablet 2 Tablet, Oral, BID (.AM/PM), First dose on Sun08/13/23 at 2100, Until Discontinued, hold if patient have loose stool or frequent bowel movements 0812 (Given - Provider: Uvaldo Santamaria, RN)2126 (Given - Provider: Fang Guevara, RICKY) 0847 (Given - Provider: Day Zamarripa, RN)2208 (Given - Provider: Nick Huizar, RICKY) 0834 (Given - Provider: Sandy Schuler, RICKY) Continuous Medication Order 08/14/2023 08/15/2023 08/16/2023 NSS infusion (CANCELED) Intravenous, at 75 mL/hr, CONTINUOUS, Starting on Sun08/13/23 at 1400, Until Sun08/14/23 at 1047 0003 (Rate Verify - Provider: Asuncion Euceda, RICKY)0251 (New Bag - Provider: Asuncion Euceda, RN)0815 (Paused - Provider: Uvaldo Santamaria, RN)0825 (Restarted - Provider: Uvaldo Santamaria, RN)1107 (Stopped - Provider: Uvaldo Santamaria, RN) PRN Medication Order 08/14/2023 08/15/2023 08/16/2023 hydrALAZINE (Apresoline) inj 10 mg 10 mg, Intravenous, Q4H PRN Hypertension, Other, For SBP > 160mmHg refractory to labetalol or in setting of HR < 60 (2nd line), Starting on Sun08/13/23 at 1512, Until Sun08/16/23 at 1851 ondansetron (Zofran) inj 4 mg(Linked Group 1) 4 mg, IV Push, Q6H PRN Other, May use for nausea or vomiting if patient unable to take oral ondansetron, Starting on Sun08/13/23 at 1322, Until Sun08/16/23 at 1851 1237 (See Alternativ e - Provider: Yelena Castillo RN) ondansetron ODT (Zofran) tab 4 mg(Linked Group 1) 4 mg, On Tongue, Q6H PRN Nausea, Vomiting, Starting on 08/13/23 at 1322, Until Bella 08/16/23 at 1851 1237 (Given - Provider: Yelena Castillo, RICKY) oxyCODONE (Oxy IR) tab 10 mg 10 mg, Oral, Q4H PRN Pain, Severe, Starting on 08/13/23 at 1322, Until Bella 08/16/23 at 1851, Hold for somnolence or respiratory rate less than 10 2126 (Given - Provider: Fang Guevara, RICKY) 0847 (Given - Provider: Day Zamarripa, RICKY)1403 (Given - Provider: Galdino Smith, RICKY) 0340 (Given - Provider: Nick Huizar, RICKY) oxyCODONE (Oxy IR) tab 5 mg 5 mg, Oral, Q4H PRN Pain, Moderate, Starting on 08/13/23 at 1322, Until Bella 08/16/23 at 1851, Hold for somnolence or respiratory rate less than 10 2215 (Given - Provider: Nick Huizar, RICKY) Linked Groups Order Group 1: ondansetron ODT (Zofran) tab 4 mgJump to med 4 mg, On Tongue, Q6H PRN Nausea, Vomiting, Starting on 08/13/23 at 1322, Until Bella 08/16/23 at 1851 Or ondansetron (Zofran) inj 4 mgJump to med 4 mg, IV Push, Q6H PRN Other, May use for nausea or vomiting if patient unable to take oral ondansetron, Starting on 08/13/23 at 1322, Until Bella 08/16/23 at 1851 documented in this encounter Advance Directives Latest Code Status on File Code Status Date Activated Date Inactivated Comments Full Code 08/13/2023 1:24 PM 08/16/2023 6:51 PM This order reflects the patients wishes and were consensually agreed upon. Question Answer Comments Discussion of Advance Directives occurred with: Patient
--- OUTSIDE RECORDS SUMMARY | 2023-08-21 01:15 | External Medical Summary | Summary of Care ---
Author Name Unknown Organization [facility] Address [address] [place] [address] Phone [phone] Care Team Providers Care Powersaw Supervisor Name Role Phone Unavailable Primary Care Provider Unavailabl e Reason for Visit * Reason Onset Date Comments Hospital Follow-Up 08/16/2023 [facility] 2 wk MDC f/u needed with [facility] WO. No appt avail. Please assist patient with scheduling. Thank you. Encounter Details Date Type Department Care Team (Late st Contact Info) Description 08/16/2023 Telephone Neurosurgery, [place] [address] [place] [address] Specified, Z No Resource [address] [place] [address] Hospital Follow-Up ([facility] 08/15/23 2 wk ... 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 documented as of this encounter (statuses as of 08/16/2023) Immunizations Name Administration Dates Next Due TDAP (age 11 and older)(Adacel) 08/13/2023 documented as of this encounter Social History Tobacco Use Types Packs/Day Years Used Date Smoking Tobacco: Former Cigarettes 1.5 3 0 06/04/1976 - 06/04/1979 Smokeless Tobacco: Never Alcohol Use Standard Drinks/Week Comments Not Currently 5 (1 standard drink = 0.6 oz pur e alcohol) Sex and Gender Information Value Date Recorded Sex Assigned at Not on file Gender Identity Not on file Sexual Orientation Not on file Job Start Date Occupation Industry Not on file Not on file Not on file documented as of this encounter Functional Status Functional Status Response [...] (15 years old or older) No 08/13/19 24 Cognitive Status Response Date of Assessm ent Because of a physical, menta l, or emotional condition, do you have serious difficulty concentrating, remembering, or making decisions? (5 years old or older) No 08/13/2023 documented as of this encounter Miscellaneous Notes * Telephone Encounter - Evelin Rashid, FARAZNA - 08/16/2023 6:25 AM EDT [facility] 08/15/23 2 wk MDC f/u needed with [facility]. No appt avail. Please assist patient with scheduling. Thank you. Erick Willard 08/13/2023 12:59 PM ED to Hosp-Admission Description: 63 year old male Department: HFAM 6 IP [facility] Message Patient Name: ERICK WILLARD([id number]) Sex: Male : 1960 PCP: None Center: [facility] Types of orders made on 08/15/2023: IP Post Discharge , Lab, Medications Order Date:08/15/2023 Ordering User:GARRICK DESAI [[id number]] Attending Provider:Yuniel Mohan MD [[id number]] Auth orizing Provider: Garrick Desai MD [[id number]] Department:[address][[id number]] Order Specific Information Order: RETURN APPT [CUSTOM: IP355] Order #: [id number]: 1 Priority: Routine Class: Nursing Unit Department (Single Entry) -> Neurosurgery Appt Needed Within: (Specify # of Days, Weeks, Months) -> 2 Wks Provider -> TRAUMATIC BRAIN INJURY MDC Tests Needed Prio r to Appt -> cth wo Released on: 08/15/2023 8:15 AM Priority: Routine Class: Nursing Unit Department (Single Entry) -> Neurosurgery Appt Needed Within: (Specify # of Days, Weeks, Months) -> 2 Wks Provider -> TRAUMATIC BRAIN INJURY MDC Tests Needed Prior to Appt -> cth wo Released on: 08/15/2023 8:15 AM documented in this encounter Plan of Treatment Health Maintenance Due Date Last Done Comments [...] Not on filedocumented as of this encounter Advance Directives Latest Code Status on File Code Status Date Activated Date Inactivated Comments Full Code 08/13/2023 1:24 PM This order reflects the patients wishes and were consensually agreed upon. Question Answer Comments Discussion of Advance Directives occurred with: Patient
--- OUTSIDE RECORDS SUMMARY | 2023-08-21 01:15 | External Medical Summary ---
Author Name Unknown Address Unknown Organization K01:[facility]ORY [facility] - [address] [place] [address] Laboratory Report Ordering Provider Test Date Status ANIL WEISS 08/15/2023 06:39:00 Final Observation Date Value Abnormality Reference (Units ) Status Phosphate 08/15/2023 06:39:00 2.8 2.5-4.8 (m g/dL) Final Performing Location [facility] - [address] [place] [address]
--- OUTSIDE RECORDS SUMMARY | 2023-08-21 01:15 | External Medical Summary | Summary of Care ---
Author Name Unknown Organization [facility] Address [address] [place] [address] Phone [phone] Care Team Providers Care Straight Edger Name Role Phone Unavailable Primary Care Provider Unavailabl e Reason for Referral * Evaluate & Treat - Unlimited Visits (Within 3 days (urgent)) - Pending Review Specialty Diagnoses / Procedures Referred By Mike sewell Referred To Contact Occupational Medicine / Occupational Therapy Diagnoses Traumatic brain injury with loss of consciousness, initial encounter (HCC) Bria Dooley PA-C [address] [place] [address] Referral ID Status Reason Start Date Expiration Date Visits Requested Visits Authorized [id number] Pending Review Specialty Services Required 08/16/[phone] Question Answer Referral Priority Within 3 days (urgent) Where should this appointment be scheduled? [facility] Recent fall from [employer], TBI * Evaluate & Treat - Unlimited Visits (Within 3 days (urgent)) - Pending Review Specialty Diagnoses / Procedures Referred By Contlan t Referred To Contact Physical Therapy / Physical Medicine And Rehab Diagnoses Traumatic brain injury with loss of consciousness, initial encounter (HCC) Bria Dooley PA-C [address] [place] [address] Referral ID Status Reason Start Date Expiration Date Visits Requested Visits Authorized [id number] Pending Review Specialty Services Required 08/16/[phone] Question Answer Referral Priority Within 3 days (urgent) Where should this appointment be scheduled? [facility] Shaw Recent fall from [employer], TBI Reason for Visit * Reason Onset Date Comments Referral 08/16/2023 Encounter Details Date Type Department Care Team (G[place] st Contact Info) Description 08/16/2023 Telephone General Surgery, [place] [address] [place] [address] Bria Dooley PA-C [address] [place] [address] Referral Allergies No known active allergiesdocumented as of this encounter (statuses as of 08/16/2023) Medications Medication Sig Dispensed Refills Start Date [...] encounter Miscellaneous Notes * Telephone Encounter - Bria Dooley PA-C - 08/16/2023 2:40 PM EDT Encounter for PT/OT referrals. documented in this encounter Plan of Treatment Scheduled Referrals Name Type Priority Associated Diagnoses Order Schedule PHYSICAL THERAPY REFERRAL OP Referral Within 3 days (urgent) Traumatic brain injury with loss of consciousness, initial encounter (HCC) Ordered: 08/16/2023 OCCUPATIONAL THERAPY REFERRAL OP Referral Within 3 days (urgent) Traumatic brain injury with loss of consciousness, initial encounter (HCC) Ordered: 08/16/2023 Health Maintenance Due Date Last Done Comments [...] Not on filedocumented as of this encounter Visit Diagnoses Diagnosis Traumatic brain injury with loss of consciousness, initial encounter (HCC)- Primary documented in this encounter Advance Directives Latest Code Status on File Code Status Date Activated Date Inactivated Comments Full Code 08/13/2023 1:24 PM This order reflects the patients wishes and were consensually agreed upon. Question Answer Comments Discussion of Advance Directives occurred with: Patient
--- OUTSIDE RECORDS SUMMARY | 2023-08-21 01:15 | External Medical Summary ---
Author Name Unknown Address Unknown Organization K01:LABORATORY [facility] - [facility] [address] [place] [address] Laboratory Report Ordering Provider Test Date Status ANIL WEISS 08/16/2023 06:58:00 Final Observation Date Value Abnormality Reference (Units ) Status BUN 08/16/2023 06:58:00 14 6-20 (mg/dL) Final Creatinine 08/16/2023 06:58:00 0.5 Below low normal 0.6-1.2 (mg/dL) Final Glomerular filtration rate/1.73 sq M.predicted [Volume Rate/Area] in Serum, Plasma or Blood by Creatinine-based formula (CKD-EPI) 08/16/2023 06:58:00 >90 >=60 (mL/min) Final eGFR is calculated based on the CKD-EPI 2020 equation SODIUM 08/16/2023 06:58:00 131 Below low normal 135 -146 (mmol/L) Final Potassium 08/16/2023 06:58:00 3.9 3.5-5.1 (m mol/L) Final Cl 08/16/2023 06:58:00 98 98-107 (mm ol/L) Final CO2 08/16/2023 06:58:00 20 Below low normal 22- 32 (mmol/L) Final Anion gap 08/16/2023 06:58:00 13 7-15 (mmol /L) Final Glucose 08/16/2023 06:58:00 101 70-120 (mg /dL) Final Calcium 08/16/2023 06:58:00 8.7 8.4-10.2 ( mg/dL) Final Performing Location LABORATORY [facility] - [address] [place] [address]
--- OUTSIDE RECORDS SUMMARY | 2023-08-21 01:15 | External Medical Summary ---
Author Name Unknown Address Unknown Organization K01:LABORATORY [facility] - [facility] [address] [place] [address] Laboratory Report Ordering Provider Test Date Status ANIL WEISS 08/15/2023 06:39:00 Final Observation Date Value Abnormality Reference (Units ) Status BUN 08/15/2023 06:39:00 13 6-20 (mg/dL) Final Creatinine 08/15/2023 06:39:00 0.5 Below low normal 0.6-1.2 (mg/dL) Final Glomerular filtration rate/1.73 sq M.predicted [Volume Rate/Area] in Serum, Plasma or Blood by Creatinine-based formula (CKD-EPI) 08/15/2023 06:39:00 >90 >=60 (mL/min) Final eGFR is calculated based on the CKD-EPI 2020 equation SODIUM 08/15/2023 06:39:00 132 Below low normal 135 -146 (mmol/L) Final Potassium 08/15/2023 06:39:00 3.4 Below low normal 3.5 -5.1 (mmol/L) Final Cl 08/15/2023 06:39:00 97 Below low normal 98- 107 (mmol/L) Final CO2 08/15/2023 06:39:00 23 22-32 (mmo l/L) Final Anion gap 08/15/2023 06:39:00 12 7-15 (mmol /L) Final Glucose 08/15/2023 06:39:00 99 70-120 (mg /dL) Final Calcium 08/15/2023 06:39:00 8.8 8.4-10.2 ( mg/dL) Final Performing Location LABORATORY [facility] - [address] [place] [address]
--- OUTSIDE RECORDS SUMMARY | 2023-08-21 01:15 | External Medical Summary | Summary of Care ---
Author Name Unknown Organization [facility] Address [address] [place] [address] Phone [phone] Care Team Providers Care Credit Union Manager Name Role Phone Unavailable Primary Care Provider Unavailabl e Reason for Visit * Auth/Cert Specialty Diagnoses / Procedures Referred By Mike t Referred To Contact Diagnoses Trauma Gerardo Arango MD [address] [place] [address] Ticu 5 Ip [facility] [address] [place] [address] Referral ID Status Reason Start Date Expiration Date Visits Re quested Visits Authorized [id number] Encounter Details Date Type Department Care Team (Latest Contact Info) Description 08/14/2023 12:56 PM EDT - 08/14/2023 11:59 PM EDT Hospital Encounter Cardiac Studies [facility] [address] [place] [address] Discharge Disposition: Home - Self Care Allergies No known active allergiesdocumented as of this encounter (statuses as of 08/15/2023) Medications No known medicationsdocumented as of this encounter (statuses as of 08/15/2023) Active Problems Problem Noted Date Diagnosed Date Fall from ladder 08/13/2023 Intracranial bleed 08/13/2023 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 documented as of this encounter (statuses as of 08/15/2023) Immunizations Name Administration Dates Next Due TDAP [...] No 08/13/2023 documented as of this encounter Plan of Treatment Health Maintenance [...] Procedure Name Priority Date/Time Associated Diagnosis Comments ECHO, COMPLETE (2D), TRANS-THORACIC STAT 08/14/2023 1:32 PM EDT Bradycardia documented in this encounter Visit Diagnoses Diagnosis Fall from ladder, initial encounter- Primary documented in this encounter Administered Medications Inactive Administered Medications - up to 3 most recent administrations Medication Order MAR Action Action Date Dose Rate Site perflutren lipid microsphere inj SUSP 1.956 mg 1.956 mg, Intravenous, ONCE PRN Other, For Echo Only - Suboptimal Echo Images, Starting on 08/14/23 at 1323, Until 08/14/23 at 1522, For 2 hours, Administer IVP over 45 seconds, Cardiac Studies_HODHOV Given 08/14/2023 1:24 PM EDT 1.956 mg documented in this encounter Advance Directives Latest Code Status on File Code Status Date Activated Date Inactivated Comments Full Code 08/13/2023 1:24 PM This order reflects the patients wishes and were consensually agreed upon. Question Answer Comments Discussion of Advance Directives occurred with: Patient
--- OUTSIDE RECORDS SUMMARY | 2023-08-21 01:15 | External Medical Summary | Summary of Care ---
Author Name Unknown Organization [facility] Address [address] [place] [address] Phone [phone] Care Team Providers Care Mammal Control Agent Name Role Phone Unavailable Primary Care Provider Unavailabl e Reason for Visit * Reason Onset Date Comments Hospital Follow-Up 08/16/2023 [facility] 2 wk MDC f/u needed with [facility] WO. No appt avail. Please assist patient with scheduling. Thank you. Encounter Details Date Type Department Care Team (Late st Contact Info) Description 08/16/2023 Telephone Neurosurgery, [place] [address] [place] [address] Specified, Z No Resource [address] [place] [address] Hospital Follow-Up ([facility] 08/15/23 2 wk ... Allergies No known [...] Notes * Telephone Encounter - Evelin Rashid, FARZANA - 08/16/2023 6:25 AM EDT [facility] 08/15/23 2 wk MDC f/u needed with [facility] WO. No appt avail. Please assist patient with scheduling. Thank you. Also has 2nd order for Neurosurg. Erick Willard 08/13/2023 12:59 PM ED to Hosp-Admission Description: 63 year old male Department: HFAM 6 IP [facility] [place] Patient Name: ERICK WILLARD([id number]) Sex: Male : 1960 PCP: None Center: [facility] Types of orders made on 08/16/2023: IP Post Discharge , Lab Order Date:08/16/2023 Ordering User:REN CARUSO [[id number]] Attending Provider:Yuniel Mohan MD [[id number]] Authorizing Provide r: Ren Caruso PA-C [[id number]] Department:HFAM 6 IP [facility][[id number]] Order Specific Information Order: RETURN APPT [CUSTOM: IP355] Order #: [id number]: [id number] Priority: Routine Class: Nursing Unit Comment:TBI clinic with CT scan Department (Single Entry) -> Neurosurgery Appt Needed Within: (Specify # of Days, Weeks, Months) -> 2 Wks Released on: 08/16/2023 11:22 AM Priority: Routine Class: Nursing Unit Comment:TBI clinic with CT scan Department (Single Entry) -> Neurosurgery Appt Needed Within: (Specify # of Days, Weeks, Months) -> 2 Wks Released on: 08/16/2023 11:22 AM Erick Willard 08/13/2023 12:59 PM ED to Hosp-Admission Description: 63 year old male Department: HFAM 6 IP [facility] Message Patient Name: ERICK WILLARD([id number]) Sex: Male : 1960 PCP: None Center: [facility] Types of orders made on 08/15/2023: IP Post Discharge , Lab, Medications Order Date:08/15/2023 Ordering User:GARRICK DESAI [[id number]] Attending Provider:Yuniel Mohan MD [[id number]] Auth orizing Provider: Garrick Desai MD [[id number]] Department:TICU 5 IP [facility][[id number]] Order Specific Information Order: RETURN APPT [CUSTOM: IP355] Order #: [id number]: [id number] Priority: Routine Class: Nursing Unit Department [...]
--- OUTSIDE RECORDS SUMMARY | 2023-08-21 01:15 | External Medical Summary ---
Author Name Unknown Address Unknown Organization K01:LABORATORY [facility] - [facility] [address] [facility] [place] [address] Laboratory Report Ordering Provider Test Date Status AINL WEISS 08/15/2023 06:39:00 Final Observation Date Value Abnormality Reference (Units ) Status WBC, Total 08/15/2023 06:39:00 7.55 4.00-10.80 (K/uL) Final RBC 08/15/2023 06:39:00 4.60 4.50-5.25 (M/uL) Final Hemoglobin 08/15/2023 06:39:00 14.1 14.0-16.8 (g/dL) Final HCT 08/15/2023 06:39:00 40.0 40.0-48.4 (%) Final MCV 08/15/2023 06:39:00 87.0 82.0-99.5 (fL) Final MCH 08/15/2023 06:39:00 30.7 27.0-34.0 (pg) Final MCHC 08/15/2023 06:39:00 35.3 32.0-36.0 (g/dL) Final RDW 08/15/2023 06:39:00 12.8 11.5-15.5 (%) Final Platelets 08/15/2023 06:39:00 283 140-400 (K/uL) Final MPV 08/15/2023 06:39:00 9.3 6.6-11.1 (fL) Final Nucleated erythrocytes/100 leukocytes [Ratio] in Blood by Automated count 08/15/2023 06:39:00 0 <=0 (/100 WBCs) Final Performing Location LABORATORY [facility] - [address] [place] [address]
--- OUTSIDE RECORDS SUMMARY | 2023-08-21 01:15 | External Medical Summary ---
Author Name Unknown Address Unknown Organization K01:LABORATORY C - [address] [place] [address] Laboratory Report Ordering Provider Test Date Status ANIL WEISS 08/16/2023 06:58:00 Final Observation Date Value Abnormality Reference (Units ) Status Magnesium 08/16/2023 06:58:00 2.2 1.5-2.6 (m g/dL) Final Performing Location [facility] - [address] [place] [address]
--- OUTSIDE RECORDS SUMMARY | 2023-08-21 01:15 | External Medical Summary ---
Author Name Unknown Address Unknown Organization K01:LAB[facility]ATORY [facility] - [address] [place] [address] Laboratory Report Ordering Provider Test Date Status ANIL WEISS 08/15/2023 06:39:00 Final Observation Date Value Abnormality Reference (Units ) Status Magnesium 08/15/2023 06:39:00 2.1 1.5-2.6 (m g/dL) Final Performing Location [facility] - [address] [place] [address]
--- OUTSIDE RECORDS SUMMARY | 2023-08-21 01:15 | External Medical Summary ---
Author Name Unknown Address Unknown Organization K01:LABORATORY [facility] - [facility] [address] [facility] [address] Laboratory Report Ordering Provider Test Date Status ANIL WEISS 08/16/2023 06:58:00 Final Observation Date Value Abnormality Reference (Units ) Status WBC, Total 08/16/2023 06:58:00 8.84 4.00-10.80 (K/uL) Final RBC 08/16/2023 06:58:00 4.66 4.50-5.25 (M/uL) Final Hemoglobin 08/16/2023 06:58:00 14.5 14.0-16.8 (g/dL) Final HCT 08/16/2023 06:58:00 40.0 40.0-48.4 (%) Final MCV 08/16/2023 06:58:00 85.8 82.0-99.5 (fL) Final MCH 08/16/2023 06:58:00 31.1 27.0-34.0 (pg) Final MCHC 08/16/2023 06:58:00 36.3 32.0-36.0 (g/dL) Final RDW 08/16/2023 06:58:00 12.8 11.5-15.5 (%) Final Platelets 08/16/2023 06:58:00 276 140-400 (K/uL) Final MPV 08/16/2023 06:58:00 9.0 6.6-11.1 (fL) Final Nucleated erythrocytes/100 leukocytes [Ratio] in Blood by Automated count 08/16/2023 06:58:00 0 <=0 (/100 WBCs) Final Performing Location LABORATORY [facility] - [address] [place] [address]
--- OUTSIDE RECORDS SUMMARY | 2023-08-21 01:15 | External Medical Summary ---
Author Name Unknown Address Unknown Organization K01:LABORATORY C - [address] [place] [address] Laboratory Report Ordering Provider Test Date Status ANIL WEISS 08/16/2023 06:58:00 Final Observation Date Value Abnormality Reference (Units ) Status Phosphate 08/16/2023 06:58:00 3.3 2.5-4.8 (m g/dL) Final Performing Location [facility] - [address] [place] [address]
--- OUTSIDE RECORDS SUMMARY | 2023-08-21 01:16 | External Medical Summary ---
Author Name Unknown Address Unknown Organization K01:LABORATORY [facility] - [address] [place] [address] Laboratory Report Ordering Provider Test Date Status ORIANA PRICE 08/13/2023 13:20:00 Final Observation Date Value Abnormality Reference (Units ) Status ABO 08/13/2023 13:20:00 A Final RH 08/13/2023 13:20:00 Positive Final Performing Location LABORATORY [facility] - [address] [place] [address]
--- OUTSIDE RECORDS SUMMARY | 2023-08-21 01:16 | External Medical Summary ---
Author Name Unknown Address Unknown Organization K01:LABORATORY [facility] - [address] [place] [address] Laboratory Report Ordering Provider Test Date Status ANIL WEISS 08/14/2023 06:39:00 Final Observation Date Value Abnormality Reference (Units ) Status Phosphate 08/14/2023 06:39:00 2.8 2.5-4.8 (m g/dL) Final Performing Location [facility] - [address] [place] [address]
--- OUTSIDE RECORDS SUMMARY | 2023-08-21 01:16 | External Medical Summary ---
Author Name Unknown Address Unknown Organization K01:LABORATORY C - [address] [place] [address] Laboratory Report Ordering Provider Test Date Status ANIL WEISS 08/14/2023 06:39:00 Final Observation Date Value Abnormality Reference (Units ) Status Magnesium 08/14/2023 06:39:00 2.1 1.5-2.6 (m g/dL) Final Performing Location [facility] - [address] [place] [address]
--- OUTSIDE RECORDS SUMMARY | 2023-08-21 01:16 | External Medical Summary | Summary of Care ---
Author Name Unknown Organization [facility] Address [address] [place] [address] Phone [phone] Care Team Providers Care Valet Name Role Phone Patrice LOPEZ MD, Belem Adamson Primary Care Provider Un available Reason for Visit * Reason Comments [facility] Encounter Details Date Type Department Care Team (Late st Contact Info) Description 08/13/2023 11:50 AM EDT Documentation [facility] [place] [address] [place] [address] 2, [facility] [address] [place], [place] [id number] Trauma* Allergies No known active allergiesdocumented as of this encounter (statuses as of 08/13/2023) Medications No known medicationsdocumented as of this encounter (statuses as of 08/13/2023) Active Problems Problem Noted Date Diagnosed Date Fall from ladder 08/13/2023 Intracranial bleed 08/13/2023 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 documented as of this encounter (statuses as of 08/13/2023) Immunizations Name Administration Dates Next Due TDAP [...] on file Sexual Orientation Not on file documented as of this [...] No 08/13/2023 documented as of this encounter Progress Notes * Can Hyman, RN - 08/13/2023 3:58 PM EDT MEDICARE AMBULANCE INFORMATION SHEET Patient Admitted as an Inpatient: yes Certifying Physician/Ordering Service:[facility] Physician - Doug Moody M.D. [facility] [address] [place] [address] Point of Carpet Journeyman (zip code required): Hospital - [facility] - [address] [place] [address] E; [place] [address] Destination (Specify Name/Address): [facility] - [address]; [place] [address] Patient transported to nearest facility (capable of mgmt for Pt's condition): YES Total number of Loaded Miles: 66.5 miles Mode of Transport: Air Completed by: Can Hyman RN documented in this encounter Plan of Treatment [...] as of this encounter Visit Diagnoses Diagnosis Trauma- Primary Injury, other and unspecified, unspecified site documented in this encounter Advance Directives Latest Code Status on File Code Status Date Activated Date Inactivated Comments Full Code 08/13/2023 1:24 PM This order reflects the patients wishes and were consensually agreed upon. Question Answer Comments Discussion of Advance Directives occurred with: Patient Care Teams Valet Relationship Specialty Start Date End Date Belem Ibrahim III, MD PCP - General 08/06/09 documented as of this encounter
--- OUTSIDE RECORDS SUMMARY | 2023-08-21 01:16 | External Medical Summary ---
Author Name Unknown Address Unknown Organization K01:[place] [facility] [place] [address] [place] [id number] Laboratory Report Ordering Provider Test Date Status ORIANA PRICE 08/13/2023 17:18:40 Final Cutoff Concentrations:
Drug Level
Amphetamines 500 ng/mL
Benzodiazepines 100 ng/mL
Cannabinoids 50 ng/mL
Cocaine Metabolite 150 ng/mL
Fentanyl 1 ng/mL
Hydrocodone / Hydromorphone 300 ng/mL
Methadone Metabolite 100 ng/mL
Morphine / Codeine 300 ng/mL
Oxycodone / Oxymorphone 100 ng/mL

Screening results are presumptive and can only be used for medical purposes. Positive screening results are reflexed to confirmatory testing. Observation Date Value Abnormality Reference (Units ) Status Amphetamines, Urine screen 08/13/2023 17:18:40 Positive Abnormal Negative Final Benzodiazepines, Urine screen 08/13/2023 17:18:40 Negative Negative Final Cannabinoids, Urine screen 08/13/2023 17:18:40 Positive Abnormal Negative Final Cocaine Metabolite, Urine screen 08/13/2023 17:18:40 Negative Negative Final fentaNYL [Presence] in Urine by Screen method 08/13/2023 17:18:40 Negative Negative Final HYDROcodone [Presence] in Urine by Screen method 08/13/2023 17:18:40 Negative Negative Final 7-Oihtpvmwsg-3,5-Dimeth yl-3,3-Diphenylpyrrolid ine (EDDP) [Presence] in Urine 08/13/2023 17:18:40 Negative Negative Final Opiates, Urine screen 08/13/2023 17:18:40 Positive Abnormal Negative Final oxyCODONE [Presence] in Urine by Screen method 08/13/2023 17:18:40 Negative Negative Final Performing Location [place] [facility] [place] [address] [facility] [address]
--- OUTSIDE RECORDS SUMMARY | 2023-08-21 01:16 | External Medical Summary ---
Author Name Unknown Address Unknown Organization K01:LABORATORY [facility] - [address] [place] [address] Laboratory Report Ordering Provider Test Date Status ORIANA PRICE 08/13/2023 17:18:40 Final Cutoff Concentration:
D rug Level
THC-COOH 10 ng/mL

This test was developed and its performance characteristics determined by [employer]. It has not been cleared or approved by the US Food and Drug Administration.
null Observation Date Value Abnormality Reference (Units ) Status METHODOLOGY 08/13/2023 17:18:40 LC-MS/MS Final Cannabinoids, Urine confirmatory 08/13/2023 17:18:40 >400 Above high normal Negative (ng/mL) Final Performing Location LABORATORY [facility] - Formerly named [facility] [address] [place] [address]
--- OUTSIDE RECORDS SUMMARY | 2023-08-21 01:16 | External Medical Summary ---
Author Name Unknown Address Unknown Organization K01:[place]ATORY [facility] [place] - [facility] [address] [facility] [address] Laboratory Report Ordering Provider Test Date Status ORIANA PRICE 08/13/2023 17:18:40 Final Cutoff Concentrations:
D rug Level
Codeine 40 ng/mL
Morphine 40 ng/mL
Hydrocodone 40 ng/mL
Hydromorphone 40 ng/mL
Dihydrocodeine 40 ng/mL
Oxycodone 50 ng/mL
Oxymorphone 50 ng/mL

This test was developed and its performance characteristics determined by [employer]. It has not been cleared or approved by the US Food and Drug Administration. Observation Date Value Abnormality Reference (Units ) Status METHODOLOGY 08/13/2023 17:18:40 LC-MS/MS Final Codeine 08/13/2023 17:18:40 Negative Negative Final Morphine, Urine confirmatory 08/13/2023 17:18:40 1323 Above high normal Negative (ng/mL) Final HYDROcodone cutoff [Mass/volume] in Urine for Confirmatory method 08/13/2023 17:18:40 Negative Negative Final HYDROmorphone [Mass/volume] in Urine 08/13/2023 17:18:40 Negative Negative Final Dihydrocodeine [Mass/volume] in Urine by Confirmatory method 08/13/2023 17:18:40 Negative Negative Final oxyCODONE [Presence] in Urine by Screen method 08/13/2023 17:18:40 Negative Negative Final oxyMORphone cutoff [Mass/volume] in Urine for Confirmatory method 08/13/2023 17:18:40 Negative Negative Final Performing Location LABORATORY [facility] [place] [address] [place] [address]
--- OUTSIDE RECORDS SUMMARY | 2023-08-21 01:16 | External Medical Summary ---
Author Name Unknown Address Unknown Organization K01:[facility]ATORY [facility] [place] [address] [place] [address] Laboratory Report Ordering Provider Test Date Status ORIANA PRICE 08/13/2023 13:20:00 Final Anticoagulation may affect t esting. Refer to [facility] Test Catalog for a list of effects. Observation Date Value Abnormality Reference (Units ) Status aPTT panel - Platelet poor plasma 08/13/2023 13:20:00 29 21-38 (seconds) Final Performing Location LABORATORY [facility] [place] - [address] [place] [address]
--- OUTSIDE RECORDS SUMMARY | 2023-08-21 01:16 | External Medical Summary ---
Author Name Unknown Address Unknown Organization K01:[place] [facility] [place] [address] [place] [address] Laboratory Report Ordering Provider Test Date Status ANIL WEISS 08/14/2023 06:39:00 Final Observation Date Value Abnormality Reference (Units ) Status BUN 08/14/2023 06:39:00 16 6-20 (mg/dL) Final Creatinine 08/14/2023 06:39:00 0.6 0.6-1.2 (mg/dL) Final Glomerular filtration rate/1.73 sq M.predicted [Volume Rate/Area] in Serum, Plasma or Blood by Creatinine-based formula (CKD-EPI) 08/14/2023 06:39:00 >90 >=60 (mL/min) Final eGFR is calculated based on the CKD-EPI 2020 equation SODIUM 08/14/2023 06:39:00 135 135-146 (m mol/L) Final Potassium 08/14/2023 06:39:00 3.7 3.5-5.1 (m mol/L) Final Cl 08/14/2023 06:39:00 102 98-107 (mm ol/L) Final CO2 08/14/2023 06:39:00 23 22-32 (mmo l/L) Final Anion gap 08/14/2023 06:39:00 10 7-15 (mmol /L) Final Glucose 08/14/2023 06:39:00 106 70-120 (mg /dL) Final Calcium 08/14/2023 06:39:00 8.6 8.4-10.2 ( mg/dL) Final Performing Location LAB[facility]ATORY [facility] [place] [address] [place] [address]
--- OUTSIDE RECORDS SUMMARY | 2023-08-21 01:16 | External Medical Summary ---
Author Name Unknown Address Unknown Organization K01:[facility]ORY [facility] [place] [address] [place] [address] Laboratory Report Ordering Provider Test Date Status ORIANA PRICE 08/13/2023 13:20:00 Final Observation Date Value Abnormality Reference (Units ) Status Lactic Acid 08/13/2023 13:20:00 1.3 0.4-2.0 (mmol/L) Final Performing Location LABORATORY [facility] - [address] [place] [address]
--- OUTSIDE RECORDS SUMMARY | 2023-08-21 01:16 | External Medical Summary ---
Author Name Unknown Address Unknown Organization K01:[facility]ORY [facility] [place] [address] [place] [address] Laboratory Report Ordering Provider Test Date Status ORIANA PRICE 08/13/2023 17:18:40 Final Observation Date Value Abnormality Reference (Units) Status Bacteria identified in Specimen by Culture 08/13/2023 17:18:40 No significant growth Final Test: Culture, Urine, Quanti tative
Specimen Source: Urine, Clean Catch
Specimen Type: Urine
Specimen Date: 08/13/2023 5:18 PM
Result Date: 08/14/2023 1:30 PM
Result Status: Final result
Resulting Lab: [facility] [place]
[address]
[place] [address]

CULTURE

No significant growth

null Performing Location [facility] [place] [address] [facility] [address]
--- OUTSIDE RECORDS SUMMARY | 2023-08-21 01:16 | External Medical Summary ---
Author Name Unknown Address Unknown Organization K01:[facility]ORY [facility] [place] - [facility] [address] [place] [address] Laboratory Report Ordering Provider Test Date Status ANIL WEISS 08/14/2023 06:39:00 Final Observation Date Value Abnormality Reference (Units ) Status Calcium.ionized [Moles/volume] in Serum or Plasma by Ion-selective membrane electrode (ISE) 08/14/2023 06:39:00 1.19 1.13-1.32 (mmol/L) Final This test was developed and its performance characteristics dtermined by [employer]. It has not been cleared or approved by the US Food and Drug Administration Performing Location LABORATORY [place] [address] [place] [address]
--- OUTSIDE RECORDS SUMMARY | 2023-08-21 01:16 | External Medical Summary ---
Author Name Unknown Address Unknown Organization K01:LABORATORY [facility] - [address] [facility] [address] Laboratory Report Ordering Provider Test Date Status ORIANA PRICE 08/13/2023 17:18:40 Final Observation Date Value Abnormality Reference (Units) Status Color of Urine by Auto 08/13/2023 17:18:40 Light Yellow Colorless, Light Yellow, Yellow, Dark Yellow Final Clarity, Urine 08/13/2023 17:18:40 Clear Clear Final Glucose [Mass/volume] in Urine by Automated test strip 08/13/2023 17:18:40 Negative Negative (mg/dL) Final Bilirubin.total [Presence] in Urine by Automated test strip 08/13/2023 17:18:40 Negative Negative Final Ketones [Mass/volume] in Urine by Automated test strip 08/13/2023 17:18:40 15 Abnormal Negative (mg/dL) Final Specific gravity, Urine 08/13/2023 17:18:40 >1.050 Above high normal 1.003-1.030 Final Hemoglobin [Presence] in Urine by Automated test strip 08/13/2023 17:18:40 Negative Negative Final pH, Urine 08/13/2023 17:18:40 6.5 5.0-7.5 (Units) Final Protein [Mass/volume] in Urine by Automated test strip 08/13/2023 17:18:40 30 Abnormal Negative (mg/dL) Final Urobilinogen [Mass/volume] in Urine by Automated test strip 08/13/2023 17:18:40 2.0 Abnormal Normal (mg/dL) Final Nitrite [Presence] in Urine by Automated test strip 08/13/2023 17:18:40 Negative Negative Final Leukocyte esterase [Presence] in Urine by Automated test strip 08/13/2023 17:18:40 Negative Negative Final RBC, Urine 08/13/2023 17:18:40 0-2 0-2 (/HPF) Final WBC, Urine 08/13/2023 17:18:40 0-2 0-2 (/HPF) Final Bacteria [#/area] in Urine sediment by Microscopy high power field 08/13/2023 17:18:40 0-25 0-25 (/HPF) Final Performing Location LABORATORY [facility] - [facility] [address] [facility] [address]
--- OUTSIDE RECORDS SUMMARY | 2023-08-21 01:16 | External Medical Summary ---
Author Name Unknown Address Unknown Organization K01:[place] [facility] [place] [address] [place] [address] Laboratory Report Ordering Provider Test Date Status ORIANA PRICE 08/13/2023 13:20:00 Final Observation Date Value Abnormality Reference (Units ) Status AST (Aspartate aminotransferase) 08/13/2023 13:20:00 22 10-50 (U/L) Final Result may be falsely elevat ed due to hemolysis. Performing Location LAB[facility]ORY [facility] [place] - [address] [place] [address]
--- OUTSIDE RECORDS SUMMARY | 2023-08-21 01:16 | External Medical Summary | Summary of Care ---
Author Name Unknown Organization [facility] Address [address] [place] [address] Phone [phone] Care Team Providers Care Data Analysis Assistant Name Role Phone Unavailable Primary Care Provider Unavailabl e Reason for Visit * Reason Comments [facility] Encounter Details Date Type Department Care Team (Late st Contact Info) Description 08/13/2023 11:50 AM EDT Documentation [facility] [place] [address] [place] [address] 2, [facility] [address], [place] [id number] Trauma* Allergies No known active allergiesdocumented as of this encounter (statuses as of 08/14/2023) Medications No known medicationsdocumented as of this encounter (statuses as of 08/14/2023) Active Problems Problem Noted Date Diagnosed Date Fall from ladder 08/13/2023 Intracranial bleed 08/13/2023 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 documented as of this encounter (statuses as of 08/14/2023) Immunizations Name Administration Dates Next Due TDAP [...] Admitted as an Inpatient: yes Certifying Physician/Ordering Service:[facility] ED Physician - Doug Moody M.D. [facility] [address] [place] [address] Point of Critical Care Specialist (zip code required): [facility] - [address]; [place] [address] Destination (Specify Name/Address): [facility] - [address]; [place] [address] Patient transported to nearest facility (capable of mgmt for Pt's condition): YES Total number of Loaded Miles: 66.5 miles Mode of Transport: Air Completed by: Can Hyman, RN documented in this encounter Plan of [...]
--- OUTSIDE RECORDS SUMMARY | 2023-08-21 01:16 | External Medical Summary ---
Author Name Unknown Address Unknown Organization K01:LABORATORY [facility] - [facility] [address] [place] [address] Laboratory Report Ordering Provider Test Date Status ANIL WEISS 08/14/2023 06:38:00 Final Observation Date Value Abnormality Reference (Units ) Status WBC, Total 08/14/2023 06:38:00 8.73 4.00-10.80 (K/uL) Final RBC 08/14/2023 06:38:00 4.63 4.50-5.25 (M/uL) Final Hemoglobin 08/14/2023 06:38:00 14.3 14.0-16.8 (g/dL) Final HCT 08/14/2023 06:38:00 41.0 40.0-48.4 (%) Final MCV 08/14/2023 06:38:00 88.6 82.0-99.5 (fL) Final MCH 08/14/2023 06:38:00 30.9 27.0-34.0 (pg) Final MCHC 08/14/2023 06:38:00 34.9 32.0-36.0 (g/dL) Final RDW 08/14/2023 06:38:00 13.2 11.5-15.5 (%) Final Platelets 08/14/2023 06:38:00 277 140-400 (K/uL) Final MPV 08/14/2023 06:38:00 9.1 6.6-11.1 (fL) Final Nucleated erythrocytes/100 leukocytes [Ratio] in Blood by Automated count 08/14/2023 06:38:00 0 <=0 (/100 WBCs) Final Performing Location LAB[facility]ORY [facility] - [address] [place] [address]
--- OUTSIDE RECORDS SUMMARY | 2023-08-21 01:16 | External Medical Summary ---
Author Name Unknown Address Unknown Organization K01:[place] [place] [address] [facility] [address] Laboratory Report Ordering Provider Test Date Status ANIL WEISS 08/13/2023 13:38:24 Final SCREENING Observation Date Value Abnormality Reference (Units ) Status SARS Coronavirus 2 08/13/2023 13:38:24 Negative N egative Final 2019 Novel Coronavirus not d etected.

This express test was developed and its performance characteristics determined by [employer]. It has not been cleared or approved [...] (RT-PCR) test, or a Centers for Disease Control-acceptable equivalent. The test is performed in a high complexity Clinical Laboratory Improvement Amendments-(CLIA) certified laboratory. The test is acceptable for SARS-CoV-2 diagnosis, surveillance, and travel within the [place] and to most countries. Please check with local testing authorities about requirements before travel.

The validation of bronchial specimens, tracheal aspirates, and sputum for this assay was developed and performance characteristics determined by [employer]. The validation of alternate specimen types has not been cleared or approved by the U.S. Food and Drug Administration (FDA). It has been determined that such clearance is not necessary. Performing Location LAB[facility]ATORY [facility] [place] [address] [facility] [address]
--- OUTSIDE RECORDS SUMMARY | 2023-08-21 01:16 | External Medical Summary ---
Author Name Unknown Address Unknown Organization K01:[place] [facility] [place] [facility] [address] [facility] [address] Laboratory Report Ordering Provider Test Date Status ORIANA PRICE 08/13/2023 17:18:40 Final Cutoff Concentrations:
D rug Level
Amphetamine 50 ng/mL
Methamphetamine 50 ng/mL
Phentermine 50 ng/mL
Pseudoephedrine 50 ng/mL
MDMA/Ecstasy 50 ng/mL

This test was developed and its performance characteristics determined by [employer]. It has not been cleared or approved by the US Food and Drug Administration. Observation Date Value Abnormality Reference (Units) Status METHODOLOGY 08/13/2023 17:18:40 LC-MS/MS Final Amphetamine, Urine confirmatory 08/13/2023 17:18:40 >5000 Above high normal Negative (ng/mL) Final Methamphetamine, Urine confirmatory 08/13/2023 17:18:40 >5000 Above high normal Negative (ng/mL) Final Phentermine cutoff [Mass/volume] in Urine for Confirmatory method 08/13/2023 17:18:40 Negative Negative Final PSEUDOEPHEDRINE CONFIRMATION, U (CATEGORY) 08/13/2023 17:18:40 Negative Negative Final 1-Gxhfobemzy-6,5-Dimeth yl-3,3-Diphenylpyrrolid ine (EDDP) [Mass/volume] in Urine by Confirmatory method 08/13/2023 17:18:40 Negative Negative Final Performing Location [facility] [place] [facility] [address] [facility] [address] [facility] [address] [facility] [address]
--- OUTSIDE RECORDS SUMMARY | 2023-08-21 01:16 | External Medical Summary ---
Author Name Unknown Address Unknown Organization K01:LABORATORY [place] [address] [facility] [address] Laboratory Report Ordering Provider Test Date Status ORIANA PRICE 08/13/2023 13:20:00 Final Observation Date Value Abnormality Reference (Units ) Status WBC, Total 08/13/2023 13:20:00 12.05 Above high normal 4.00-10.80 (K/uL) Final RBC 08/13/2023 13:20:00 4.68 4.50-5.25 (M/uL) Final Hemoglobin 08/13/2023 13:20:00 14.4 14.0-16.8 (g/dL) Final HCT 08/13/2023 13:20:00 40.9 40.0-48.4 (%) Final MCV 08/13/2023 13:20:00 87.4 82.0-99.5 (fL) Final MCH 08/13/2023 13:20:00 30.8 27.0-34.0 (pg) Final MCHC 08/13/2023 13:20:00 35.2 32.0-36.0 (g/dL) Final RDW 08/13/2023 13:20:00 13.2 11.5-15.5 (%) Final Platelets 08/13/2023 13:20:00 310 140-400 (K/uL) Final MPV 08/13/2023 13:20:00 8.7 6.6-11.1 (fL) Final Nucleated erythrocytes/100 leukocytes [Ratio] in Blood by Automated count 08/13/2023 13:20:00 0 <=0 (/100 WBCs) Final Performing Location LABORATORY [facility] [place] - [address] [place] [address]
--- OUTSIDE RECORDS SUMMARY | 2023-08-21 01:16 | External Medical Summary ---
Author Name Unknown Address Unknown Organization K01:LABORATORY [facility] [place] [address] [place] [address] Laboratory Report Ordering Provider Test Date Status ORIANA PRICE 08/13/2023 13:20:00 Final Observation Date Value Abnormality Reference (Units ) Status BUN 08/13/2023 13:20:00 17 6-20 (mg/dL) Final Creatinine 08/13/2023 13:20:00 0.5 Below low normal 0.6-1.2 (mg/dL) Final Glomerular filtration rate/1.73 sq M.predicted [Volume Rate/Area] in Serum, Plasma or Blood by Creatinine-based formula (CKD-EPI) 08/13/2023 13:20:00 >90 >=60 (mL/min) Final eGFR is calculated based on the CKD-EPI 2020 equation SODIUM 08/13/2023 13:20:00 132 Below low normal 135 -146 (mmol/L) Final Potassium 08/13/2023 13:20:00 3.9 3.5-5.1 (m mol/L) Final Cl 08/13/2023 13:20:00 98 98-107 (mm ol/L) Final CO2 08/13/2023 13:20:00 23 22-32 (mmo l/L) Final Anion gap 08/13/2023 13:20:00 11 7-15 (mmol /L) Final Glucose 08/13/2023 13:20:00 126 Above high normal 70 -120 (mg/dL) Final Calcium 08/13/2023 13:20:00 8.9 8.4-10.2 ( mg/dL) Final Performing Location LABORATORY [facility] [place] - [address] [place] [address]
--- OUTSIDE RECORDS SUMMARY | 2023-08-21 01:16 | External Medical Summary ---
Author Name Unknown Address Unknown Organization K01:[place] [facility] [place] [address] [place] [address] Laboratory Report Ordering Provider Test Date Status ORIANA PRICE 08/13/2023 13:20:00 Final Warfarin Therapy
INR: 2 .0-3.0 conventional anticoagulation
INR: 2.5- 3.5 high intensity anticoagulation Observation Date Value Abnormality Reference (Units ) Status PT 08/13/2023 13:20:00 13.0 11.6-15.2 (seconds) Final INR 08/13/2023 13:20:00 1.0 0.8-1.2 Final Performing Location [facility] [place] [address] [place] [address]
--- OUTSIDE RECORDS SUMMARY | 2023-08-21 01:17 | External Medical Summary ---
Author Name Unknown Address Unknown Organization K01:LABORATORY [facility] [place] [address] [facility] [place] [address] Laboratory Report Ordering Provider Test Date Status ORIANA PRICE 08/13/2023 13:20:00 Final Observation Date Value Abnormality Reference (Units ) Status SYNC LEUKOCYTES IN BLOOD BY AUTOMATED COUNT 08/13/2023 13:20:00 12.05 Above high normal 4.00-10.80 (K/uL) Final Segs 08/13/2023 13:20:00 82.1 Above high normal 40.0-75.0 (%) Final Lymphs % 08/13/2023 13:20:00 11.0 Below low normal 18.0-42.0 (%) Final Monos 08/13/2023 13:20:00 6.5 1.0-11.0 (%) Final Eosinophils 08/13/2023 13:20:00 0.0 0.0-6.0 (%) Final Basos 08/13/2023 13:20:00 0.1 0.0-2.0 (%) Final Immature Granulocyte, Percent 08/13/2023 13:20:00 0.3 0.0-2.0 (%) Final Absolute Segs 08/13/2023 13:20:00 9.90 Above high normal 1.80-7.70 (K/uL) Final Lymphs, absolute 08/13/2023 13:20:00 1.32 1.00-4.80 (K/ul) Final Monos, Abs 08/13/2023 13:20:00 0.78 0.00-1.10 (K/uL) Final Eos, Abs 08/13/2023 13:20:00 0.00 0.00-0.70 (K/uL) Final Basos, Abs 08/13/2023 13:20:00 0.01 0.00-0.20 (K/uL) Final Immature Granulocytes, Number 08/13/2023 13:20:00 0.04 0.00-0.20 (K/uL) Final Performing Location LABORATORY [facility] [place] - [facility] [address] [facility] [address]
--- OUTSIDE RECORDS SUMMARY | 2023-08-21 01:17 | External Medical Summary ---
Author Name Unknown Address Unknown Organization K01:LABORATORY [facility] - [address] [place] [address] Laboratory Report Ordering Provider Test Date Status ORIANA PRICE 08/13/2023 13:20:00 Final Observation Date Value Abnormality Reference (Units ) Status Ethanol 08/13/2023 13:20:00 Negative Negative Final Performing Location LABORATORY [facility] - [address] [place] [address]
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
[2023-08-21 04:33] LABS: Basophils # (auto) 0.06 K/uL (0.00-0.20); Basophils % (auto) 0.8 %; Eosinophils # (auto) 0.17 K/uL (0.00-0.50); Eosinophils % (auto) 2.3 %; Hematocrit (blood only) 38.1 % (42.0-52.0); Hemoglobin 13.5 g/dl (14.0-18.0); Immature Granulocytes # (auto) 0.06 K/uL (0.01-0.20); Immature Granulocytes % (auto) 0.8 %; Lymphocytes # (auto) 1.48 K/uL (1.20-3.40); Lymphocytes % (auto) 20.1 %; Mean Corpuscular Hemoglobin 29.8 pg (25.0-34.0); Mean Corpuscular Hgb Conc 35.4 g/dL (32.0-36.0); Mean Corpuscular Volume 84.1 fL (80.0-100.0); Mean Platelet Volume 8.6 fL (9.4-12.4); Monocytes # (auto) 0.87 K/uL (0.11-0.59); Monocytes % (auto) 11.8 %; Neutrophils # (auto) 4.71 K/uL (1.40-6.50); Neutrophils % (auto) 64.2 %; Platelet Count 328 K/uL (130-400); RDW Standard Deviation 39.8 fL (36.4-46.3); Red Blood Count 4.53 M/uL (4.70-6.10); White Blood Count 7.35 K/ul (4.8-10.8)
[2023-08-21 04:47] LABS: BUN Creatinine Ratio 26.2 (10-20); Calcium 8.5 mg/dl (8.6-10.3); Creatinine Clr Calc Pharmacy 124.8 ml/min; Est GFR (African American) 123.2 ml/min; Est GFR (Non-African American) 106.3 ml/min; Potassium 3.7 mmol/L (3.5-5.1)
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
--- NOTE | 2023-08-21 08:50 | Electroencephalogram ---
EEG Procedure Note Date of Service August 21, 2023 Start / End Times Start Time: 06:16 End Time: 06:36 Referring Physician Sylvester Chavez History A 63-year-old male with possible seizure. EEG performed for evaluation of epileptiform activity. Home Medication List Medication Instructions Recorded Confirmed Type Wound Cream See Rx Instructions .Route .COMPLEX 08/20/23 08/20/23 History acetaminophen 325 mg PO UD PRN Pain 08/20/23 08/20/23 History docusate sodium 100 mg capsule 100 mg PO BID 08/20/23 08/20/23 History Inpatient Medication List Acetaminophen (Acetaminophen 325 Mg Tab) 650 mg PO Q4H PRN PRN Reason: Pain or Fever Stop: 09/19/23 22:01 Last Admin: 08/20/23 23:25 Dose: 650 mg Documented By: HAYLEY Docusate Sodium (Docusate Sodium 100 Mg Cap) 100 mg PO BID LISSA Stop: 09/19/23 22:01 Last Admin: 08/20/23 22:41 Dose: 100 mg Documented By: JAIME Discontinued Medications Oxycodone HCl (Oxycodone Hcl Ir 5 Mg Tab (Immediate Release)) 5 mg PO NOW STA Stop: 08/20/23 19:38 Last Admin: 08/20/23 19:45 Dose: 5 mg Documented By: JAIME Potassium Chloride (Potassium Chloride Crtab 20 Meq Tabcr) 20 meq PO NOW STA Stop: 08/20/23 22:00 Last Admin: 08/20/23 22:41 Dose: 20 meq Documented By: JAIME Description This is a 21 electrode EEG with a single channel dedicated to limited EKG. The electrodes were placed in accordance with the International 10-20 system. Report: At the onset of the EEG the patient appears drowsy. The background appears symmetric and continuous. Posterior dominant rhythm is 9 Hz with some intermixed theta delta activity. No stage 2 sleep transients are seen. Photic stimulation does not induce any abnormalities. Interpretation Impression: This is a normal drowsy appearing routine EEG. There is no evidence of epileptiform activity. A repeat EEG when the patient is more alert/awake may beneficial to better characterize the alert/awake background.
[2023-08-21] MEDS: levETIRAcetam IV 500 MG in SODIUM CHLOR 0.9% MINI-B 100 ML IV SCH (08:59)
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
[2023-08-21] MEDS: SENNA 8.6 MG TAB PO SCH (12:44)
[2023-08-21] MEDS: POLYETHYLENE (MIRALAX) 17 GM PACK PO SCH (12:45)
--- NOTE | 2023-08-21 14:39 | Electrocardiogram Report ---
Test Reason : Blood Pressure : / mmHG Vent. Rate : 057 BPM Atrial Rate : 057 BPM P-R Int : 168 ms QRS Dur : 090 ms QT Int : 410 ms P-R-T Axes : 055 038 045 degrees QTc Int : 399 ms Sinus bradycardia Abnormal ECG Confirmed by Agus Salmon ([id number]) on 08/21/2023 2:39:44 PM Referred By: REFERRED SELF Confirmed By:Shawn Salmon
[2023-08-21] MEDS: VALPROATE SOD 1,000 MG in DEXTROSE 5% 100 ML IV ONE (17:33)
[2023-08-22 05:13] LABS: Hemoglobin 13.5 g/dl (14.0-18.0); Mean Corpuscular Hemoglobin 29.9 pg (25.0-34.0); Mean Corpuscular Hgb Conc 35.5 g/dL (32.0-36.0); Mean Corpuscular Volume 84.3 fL (80.0-100.0); Mean Platelet Volume 8.3 fL (9.4-12.4); Platelet Count 337 K/uL (130-400); RDW Coefficient of Variation 12.8 % (11.5-14.5); RDW Standard Deviation 39.6 fL (36.4-46.3); Red Blood Count 4.51 M/uL (4.70-6.10); White Blood Count 6.98 K/ul (4.8-10.8)
[2023-08-22 05:30] LABS: BUN Creatinine Ratio 16.4 (10-20); Calcium 8.4 mg/dl (8.6-10.3); Est GFR (African American) 118.5 ml/min; Est GFR (Non-African American) 102.3 ml/min; Phosphorus 3.6 mg/dl (2.5-4.9); Potassium 4.2 mmol/L (3.5-5.1)
[2023-08-22] MEDS: levETIRAcetam 250 MG TAB PO SCH (08:07)
[2023-08-22] MEDS: VALPROATE SOD 500 MG in DEXTROSE 5% 50 ML IV SCH (08:08)
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
[2023-08-23 04:46] LABS: Hemoglobin 13.3 g/dl (14.0-18.0)
[2023-08-23 04:47] LABS: BUN Creatinine Ratio 16.4 (10-20); Calcium 8.7 mg/dl (8.6-10.3); Creatinine Clr Calc Pharmacy 129.6 ml/min; Est GFR (African American) 123.2 ml/min; Est GFR (Non-African American) 106.3 ml/min; Potassium 4.5 mmol/L (3.5-5.1)
[2023-08-23] MEDS: levETIRAcetam 250 MG TAB PO SCH (07:59)
[2023-08-23 12:22] LABS: Marijuana Quant, GCMS Urine 1458 ng/mL (<5)
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
[2023-08-24 04:46] LABS: Hematocrit (blood only) 37.7 % (42.0-52.0); Hemoglobin 12.9 g/dl (14.0-18.0); Mean Corpuscular Hemoglobin 29.5 pg (25.0-34.0); Mean Corpuscular Hgb Conc 34.2 g/dL (32.0-36.0); Mean Corpuscular Volume 86.1 fL (80.0-100.0); Mean Platelet Volume 8.5 fL (9.4-12.4); Platelet Count 346 K/uL (130-400); RDW Coefficient of Variation 13.1 % (11.5-14.5); RDW Standard Deviation 41.1 fL (36.4-46.3); Red Blood Count 4.38 M/uL (4.70-6.10); White Blood Count 7.61 K/ul (4.8-10.8)
[2023-08-24 04:59] LABS: BUN Creatinine Ratio 23.8 (10-20); Calcium 8.6 mg/dl (8.6-10.3); Creatinine Clr Calc Pharmacy 125.1 ml/min; Est GFR (African American) 121.6 ml/min; Est GFR (Non-African American) 104.9 ml/min; Potassium 4.4 mmol/L (3.5-5.1)
[2023-08-24] MEDS: DIVALPROEX DELAY RELEASE 500 MG TAB PO SCH (08:18)
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
--- NOTE | 2023-08-26 07:44 | Communication Note ---
Date of Service: August 26, 2023 Patient's calls to inquire that patient has been mean to her. Was frustrated that it was not his usual behavior and believes that he was discharged too early. Explained in detail that patient never showed any signs of aggression, agitation or combativeness and was oriented x3 while he is hospitalized. Advised to seek immediate medical attention and continue current medications. Also advised to follow-up with neurosurgery as intracranial hemorrhage at frontotemporal lobe likely contributing to change in patient's behavior. Patient cuts the call abruptly with expression of being frustrated.
== END 2023-08-24 18:49 | disposition home or self-care (01) | DRG 82 ==
LOC: ED 16:35 → SUATTDRO 20:35 → EDINP 20:35 → 1E 08-21 00:34
DX: S06.34AA Traumatic hemorrhage of right cerebrum with loss of consciousness status unknown, initial encounter; K59.00 Constipation, unspecified; Z79.899 Other long term (current) drug therapy; S06.5XAA Traumatic subdural hemorrhage with loss of consciousness status unknown, initial encounter; S06.35AA Traumatic hemorrhage of left cerebrum with loss of consciousness status unknown, initial encounter; W11.XXXA Fall on and from ladder, initial encounter; Z11.52 Encounter for screening for COVID-19; I10 Essential (primary) hypertension; Z87.891 Personal history of nicotine dependence; G93.6 Cerebral edema; E87.1 Hypo-osmolality and hyponatremia; G93.41 Metabolic encephalopathy; R44.3 Hallucinations, unspecified; S06.6XAA Traumatic subarachnoid hemorrhage with loss of consciousness status unknown, initial encounter